=== PATIENT | male | born 1965 | race Caucasian/White ===

== ENCOUNTER 2020-08-13 08:27 | Emergency (ER) | payer BC, SELFPAY ==
[2020-08-13 08:47] VITALS: BP 139/76; PULSE 66; RESP 16; TEMP 36.2; O2SAT 99
[2020-08-13 08:54] VITALS: BP 139/76; PULSE 66; RESP 16; TEMP 36.2; O2SAT 99
--- NOTE | 2020-08-13 09:02 | ED.SKABFB ---
HPI - Skin/Abscess/Foreign Bdy General Chief complaint: Skin/Abscess/Foreign Body Stated complaint: spider bite Time Seen by Provider: 08/13/20 08:55 Source: patient and RN notes reviewed Mode of arrival: ambulatory Limitations: no limitations History of Present Illness HPI narrative: 54-year-old male presents with concern for possible spider bite. Reports he was rehabbing an old house, tearing out stallings yesterday. Reports last night he noticed a red area on his left neck that resembled a mosquito bite. Reports it was itchy. Reports this morning the area has a blackened center and the redness has gotten larger. He denies any intervention. He denies any difficulty swallowing, swollen lips, swollen tongue, fever, malaise, body aches. Denies any drainage from the area. MD complaint: insect bite/sting Related Data Home Medications Medication Instructions Recorded Confirmed amlodipine [Norvasc] 5 mg PO DAILY 08/13/20 08/13/20 Allergies Allergy/AdvReac Type Severity Reaction Status Date / Time No Known Allergies Allergy Verified 08/13/20 08:44 Review of Systems Review of Systems: Narrative: CONSTITUTIONAL: Denies malaise, chills, sweats, or fever. EYES: Denies visual changes, redness, or discharge. ENT: Denies swollen lips, swollen tongue, difficulty swallowing CARDIOVASCULAR: Denies chest pain, palpitations, or edema. RESPIRATORY: Denies dyspnea. GASTROINTESTINAL: Denies abdominal pain, nausea, vomiting SKIN: Reports red, itchy area with black center on the left side of his neck MUSCULOSKELETAL: Denies myalgia. NEUROLOGIC: Denies numbness, weakness, or headache. All systems reviewed & are unremarkable except as noted in HPI and below PMFSH Social History Social History Gender identity (if verbalized by the patient): Male Comments At time of signature, agree with nursing past medical, surgical, social and family history. There is no relevant family history pertinent to the presenting complaint Exam Narrative: Exam Narrative: GENERAL: Well-appearing, well-nourished, and in no acute distress. HEAD: Normocephalic, atraumatic. EYES: PERRLA, conjunctivae clear, and EOMI. ENT: Mucous membranes moist. Oropharynx without edema, erythema or lesions. NECK: Supple. No lymphadenopathy CHEST: Clear to auscultation. No respiratory distress. Speaks in full sentences HEART: Regular rate and rhythm. SKIN: Warm, dry. 3 cm in diameter area of erythema with mild edema noted to the left-sided anterior neck, no fluctuation, less than 0.5 cm central area of darkness, ecchymosis. No ulceration, drainage noted. NEURO: Alert and oriented x3. PSYCH: Normal mood and affect Course Course Emergency Course: Patient is aware of diagnosis, understands and agrees to treatment plan. Anticipatory guidance given. Patient agrees to follow-up as directed and is aware of reasons to seek care at the emergency department. Portions of this record may have been created with voice recognition software Vital Signs Vital signs: Vital Signs Temperature 97.1 F L 08/13/20 08:47 Pulse Rate 66 08/13/20 08:47 Respiratory Rate 16 08/13/20 08:47 Blood Pressure 139/76 08/13/20 08:47 Pulse Oximetry 99 08/13/20 08:47 Temperature 97.1 F L 08/13/20 08:54 Pulse Rate 66 08/13/20 08:54 Respiratory Rate 16 08/13/20 08:54 Blood Pressure 139/76 08/13/20 08:54 Pulse Oximetry 99 08/13/20 08:54 Reviewed. MDM - Skin/Abscess/Foreign Bdy MDM Narrative Medical decision making narrative: Exam findings show no acute concerns or changes; patient is non-toxic appearing and is in no distress. Patient is appropriate for outpatient treatment and follow-up. Differential Diagnosis Differential diagnosis: Likely abscess of skin or subcutaneous tissue, cellulitis and insect bites Critical Care Time Critical Care Time Critical Care Time: No Discharge Plan Discharge Clinical Impression: Spider bite Qualifiers: Encounter type: initi
== END 2020-08-13 09:10 | disposition home or self-care (01) ==
PROVIDERS: Emergency Provider Nurse Practitioner; PCP Nurse Practitioner Adult Health
DX: T63.304A Toxic effect of unspecified spider venom, undetermined, initial encounter (principal); I10 Essential (primary) hypertension
CPT/HCPCS: 99211; G0463

== ENCOUNTER 2020-08-14 06:38 | Emergency (ER) | payer BC, SELFPAY ==
[2020-08-14 06:48] VITALS: BP 151/77; PULSE 84; RESP 18; TEMP 36.6; O2SAT 98
--- NOTE | 2020-08-14 06:56 | ED.WOUNDLAC ---
HPI - Wound/Laceration General Chief Complaint: Wound/Laceration Stated Complaint: spider bite Time Seen by Provider: 08/14/20 06:53 Source: patient Mode of arrival: ambulatory Limitations: no limitations History of Present Illness HPI narrative: This is a 54 year old male who presents for evaluation of a possible spider bite. He noticed a red wound to his left neck yesterday. He was evaluated at [facility] yesterday for presumed spider bite because he noticed a central area of ecchymosis. He states the redness has continued to spread so he came to ER for evaluation. He reports the area is painful to touch. He denies purulent drainage. He denies fever, chills, nausea, vomiting or shortness of breath. He is unsure of his last tetanus Related Data Home Medications Medication Instructions Recorded Confirmed amlodipine [Norvasc] 5 mg PO DAILY 08/13/20 08/13/20 Allergies Allergy/AdvReac Type Severity Reaction Status Date / Time No Known Allergies Allergy Verified 08/13/20 08:44 Review of Systems Review of Systems: All systems reviewed & are unremarkable except as noted in HPI and below PMFSH Past Medical History Medical History (Updated 08/14/20 @ 07:07 by Shaina Ruiz MD) Hypertension Surgical History Surgical History (Updated 08/14/20 @ 07:00 by Shaina Ruiz MD) H/O kyphoplasty Social History Social History (Updated 08/14/20 @ 07:00 by Shaina Ruiz MD) Smoking status: Never smoker Gender identity (if verbalized by the patient): Male Exam Const: General: no acute distress and alert Orientation/consciousness: patient oriented x3 HENMT: Head: normocephalic and atraumatic Face and sinus: normal facial exam and face symmetric Eyes: EOM: EOMs intact bilaterally Skin: Other: left anterior lower neck with area 6 x 5 cm erythema, induration, tenderness, no fluctuance, no drainage, there is small central area of ecchymosis Neuro: General: patient oriented x3 and moves all extremities Psych: Mental Status: mental status grossly normal Affect: normal affect Course Reevaluation(s) Reevaluation #1: I Discussed with patient discharge plan to treat with antibiotics for cellulitis as he has not been started on any yet. He is agreeable to plan. He is non toxic appearing. Date: 08/14/20 Time: 07:05 Vital Signs Vital signs: Vital Signs Temperature 97.8 F 08/14/20 06:48 Pulse Rate 84 08/14/20 06:48 Respiratory Rate 18 08/14/20 06:48 Blood Pressure 151/77 H 08/14/20 06:48 Pulse Oximetry 98 08/14/20 06:48 Temperature 97.8 F 08/14/20 06:48 Pulse Rate 84 08/14/20 06:48 Respiratory Rate 18 08/14/20 06:48 Blood Pressure 151/77 H 08/14/20 06:48 Pulse Oximetry 98 08/14/20 06:48 Discharge Plan Discharge Clinical Impression: Cellulitis Qualifiers: Site of cellulitis: neck Qualified Code(s): L03.221 - Cellulitis of neck Patient Disposition: Home, Self-Care Condition: Stable Instructions: Antibiotic Form, Cellulitis (ED) Additional Instructions: Take antibiotics as prescribed. Take antibiotics until completion. You redness should improve after taking 48 hours of antibiotics . Return to ER if you develop vomiting, fever, worsening symptoms even after taking antibiotics for 48 hours. Prescriptions: New cephalexin 500 mg capsule 500 mg PO Q6H 10 Days Qty: 40 RF: 0 sulfamethoxazole-trimethoprim [Bactrim DS] 800-160 mg tablet 1 tablet PO Q12H Qty: 20 RF: 0 No Action amlodipine [Norvasc] 5 mg Tablet 5 mg PO DAILY RF: 0 Follow-up/Referrals: Bree,SHARLENE Ramos [Primary Care Provider] -
[2020-08-14] MEDS: TETANUS,DIPHTHERIA,AC PERTUSSIS ADULT (0.5 ML) BOOSTRIX IM (07:03)
[2020-08-14] MEDS: CEPHALEXIN 500 MG CAPSULE PO (07:03)
[2020-08-14 07:46] VITALS: BP 145/79; PULSE 78; RESP 16; O2SAT 97
== END 2020-08-14 07:48 | disposition home or self-care (01) ==
PROVIDERS: Emergency Provider General Practice; PCP Nurse Practitioner Adult Health
DX: L03.221 Cellulitis of neck (principal); I10 Essential (primary) hypertension; Z23 Encounter for immunization
CPT/HCPCS: 90471; 90715; 99283; A9270

== ENCOUNTER 2021-02-05 08:31 | Emergency (ER) | payer BC, SELFPAY ==
[2021-02-05 08:45] VITALS: BP 143/76; PULSE 76; RESP 18; TEMP 36.6; O2SAT 100
--- NOTE | 2021-02-05 08:57 | ED.SKABFB ---
HPI - Skin/Abscess/Foreign Bdy General Chief complaint: Skin/Abscess/Foreign Body Stated complaint: Possible Shingles Time Seen by Provider: 02/05/21 08:59 Source: patient, RN notes reviewed and old records reviewed Mode of arrival: ambulatory Limitations: no limitations History of Present Illness HPI narrative: 55-year-old male who presents to [facility] care with complaints of redness on scalp left occipital area with pain and itching and radiation down to left neck. Patient states that he started with a tender spot of his left occipital scalp area with pain and itching starting yesterday. Patient states that he has no other sites of pain or itching, denies any visual changes.Patient has small area of red raised rash on head with no vesicle formation. Related Data Home Medications Medication Instructions Recorded Confirmed amlodipine [Norvasc] 5 mg PO DAILY 08/13/20 02/05/21 Allergies Allergy/AdvReac Type Severity Reaction Status Date / Time No Known Allergies Allergy Verified 08/13/20 08:44 Review of Systems Review of Systems: CONSTITUTIONAL: Denies fever, chills, or sweats. EYES: Denies visual changes, redness, or discharge. ENT: Denies rhinorrhea, congestion, sore throat, or otalgia. CARDIOVASCULAR: Denies chest pain, palpitations, or edema. RESPIRATORY: Denies cough or dyspnea. GASTROINTESTINAL: Denies abdominal pain, nausea, vomiting, or diarrhea. GENITOURINARY: Denies dysuria or hematuria. SKIN: Red raised rash to left occipital area of scalp with pain and itching with pain radiating down to neck. MUSCULOSKELETAL: Denies back pain, joint pain, or myalgia. NEUROLOGIC: Denies headache, numbness, or weakness. PSYCHIATRIC: Denies anxiety or depression. All systems reviewed & are unremarkable except as noted in HPI and below PMFSH Past Medical History Medical History (Updated 02/06/21 @ 00:01 by Cooper Mcgowan) Hypertension LAVON (obstructive sleep apnea) Surgical History Surgical History (Updated 02/06/21 @ 09:34 by Emily Palmer NP) H/O kyphoplasty S/P tendon repair right hand Family History Family History (Updated 02/06/21 @ 09:33 by Emily Palmer NP) Other Family history non-contributory Social History Social History (Updated 08/14/20 @ 07:00 by Shaina Ruiz MD) Smoking status: Never smoker Gender identity (if verbalized by the patient): Male Comments At time of signature, agree with nursing past medical, surgical, social and family history. There is no relevant family history pertinent to the presenting complaint Exam Narrative: GENERAL: Well-appearing, well-nourished, and in no acute distress. HEAD: Normocephalic, atraumatic. red rash type of area to left occipital scalp pain radiating down to neck no vesicle formation noted, Pain and itching to site EYES: PERRLA and EOMI. ENT: Nares clear, no rhinorrhea or epistaxis. Mucous membranes moist.TM's normal , throat pink with no lesions or exudates, tonsil enlargement with no redness NECK: Supple. no lymphadenopathy CHEST: Clear to auscultation. No respiratory distress.SAO2 100% on room air HEART: Regular rate and rhythm. No murmur heard. Normal peripheral pulses. ABDOMEN: Soft, nontender, nondistended, normal active bowel sounds. EXTREMITIES: Normal range of motion. No edema. SKIN: Warm, dry, small red area to left occipital scalp NEURO: No focal deficits. Alert and oriented x3. Course Vital Signs Vital signs: Vital Signs Temperature 36.6 C 02/05/21 08:45 Pulse Rate 76 02/05/21 08:45 Respiratory Rate 18 02/05/21 08:45 Blood Pressure 143/76 H 02/05/21 08:45 Pulse Oximetry 100 02/05/21 08:45 Temperature 36.6 C 02/05/21 08:45 Pulse Rate 76 02/05/21 08:45 Respiratory Rate 18 02/05/21 08:45 Blood Pressure 143/76 H 02/05/21 08:45 Pulse Oximetry 100 02/05/21 08:45 MDM - Skin/Abscess/Foreign Bdy Differential Diagnosis Differential diagnosis: Likely abscess of skin or subcutaneous t
== END 2021-02-05 09:24 | disposition home or self-care (01) ==
PROVIDERS: Emergency Provider Registered Nurse; PCP Nurse Practitioner Adult Health
DX: B02.9 Zoster without complications (principal); I10 Essential (primary) hypertension
CPT/HCPCS: 99213; G0463

== ENCOUNTER 2021-10-18 08:27 | Emergency (ER) | payer BC, SELFPAY ==
[2021-10-18 08:35] VITALS: BP 134/100; PULSE 120; RESP 16; TEMP 36.4; O2SAT 97
--- NOTE | 2021-10-18 08:45 | ED.GENADULT ---
HPI - General Adult General Chief complaint: Unspecified Stated complaint: Cough Time Seen by Provider: 10/18/21 08:40 Source: patient and RN notes reviewed Mode of arrival: ambulatory Limitations: no limitations History of Present Illness HPI narrative: 55-year-old male presents to the [facility] with multiple complaints. Patient states that he has had a dry cough for over a month. Has talked his into giving him a Z-Geovanny which she recently finished. States he developed constipation, abdominal bloating, testicular swelling and lower leg swelling. Still having the cough. Denies chest pain. Denies fevers. Complains of generalized abdominal bloating, discomfort. Has a history of hypertension Treatments prior to arrival: other (Azithromycin) Related Data Home Medications Medication Instructions Recorded Confirmed amlodipine 5 mg tablet (Norvasc) 5 mg PO DAILY 08/13/20 02/05/21 tadalafil 5 mg tablet 5 mg PO DAILY 10/18/21 10/18/21 Allergies Allergy/AdvReac Type Severity Reaction Status Date / Time No Known Allergies Allergy Verified 10/18/21 08:46 Review of Systems Review of Systems: All systems reviewed & are unremarkable except as noted in HPI and below Constitutional: Constitutional: Reports no additional constitutional complaints, Denies chills and Denies fever(s) Eyes: Eyes: Reports no additional eye complaints ENT: Reports system reviewed and no additional complaints, except as documented Cardiovascular: Cardiovascular: Reports as per HPI (Bilateral lower edema) Respiratory: Respiratory: Reports as per HPI, Reports chest congestion and Reports cough Gastrointestinal: Gastrointestinal: Reports as per HPI, Reports bloating and Reports constipation Genitourinary: Genitourinary: Reports as per HPI and Reports testicular pain (Swelling) Musculoskeletal: Musculoskeletal: Reports no additional musculoskeletal complaints Integumentary/Breasts: Skin/Breast: Reports system reviewed and no additional complaints, except as docu Neurologic: Reports system reviewed and no additional complaints, except as documented Psychiatric: Psychiatric: Reports no additional psychiatric complaints Allergic/Immunologic: Allergic/Immunologic: Reports no additional allergic/immunologic complaints [facility] Past Medical History Medical History Hypertension LAVON (obstructive sleep apnea) Surgical History Surgical History H/O kyphoplasty S/P tendon repair right hand Family History Family History Other Family history non-contributory Social History Social History Smoking status: Never smoker Gender identity (if verbalized by the patient): Male Comments At the time of my signature, I reviewed and agree with the nursing past medical, surgical, social, and family history. There is no relevant family history pertinent to the patient complaint. Exam Const: General: cooperative, no acute distress, well developed, alert, awake and uncomfortable Nutritional Appearance: well nourished Orientation/consciousness: patient oriented x3 Limitations: no limitations HENMT: Head: normal to inspection Ears: external ears normal Eyes: Pupils: Equal, round and reactive pupils present Neck: Neck: normal visual inspection, no lymphadenopathy and no meningeal signs Chest: Chest palpation & inspection: normal inspection of the chest Resp: Effort & Inspection: normal respiratory effort and no use of accessory muscles Auscultation: clear to auscultation bilaterally Cardio: Rate: tachycardic Rhythm: regular rhythm GI: GI Palp: No Soft to palpation (firm) and No Tenderness to palpation present (GI) Skin: General skin exam: normal color Rashes: no rashes Wounds: no wounds Neuro: General: patient oriente
== END 2021-10-18 08:52 | disposition short-term general hospital (02) ==
PROVIDERS: Emergency Provider Nurse Practitioner; PCP Nurse Practitioner Adult Health
DX: R05.9 Cough, unspecified (principal); N50.89 Other specified disorders of the male genital organs; R60.0 Localized edema; I10 Essential (primary) hypertension; G47.33 Obstructive sleep apnea (adult) (pediatric)
CPT/HCPCS: 99211; G0463

== ENCOUNTER 2021-10-18 09:04 | Inpatient (IN) | payer BC, SELFPAY ==
[2021-10-18] VITALS (21 sets, daily range): BP systolic 102–146; BP diastolic 78–112; PULSE 61–121; RESP 16–30; TEMP 36.1–36.9; O2SAT 93–100; BMI 37.7
--- NOTE | 2021-10-18 | ECHO_ITS ---
Patient Info Name: Saurabh Metcalf Age: 55 years : 1965 Gender: Male Ht: 74 in Wt: 300 lbs BSA: 2.72 m2 HR: 82 bpm BP: 115 / 94 mmHg Heart Rhythm: Sinus Rhythm Technical Quality: Fair Exam Date: 10/18/2021 2:38 PM Exam Location: [facility] Pulmonary Exam Room: [facility] Patient Status: Inpatient Admit Date: 10/18/2021 Staff Ordering Physician: Suze Babin Radiographer Mammographer: Lauren Schneider RDCS Attending Provider: Saravanan Thomas MD Exam Type: CA echo dop color flow w con Study Info Indications - new onset heart failure Complete two-dimensional, color flow and Doppler transthoracic echocardiogram is performed with contrast to opacify the left ventricle and to improve the deliniation of the left ventricle endocardial borders. Contrast/Agitated Saline Contrast/Ag. Saline: Definity Amount: 2.00 ml Administered By: Lauren Schneider [facility] Existing IV Access: Yes IV Access Condition: patent with no signs of infiltration Summary 1. Left ventricular chamber dimension is mildly enlarged. 2. Left ventricular systolic function is severely reduced, estimated at 25-30%. 3. There is mildly increased left ventricular wall thickness. 4. Right ventricular chamber dimension is moderately enlarged. 5. Right ventricular systolic function is reduced. 6. Left atrial chamber dimension is severely enlarged. 7. Right atrial chamber dimension is severely enlarged. 8. There is no aortic valve stenosis. 9. There is mild mitral valve regurgitation. 10. There is mild to moderate tricuspid valve regurgitation. 11. No pulmonary hypertension, estimated pulmonary arterial systolic pressure is 26 mmHg. Left Ventricle Left ventricular chamber dimension is mildly enlarged. Left ventricular systolic function is severely reduced, estimated at 25-30%. There is mildly increased left ventricular wall thickness. The left ventricular diastolic function is abnormal. Right Ventricle Right ventricular chamber dimension is moderately enlarged. Right ventricular systolic function is reduced. Left Atria Left atrial chamber dimension is severely enlarged. Right Atria Right atrial chamber dimension is severely enlarged. Aortic Valve The aortic valve is probable trileaflet. There is no aortic valve stenosis. There is no aortic valve regurgitation. Pulmonic Valve The pulmonic valve is not well visualized. Mitral Valve The mitral valve has thickened leaflets. There is mild mitral valve regurgitation. The mitral valve annulus is mildly calcified. Tricuspid Valve The tricuspid valve leaflets are normal. There is mild to moderate tricuspid valve regurgitation. No pulmonary hypertension, estimated pulmonary arterial systolic pressure is 26 mmHg. Pericardium/Pleural The pericardium appears normal. There is trivial pericardial effusion. Inferior Vena Cava Dilated inferior vena cava with >50% collapse upon inspiration consistent with elevated right atrial pressure, 10 mmHg. Aorta The aortic root size at the sinus of Valsalva is normal. Left Ventricular Outflow Tract Name Value Normal LVOT 2D LVOT Diameter 2.07 cm LVOT Doppler
--- NOTE | ~2021-10-18 | XR_ITS ---
EXAMINATION: XR chest 1V portable INDICATION: Shortness of breath, TECHNIQUE: Portable AP chest at 1302 hours COMPARISON: 10/20/2021 FINDINGS: There are airspace opacities of the lung bases which is slightly increased. There is no pne umothorax. A small right pleural effusion is stable. Cardiomegaly is noted. A mild diffuse interstiti al pattern is stable. A right upper extremity PICC ends with its tip in the distal superior vena cava . IMPRESSION: 1. Cardiomegaly with stable pulmonary edema. 2. Small right pleural effusion and bibasilar airspace opacities, consistent with atelectasis versus pneumonia. Reviewed, dictated and finalized at location A. IMPRESSION: 1. Cardiomegaly with stable pulmonary edema. 2. Small right pleural effusion and bibasilar airspace opacities, consistent wi th atelectasis versus pneumonia.
--- NOTE | ~2021-10-18 | XR_ITS ---
EXAMINATION: XR chest 2V DATE: 10/18/2021 09:58 INDICATION: One month of cough TECHNIQUE: PA and lateral views of the chest were obtained. COMPARISON: Chest radiograph dated 04/05/2012 FINDINGS: Opacities in the right lower lung zone with blunting at the costophrenic angle and posterior sulcus c onsistent with small right pleural effusion and associated basilar atelectasis and/or pneumonia. Left lung is clear. No pneumothorax. Cardiomegaly. A couple chronic mid thoracic compression fractures wi th interval vertebroplasty at one of the levels. Bridging syndesmophytes throughout the thoracic and upper lumbar spine suggestive of ankylosing spondylitis. IMPRESSION: 1. Small right pleural effusion with associated right basilar atelectasis and/or pneumonia. 2. Cardiomegaly. Reviewed, dictated and finalized at location B. IMPRESSION: 1. Small right pleural effusion with associated right basilar atelectasis and/o r pneumonia. 2. Cardiomegaly.
--- NOTE | ~2021-10-18 | US_ITS ---
EXAMINATION: US abdomen limited DATE: 10/20/2021 09:00 INDICATION: Elevated LFTs. TECHNIQUE: Multiple grayscale and Doppler ultrasound images of the abdomen were obtained. COMPARISON: None available FINDINGS: Liver poorly visualized. Left lobe obscured. Right lobe appears heterogeneous with a nodula r surface. Abnormal portal vein flow, limited by significant motion. Gallbladder wall thickness is 3 mm, trace pericholecystic fluid, these are nonspecific findings in the setting of chronic liver disea se. The normal common bile duct measures 4 mm. There was no sonographic Pineda sign. IVC not visualiz ed. IMPRESSION: 1. Exam limited as described above. 2. Sonographic findings suggest cirrhosis with portal hypertension. Reviewed, dictated and finalized at location K.
--- NOTE | ~2021-10-18 | XR_ITS ---
EXAMINATION: XR chest PICC line INDICATION: PICC insertion TECHNIQUE: Portable AP chest at 10/18/2021 COMPARISON: 10/18/2021 FINDINGS: A right upper extremity PICC has been inserted which ends with its tip at the superior cavo atrial junction. Cardiomegaly is noted. There is a diffuse interstitial pattern. A small right pleura l effusion is unchanged. Right basilar airspace opacities are stable. There is no pneumothorax. IMPRESSION: 1. Right upper extremity PICC ending with its tip at the superior cavoatrial junction. 2. Cardiomegaly with pulmonary edema. 3. Small right pleural effusion with right basilar airspace opacities, atelectasis versus pneumonia. Reviewed, dictated and finalized at location F. IMPRESSION: 1. Right upper extremity PICC ending with its tip at the superior cavoatrial ju nction. 2. Cardiomegaly with pulmonary edema. 3. Small right pleural effusion with right basilar airspace opacities, atelecta sis versus pneumonia.
--- NOTE | ~2021-10-18 | XR_ITS ---
EXAMINATION: XR chest 1V portable INDICATION: Heart failure, cough TECHNIQUE: Portable AP chest at 0550 hours COMPARISON: 10/19/2021 FINDINGS: A right upper extremity PICC ends with its tip in the distal superior vena cava. Cardiomega ly is noted. There is a persistent but decreased interstitial pattern. Airspace opacities are present in the right lung base. There is no pneumothorax. A small right pleural effusion is present. IMPRESSION: 1. Cardiomegaly with improving pulmonary edema. 2. Small right pleural effusion with right basilar airspace opacities, consistent with atelectasis ve rsus pneumonia. Reviewed, dictated and finalized at location A. IMPRESSION: 1. Cardiomegaly with improving pulmonary edema. 2. Small right pleural effusion with right basilar airspace opacities, consiste nt with atelectasis versus pneumonia.
--- NOTE | ~2021-10-18 | XR_ITS ---
XR chest 2V DATE: 10/24/2021 08:54 INDICATION: Congestive heart failure. Cough, shortness of breath. TECHNIQUE: PA and lateral views COMPARISON: 10/21/2021, 10/20/2021, 10/20/2019 portable AP chest FINDINGS: There are bibasilar infiltrates and/atelectasis, right greater than left, improved bilatera lly since 10/21/2021. Cardiomegaly. There is diminished pulmonary vascular prominence since recent examinations dating back to 10/19/2021. Small right pleural effusion. No pneumothorax. Right upper extremity PIC catheter in superior vena cava. Vertebroplasty is noted at T7. Osteopenia. IMPRESSION: Improvement of pulmonary vascular congestion and bibasilar infiltrate or atelectasis sinc e recent examinations; persistent basilar infiltrate and/or atelectasis, right greater than left, sma ll right pleural effusion Reviewed, dictated and finalized at location A. IMPRESSION: Improvement of pulmonary vascular congestion and bibasilar infiltra te or atelectasis since recent examinations; persistent basilar infiltrate and/ or atelectasis, right greater than left, small right pleural effusion
--- NOTE | 2021-10-18 09:35 | ECG_ITS ---
Measurements Intervals [place] Rate: 120 P: [place]: 0 QRS: -40 QRSD: 106 T: 79 QT: 334 QTc: 473 Interpretive Statements ATRIAL FLUTTER/TACHYCARDIA WITH RAPID VENTRICULAR RESPONSE CANNOT RULE OUT ANTEROSEPTAL INFARCTION, AGE INDETERMINATE CANNOT RULE OUT INFERIOR MYOCARDIAL INFARCTION , PROBABLY OLD [40+ ms Q WAVE AND/OR ST/T ABNORMALITY IN II/aVF] ABNORMAL ECG NO PREVIOUS ECG AVAILABLE FOR COMPARISON Electronically Signed On 10-18-2021 17:46:51 CDT by Buzz Berumen M.D.
[2021-10-18 09:48] LABS: Basophils Percent Auto 0.4 % (0.2-1.2); Eosinophils Absolute Auto 0.1 K/mm3 (0-0.3); Eosinophils Percent Auto 1.3 % (0-4.4); Hematocrit 48.2 % (42.0-52.0); Hemoglobin 15.4 g/dL (14.0-18.0); Immature Granulocyte Absolute 0.02 K/mm3 (0.00-0.031); Immature Granulocyte Percent A 0.3 % (0-0.5); Lymphocytes Absolute Auto 1.47 K/mm3 (0.9-3.2); Lymphocytes Percent Auto 20.6 % (18.3-44.2); Mean Corpuscular Hemoglobin 30.7 pg (26-34); Mean Platelet Volume 10.8 fl (7.4-10.4); Monocytes Absolute Auto 0.7 K/mm3 (0.1-0.6); Monocytes Percent Auto 10.1 % (2.6-8.5); Neutrophils Absolute Auto 4.8 K/mm3 (1.3-6.7); Neutrophils Percent Auto 67.3 % (45.5-73.1); Platelet Count Result 175 k/mm3 (150-375); Red Blood Count 5.02 M/mm3 (4.6-6.20); White Blood Count 7.1 K/mm3 (4.5-10.0)
[2021-10-18 09:50] LABS: Appearance Urine Clear (Clear); Bilirubin Urine Negative (Negative); Blood Urine Negative (Negative); Color Urine Yellow (Yellow); Glucose Urine UA Negative (Negative); Ketones Urine Negative (Negative); Leukocyte Esterase Ur Negative LEU/UL (Negative); Nitrate Urine Negative (Negative); Protein Urine 2+ mg/dL (Negative); Specific Grav Ur 1.015 (1.001-1.035); Urobilinogen Urine 0.2 mg/dL (<2.0)
[2021-10-18 10:00] LABS: Alanine Aminotransferase 57 U/L (6-50); Albumin Level 4.3 g/dL (3.5-5.1); Alkaline Phosphatase 78 U/L (38-126); Anion Gap 8 mmol/L (8-16); Aspartate Amino Transferase 41 U/L (17-59); Bilirubin,Total 1.1 mg/dL (0.2-1.3); Blood Urea Nitrogen 13 mg/dL (9-20); Calcium 8.9 mg/dL (8.4-10.2); Carbon Dioxide 22 mmol/L (22-30); Chloride 108 mmol/L (98-107); Estimated CRCL calculation 111 ml/min; Estimated Glomerular Filt Rate > 60; Glucose 136 mg/dL (65-110); Sodium 138 mmol/L (137-145)
--- NOTE | 2021-10-18 10:02 | ED.GENADULT ---
HPI - General Adult General Chief complaint: Unspecified Stated complaint: LOWER EXT SWELLING, COUGH X2WKS Time Seen by Provider: 10/18/21 09:57 History of Present Illness HPI narrative: 55-year-old male with a history of high blood pressure presents to the emergency room for evaluation of a worsening cough over the past month. Patient states that the cough is intermittent throughout the day and describes it as dry. Patient states that he took a course of azithromycin earlier this week without any change in symptoms. Patient denies fever, shortness of breath, or chest pain. Patient also states that he has noticed both of his lower extremities have been swelling, abdominal bloating and swelling to his testicles. Related Data Home Medications Medication Instructions Recorded Confirmed amlodipine 5 mg tablet (Norvasc) 5 mg PO DAILY 08/13/20 10/18/21 celecoxib 200 mg capsule cap 10/18/21 naltrexone 8 mg-bupropion 90 mg 2 tablet PO 10/18/21 tablet,extended release (Contrave) tadalafil 5 mg tablet 5 mg PO DAILY 10/18/21 10/18/21 Allergies Allergy/AdvReac Type Severity Reaction Status Date / Time No Known Allergies Allergy Verified 10/18/21 08:46 Review of Systems Review of Systems: CONSTITUTIONAL: Denies fever, chills, or sweats. EYES: Denies visual changes, redness, or discharge. ENT: Denies rhinorrhea, congestion, sore throat, or otalgia. CARDIOVASCULAR: Reports bilateral lower extremity edema RESPIRATORY: Reports cough GASTROINTESTINAL: Reports abdominal bloating and constipation GENITOURINARY: Denies dysuria or hematuria. SKIN: Denies rash or itching. MUSCULOSKELETAL: Denies back pain, joint pain, or myalgia. NEUROLOGIC: Denies headache, numbness, dizziness, or weakness. PSYCHIATRIC: Denies anxiety or depression. [facility] Past Medical History Medical History Hypertension LAVON (obstructive sleep apnea) Surgical History Surgical History H/O kyphoplasty S/P tendon repair right hand Family History Family History Other Family history non-contributory Social History Social History Smoking status: Never smoker Gender identity (if verbalized by the patient): Male Course Vital Signs Vital signs: Vital Signs Temperature 36.4 C 10/18/21 09:27 Pulse Rate 120 H 10/18/21 09:27 Respiratory Rate 19 10/18/21 09:27 Blood Pressure 128/99 H 10/18/21 09:27 Pulse Oximetry 97 10/18/21 09:27 Oxygen Delivery Room Air 10/18/21 09:27 Temperature 36.4 C 10/18/21 09:27 Pulse Rate 92 10/18/21 13:02 Respiratory Rate 22 H 10/18/21 13:02 Blood Pressure 115/94 H 10/18/21 13:02 Pulse Oximetry 96 10/18/21 13:02 Oxygen Delivery Room Air 10/18/21 09:27 Medical Decision Making MDM Narrative Medical decision making narrative: 55-year-old male with no history of heart failure presenting with likely new onset of congestive heart failure and volume overload with pulmonary edema. Patient was given Lasix and metoprolol in the emergency room for the acute management. Chest x-ray shows right-sided pulmonary effusion, BNP was 3300. Troponin was negative. We will admit patient for observation, diuresis, and will likely consultation with cardiology. Vital Signs Vital Signs: Vital Signs Temperature 36.4 C 10/18/21 09:27 Pulse Rate 120 H 10/18/21 09:27 Respiratory Rate 19 10/18/21 09:27 Blood Pressure 128/99 H 10/18/21 09:27 Pulse Oximetry 97 10/18/21 09:27 Oxygen Delivery Room Air 10/18/21 09:27 Temperature 36.4 C 10/18/21 09:27 Pulse Rate 92 10/18/21 13:02 Respiratory Rate 22 H 10/18/21 13:02 Blood Pressure 115/94 H 10/18/21 13:02 Pulse Oximetry 96 10/18/21 13:02 Oxygen Delivery Room Air 10/18/21 09:27 Lab
[2021-10-18 10:03] LABS: RBC Urine 0-2 /hpf (0-2); WBC Urine 0-3 /hpf
[2021-10-18 10:18] LABS: Add Urine Microscopic? YES
[2021-10-18 10:52] LABS: NT Pro B Type Natriuretic Pept 3870 pg/mL (5-100); Troponin I 0.019 ng/mL (0.000-0.034)
[2021-10-18] MEDS: FUROSEMIDE INJ 40 MG/4 ML VIAL IV PUSH (12:39)
[2021-10-18] MEDS: METOPROLOL TARTRATE INJ 5 MG/5 ML VIAL IV PUSH (12:39)
[2021-10-18 12:54] LABS: Lactic Acid Reflex 0.8 mmol/L (0.7-2.0)
--- NOTE | 2021-10-18 13:28 | PM.IMHP ---
H&P: [facility] History of Present Illness Date/Time: 10/18/21 13:28 Chief Complaint: Cough for 2 weeks and bilateral lower extremity edema with dyspnea Narrative: This 55-year-old gentleman with past medical history of hypertension, obstructive sleep apnea with use of home CPAP, obesity presents to the emergency room with complaints of having a cough for the past 1 and half months along with dyspnea that is worse with exertion. He states when his cough for started he use [id number] medications such as Robitussin, guaifenesin and Zyrtec and he then took a Z-Geovanny 2 weeks ago without any improvement in the coughing which was nonproductive. Over the past week he has noticed that the swelling that is usually intermittent in his legs has stayed and has worsened in the amount of swelling that is there. He reports that he feels as though he has edema also in the midsection of his abdomen. When he walks he becomes acutely dyspneic and air hungry. Patient denies ever having seen a mingler operator nor has he ever had any cardiac history. On presentation to the emergency room he was found to be edematous in the bilateral lower extremities pitting 1 to 2+. In addition his chest x-ray show a small right-sided pleural effusion with associated right basilar atelectasis or pneumonia. Labs are not indicative of any acute infection. Vital signs showed tachycardia ranging from the 1 teens to 120s. EKG read atrial flutter with RVR with a rate of 120, however this is not what is indicative on the monitor. We will repeat EKG. Patient denies any overt chest pain, dyspnea at rest but does endorse that deep breathing on my exam caused him to feel increasing short of breath as well as the edema has now traveled up to his scrotum. There is no weeping from any of the edematous regions. Patient has no headache, dizziness and other symptoms to report at this time. Review of Systems Review of Systems: As noted in HPI [facility] Past Medical History Medical History Hypertension LAVON (obstructive sleep apnea) Surgical History Surgical History H/O kyphoplasty S/P tendon repair right hand Family History Family History Other Family history non-contributory Social History Social History Smoking status: Never smoker Gender identity (if verbalized by the patient): Male Meds Home Medications and Allergies Home Medications Medication Instructions Recorded Confirmed Type amlodipine 5 mg tablet (Norvasc) 5 mg PO DAILY 08/13/20 10/18/21 History celecoxib 200 mg capsule cap 10/18/21 History naltrexone 8 mg-bupropion 90 mg 2 tablet PO 10/18/21 History tablet,extended release (Contrave) tadalafil 5 mg tablet 5 mg PO DAILY 10/18/21 10/18/21 History Allergies Allergy/AdvReac Type Severity Reaction Status Date / Time No Known Allergies Allergy Verified 10/18/21 08:46 Vital Signs Vital Signs - 24 hr 10/18/21 09:27 10/18/21 09:44 10/18/21 09:31 Temperature 97.6 F Pulse Rate 120 H 121 H Respiratory Rate 19 Blood Pressure 128/99 H Pulse Oximetry 97 96 Oxygen Delivery Room Air 10/18/21 09:32 10/18/21 09:45 10/18/21 09:46 Temperature Pulse Rate 120 H 121 H 121 H Respiratory Rate 23 H 24 H 28 H Blood Pressure 138/112 H 146/101 H Pulse Oximetry 100 95 95 Oxygen Delivery 10/18/21 10:00 10/18/21 10:02 10/18/21 10:03 Temperature Pulse Rate 121 H 121 H 121 H Respiratory Rate 16 30 H 28 H Blood Pressure 130/103 H Pulse Oximetry 98 96 96 Oxygen Delivery 10/18/21 10:31 10/18/21 10:32 10/18/21 10:45 Temperature Pulse Rate 119 H 119 H 119 H Respiratory Rate 27 H 29 H 27 H Blood Pressure 132/101 H Pulse Oximetry 93 96 94 Oxygen Delivery 10/18/21 11:19 10/18/21
--- NOTE | 2021-10-18 13:42 | ECG_ITS ---
Measurements Intervals [place] Rate: 87 P: -73 [place]: 187 QRS: -40 QRSD: 106 T: 0 QT: 220 QTc: 266 Interpretive Statements ATRIAL FLUTTER WITH VARIABLE AV BLOCK NONSPECIFIC ST & T-WAVE ABNORMALITY ABNORMAL ECG COMPARED TO ECG 10/18/2021 09:43:53 ECTOPIC ATRIAL RHYTHM NOW PRESENT HEART RATE HAS DECREASED Electronically Signed On 10-18-2021 17:59:27 CDT by Buzz Berumen M.D.
[2021-10-18 14:00] LABS: Magnesium 2.1 mg/dL (1.6-2.3)
--- NOTE | 2021-10-18 14:36 | PC.NURSE ---
This patient, Saurabh Metcalf, was admitted to 3 Med Surg Room 313-01 at 1415. Patient/family oriented to hospital policies and general routines including ID bracelet, bed and alarms, visiting hours, pain management, procedures, bathroom and other care routines, personal items, smoking policy, room service/diet, and visiting hours. Information on how to activate the Rapid Response Team has been discussed. Patient/Family are encouraged to report perceived risks to care and to ask questions if they do not understand what they are told or what they should do.
[2021-10-18] MEDS: PERFLUTREN LIPID MICROSPHERES 1.5 ML VIAL DILUTED TO 10 ML TOTAL VOLUME IV PUSH (15:08)
--- NOTE | 2021-10-18 15:09 | IVDEFINITY ---
Prior to administration of IV Definity the patient was educated on the risks and benefits of the imaging enhancing agent including potential adverse side effects. The patient verbalized understanding. Allergies were verified. No exclusion criteria were identified and at least one of the following inclusion criteria were met: 1) physician request, 2) patient technically difficult to image (per the [place] [employer] guidelines of two or more segments not discernable within the apical view), or 3) questionable left ventricular function. ?
[2021-10-18 16:50] LABS: Troponin I 0.021 ng/mL (0.000-0.034)
[2021-10-18 19:49] LABS: Troponin I 0.023 ng/mL (0.000-0.034)
[2021-10-18] MEDS: guaiFENesin 12 HR 600 MG TABCR PO (21:23)
[2021-10-19] VITALS (15 sets, daily range): BP systolic 64–122; BP diastolic 38–91; PULSE 26–92; RESP 17–25; TEMP 35.8–36.6; O2SAT 91–98
[2021-10-19 06:42] LABS: Basophils Percent Auto 0.5 % (0.2-1.2); Eosinophils Absolute Auto 0.2 K/mm3 (0-0.3); Eosinophils Percent Auto 2.4 % (0-4.4); Hematocrit 45.9 % (42.0-52.0); Hemoglobin 14.6 g/dL (14.0-18.0); Immature Granulocyte Absolute 0.03 K/mm3 (0.00-0.031); Immature Granulocyte Percent A 0.5 % (0-0.5); Lymphocytes Absolute Auto 1.92 K/mm3 (0.9-3.2); Lymphocytes Percent Auto 28.9 % (18.3-44.2); Mean Corpuscular HGB Conc 31.8 g/dl (32-36); Mean Corpuscular Hemoglobin 30.7 pg (26-34); Mean Corpuscular Volume 96.6 fl (80-100); Mean Platelet Volume 10.8 fl (7.4-10.4); Monocytes Absolute Auto 0.7 K/mm3 (0.1-0.6); Monocytes Percent Auto 10.4 % (2.6-8.5); Neutrophils Absolute Auto 3.8 K/mm3 (1.3-6.7); Neutrophils Percent Auto 57.3 % (45.5-73.1); Platelet Count Result 156 k/mm3 (150-375); Red Blood Count 4.75 M/mm3 (4.6-6.20); Red Cell Distribution Width 13.9 % (11.5-14.5); White Blood Count 6.7 K/mm3 (4.5-10.0)
[2021-10-19 06:51] LABS: Alanine Aminotransferase 48 U/L (6-50); Albumin Level 3.8 g/dL (3.5-5.1); Alkaline Phosphatase 75 U/L (38-126); Anion Gap 8 mmol/L (8-16); Aspartate Amino Transferase 36 U/L (17-59); Bilirubin,Total 1.2 mg/dL (0.2-1.3); Blood Urea Nitrogen 16 mg/dL (9-20); Calcium 8.6 mg/dL (8.4-10.2); Carbon Dioxide 25 mmol/L (22-30); Chloride 104 mmol/L (98-107); Estimated CRCL calculation 100 ml/min; Estimated Glomerular Filt Rate > 60; Glucose 87 mg/dL (65-110); Magnesium 2.1 mg/dL (1.6-2.3); Potassium 4.1 mmol/L (3.4-5.0); Sodium 137 mmol/L (137-145)
--- NOTE | 2021-10-19 07:48 | PM.CNCAR ---
Assessment and Plan Assessment and plan (1) Cardiomyopathy: Code(s): I42.9 - Cardiomyopathy, unspecified <SABRINA Oliva - Last Filed: 10/19/21 12:28> Status: Acute <SABRINA Oliva - Last Filed: 10/19/21 12:28> Assessment and Plan: Newly diagnosis of cardiomyopathy. Echocardiogram yesterday showing severely reduced systolic function with an ejection fraction of 25-30%. I discussed at length with the patient possible etiologies, pathophysiology, and treatment/management of HFrEF. Probably nonischemic in etiology. Recommendations are as follows: Coronary angiography to rule out ischemic etiology Will start him on guideline directed medical therapy for HFrEF Discontinue Norvasc to allow more room with BP to add/titrate HF meds Start Entresto - Will start beta gail in the form of metoprolol tartrate 12.5mg b.i.d as he has paroxysmal atrial flutter and is tachycardic at times Observe BP tolerance to these then will consider adding spironolactone Add SGLT2 inhibitor when volume status is stable Diuresis with furosemide 40mg IV b.i.d. for now Discussed the concept of a LifeVest with the patient as he is at risk for dangerous arrhythmias because of his cardiomyopathy. He would like to proceed with this. Order has been placed Monitor renal function and electrolytes with daily BMP Closely monitor BP with initiation of new medications <SABRINA Oliva - Last Filed: 10/19/21 12:28> (2) Atrial flutter: Code(s): I48.92 - Unspecified atrial flutter <SABRINA Oliva - Last Filed: 10/19/21 12:28> Status: Acute <SABRINA Oliva - Last Filed: 10/19/21 12:28> Assessment and Plan: Paroxysmal. Chronicity unknown. Patient does report palpitations from time to time over the years, so may have been experiencing paroxysms of atrial fibrillation/flutter for quite some time. He does have LAVON and severe LEIF so atrial arrhythmias are not surprising. Will pursue rate control strategy with low-dose metoprolol as above. He does have a [id number] score of 2 (LV dysfunction, HTN). Systemic anticoagulation is indicated. Will start him on Xarelto 20mg daily. This will need to be held for 48 hours prior to LHC if cath is to be done during this admission. <SABRINA Oliva - Last Filed: 10/19/21 12:28> (3) Heart failure: Code(s): I50.9 - Heart failure, unspecified <SABRINA Oliva - Last Filed: 10/19/21 12:28> Status: Acute <SABRINA Oliva - Last Filed: 10/19/21 12:28> Assessment and Plan: Medical management as above Daily weights KAILA hose accurate intake and output CHF counseling Dietary c/s for low sodium diet <SABRINA Oliva - Last Filed: 10/19/21 12:28> (4) Hypertension: Code(s): I10 - Essential (primary) hypertension <SABRINA Oliva - Last Filed: 10/19/21 12:28> Status: Acute <SABRINA Oliva - Last Filed: 10/19/21 12:28> Assessment and Plan: Currently at goal <SABRINA Oliva - Last Filed: 10/19/21 12:28> (5) Dyspnea: Code(s): R06.00 - Dyspnea, unspecified <SABRINA Oliva - Last Filed: 10/19/21 12:28> Status: Acute <SABRINA Oliva - Last Filed: 10/19/21 12:28> Assessment and Plan: Secondary to volume overload from CHF <SABRINA Oliva - Last Filed: 10/19/21 12:28> Additional Plan Attending Addendum: I have personally seen and examined this patient at bedside. I agree with the above documentation and plan of care as outlined. -patient is a very pleasant 55-year-old gentleman past medical history significant for hypertension, LAVON on CPAP, obesity and alcohol abuse who was admitted to the hospital complaints of progressive cough shortness of breath and fatigue. Patient states since been going on for several months gradual progressive culminating in severe AVILES, orthop
[2021-10-19] MEDS: guaiFENesin 12 HR 600 MG TABCR PO ×2 (09:37→21:20)
--- NOTE | 2021-10-19 10:06 | PM.IMPN ---
Progress Note: A&P Assessment and Plan (1) Dyspnea: Code(s): R06.00 - Dyspnea, unspecified Status: Acute Assessment and Plan: -likely secondary to new onset congestive heart failure as evidenced by physical exam with 1+ pitting edema to the bilateral lower extremities, chest x-ray results, elevated BNP, and rales present to the left lower lobe of the lung on auscultation. -Cardiology consulted -telemetry -echocardiogram 10/18/2021 EF 25-30% severely enlarged left atrium and right atrium right ventricular systolic function reduced [id number] TR mild MR -repeat EKG secondary to the original showing atrial flutter and not matching what is shown on telemetry in the ER. -continue diuresis with 40 mg Lasix IV b.i.d. -daily weight -accurate I&O -trend labs and vital signs. -serial troponin - Cardiac diet (2) Cough: Code(s): R05.9 - Cough, unspecified Status: Inactive Assessment and Plan: -low suspicion for any acute infectious process as new onset heart failure is most likely the causative factor. However, patient's chest x-ray did show a possible pneumonia present versus atelectasis. Started on Rocephin 1 g IV daily as well as Zithromax 500 mg daily for possible pneumonia -consider repeat chest x-ray in 2-3 days to re-evaluate. -follow labs and vitals -continue guaifenesin (3) Hypertension: Code(s): I10 - Essential (primary) hypertension Status: Acute Assessment and Plan: -monitor vital signs. -continue home dose of amlodipine 5 mg p.o. daily. Metoprolol and Entresto started With low ejection fraction may discontinue amlodipine He did present with non optimal hypertension (4) Cardiac arrhythmia: Code(s): I49.9 - Cardiac arrhythmia, unspecified Status: Acute Assessment and Plan: - Etiology likely secondary to new onset heart failure and heart strain. - Serial troponin negative -telemetry -patient given metoprolol 5 mg IV push in ER. Metoprolol oral started - Monitor labs and VS. - Consult Cardiology. -magnesium replacement (5) Heart failure: Code(s): I50.9 - Heart failure, unspecified Status: Acute (6) Cardiomyopathy: Code(s): I42.9 - Cardiomyopathy, unspecified Status: Acute Assessment and Plan: Low ejection fraction Ischemic evaluation Apnea link test night (7) Atrial flutter: Code(s): I48.92 - Unspecified atrial flutter Status: Acute Assessment and Plan: EKG reviewed atrial flutter with RVR. Will place on full-dose anticoagulation (8) Obstructive sleep apnea: Code(s): G47.33 - Obstructive sleep apnea (adult) (pediatric) Status: Acute Assessment and Plan: On CPAP uses religiously since more than 10 years Will check ApneaLink tonight with CPAP on Subjective Date/time seen: 10/19/21 10:06 Interval history: HPI: This 55-year-old gentleman with past medical history of hypertension, obstructive sleep apnea with use of home CPAP, obesity presents to the emergency room with complaints of having a cough for the past 1 and half months along with dyspnea that is worse with exertion.? He states when his cough for started he use [id number] medications such as Robitussin, guaifenesin and Zyrtec and he then took a Z-Geovanny 2 weeks ago without any improvement in the coughing which was nonproductive.? Over the past week he has noticed that the swelling that is usually intermittent in his legs has stayed and has worsened in the amount of swelling that is there.? He reports that he feels as though he has edema also in the midsection of his abdomen.? When he walks he becomes acutely dyspneic and air hungry.? Patient denies ever having seen a weaving loom operator nor has he ever had any cardiac history.? On presentation to the emergency room he was found to be edematous in the bilateral lower extremities pitting 1 to 2+.? In addition his chest x-ray show a small right-sided pleural effusion with
[2021-10-19] MEDS: FUROSEMIDE INJ 40 MG/4 ML VIAL IV PUSH (11:55)
[2021-10-19] MEDS: METOPROLOL TARTRATE 12.5 MG TABLET PO (11:55)
[2021-10-19] MEDS: SACUBITRIL/VALSARTAN 24-26 MG TABLET 1 TAB PO (11:55)
--- NOTE | 2021-10-19 13:36 | ECG_ITS ---
Measurements Intervals [place] Rate: 96 P: 264 [place]: 238 QRS: -53 QRSD: 105 T: 120 QT: 223 QTc: 283 Interpretive Statements ATRIAL FLUTTER WITH VARIABLE AV BLOCK LEFT ANTERIOR FASCICULAR BLOCK [QRS AXIS <= -45, QR IN I, RS IN II] CANNOT RULE OUT ANTERIOR MYOCARDIAL INFARCTION , OF INDETERMINATE AGE [30 ms Q WAVE IN V3/V4, OR R < 0.2 mV IN V4] ABNORMAL ECG COMPARED TO ECG 10/18/2021 15:35:53 LEFT ANTERIOR FASCICULAR BLOCK NOW PRESENT POSSIBLE MYOCARDIAL INFARCT FINDING NOW PRESENT Electronically Signed On 10-19-2021 17:21:35 CDT by Buzz Berumen M.D.
[2021-10-19 14:03] LABS: Alveolar/Arterial O2 Gradient 553.2 mmHg; Base Excess ABG -4.9 mEq/l (+/-2.0); Fractional Inspired Oxygen 100 %; HCO3 ABG 18.2 mEq/l (22.0-26.0); Oxygen Content ABG 23.2 %vol (16.0-22.0); Oxygen Saturation ABG 98.7 % (95.0-100.0); Oxyhemoglobin 97.8 % THb (90.0-100.0); PCO2 ABG 29.5 mmHg (35.0-45.0); PO2 ABG 130.3 mmHg (80.0-100.0); Total Hemoglobin 16.8 g/dL (12.0-18.0); pH ABG 7.407 (7.350-7.450)
[2021-10-19 14:04] LABS: Device NON-REBREATHER MASK; Modified Allen's Test Pass; Site Drawn LEFT RADIAL
[2021-10-19 14:19] LABS: Glucose Point of Care 201 mg/dl (65-105)
--- NOTE | 2021-10-19 14:24 | WPDCNINT ---
Assessment and Plan Assessment and plan (1) Hypotension: Code(s): I95.9 - Hypotension, unspecified Status: Acute Assessment and Plan: Patient was found to be hypotensive and bradycardic after he received metoprolol, Lasix and Entresto afternoon on 10/19/2021, shortly after which he became symptomatic. -will give IV fluids, along with albumin. -discussed with patient that if his blood pressures do not improve we will have to place a central line and start him on pressors, to which he is agreeable -continue to monitor blood pressures closely -will check lactic acid (2) Cardiomyopathy: Code(s): I42.9 - Cardiomyopathy, unspecified Status: Acute Assessment and Plan: New onset cardiomyopathy, could be related to hypertension alcoholic, ischemic -cardiology following the patient -will currently hold metoprolol, Entresto and Lasix -was blood pressures improve will introduce these medications gradually 10/18/21: Echocardiogram showed severe cardiomyopathy with EF of 25-30%, reduces RV systolic function, says left atrial dimension is severely enlarged, right atrial dimension is severely enlarged. (3) Atrial flutter: Code(s): I48.92 - Unspecified atrial flutter Status: Acute Assessment and Plan: New onset atrial fibrillation/flutter, currently rate controlled. -patient on rivaroxaban and will continue (4) Obstructive sleep apnea: Code(s): G47.33 - Obstructive sleep apnea (adult) (pediatric) Status: Acute Assessment and Plan: Patient has a history of obstructive sleep apnea and uses CPAP at home which we will continue (5) Heart failure: Code(s): I50.9 - Heart failure, unspecified Status: Acute Assessment and Plan: Continue management per Cardiology, currently holding all meds due to hypotension -BNP was 3870 -patient may require cardiac catheterization at some point during this admission to rule out ischemia (6) DVT prophylaxis: Code(s): Z29.9 - Encounter for prophylactic measures, unspecified Status: Acute Assessment and Plan: Continue rivaroxaban Plan -Continue IV fluid bolus, albumin -if blood pressures do not improve, will place central line and start him on some vasopressor for adequate end organ perfusion -hold all antihypertensives and diuretics -CPAP at night and while sleeping during the day -Accu-Cheks with low-dose sliding scale Additional Plan Discuss with patient and his spouse and updated them with patient's condition and plan of care. I answered all questions Discussed with cardiology and hospitalist Code status: full code Critical care time spent: 51 minutes This dictation may have been done utilizing a voice recognition system. Attempts have been made to correct errors. However, there may be uncorrected grammatical, spelling, and recognition errors present. Due to a high probability of clinically significant, life threatening deterioration, the patient required my highest level of preparedness to intervene emergently and I personally spent this critical care time directly and personally managing the patient. This critical care time included obtaining a history; examining the patient; pulse oximetry; ordering and review of studies; arranging urgent treatment with development of a management plan; evaluation of patient's response to treatment; frequent reassessment; and discussions with other providers. It was exclusive of separately billable procedures and treating other patients and teaching time. Please see Assessment and Plan section and the rest of the note for further information on patient assessment and treatment [employer] Consult Note Consult date: 10/19/21 Reason for consult: Hypotension likely related to medications HPI: Saurabh Metcalf is a 55 year old male history of obstructive sleep apnea on CPAP at home, essential hypertension presented the ED on 10/18/2021 with complains of shortness of qamar
--- NOTE | 2021-10-19 14:24 | PC.NURSE ---
This patient, Saurabh Metcalf, was received from [[id number]] on 10/19/21 at 1356 after a rapid response. Patient/family oriented to unit policies and routines. Bedside report received from Brianna [facility] Pt. stable upon transfer.
[2021-10-19 15:03] LABS: INR 1.3; Prothrombin Time 16.1 Seconds (11.1-14.7)
[2021-10-19 15:09] LABS: Lactic Acid Reflex 2.2 mmol/L (0.7-2.0)
[2021-10-19] MEDS: ALBUMIN HUMAN 25% 25 GM/100 ML 100 ML IVPB ×3 (15:11→23:01)
[2021-10-19] MEDS: LIDOCAINE HCL 1% PF INJ 5 ML VIAL INFILTRATE (15:30)
[2021-10-19] MEDS: ACETAMINOPHEN 325 MG TABLET 650 MG PO ×2 (17:36→23:00)
[2021-10-19] MEDS: guaiFENesin/CODEINE (*CRX) 200/20 MG 10 ML SYRUP PO ×2 (17:37→23:00)
[2021-10-19 17:50] LABS: Reflex Lactic Acid Yes or No Add Lactic
[2021-10-19 17:53] LABS: Glucose Point of Care 107 mg/dl (65-105)
[2021-10-19 18:20] LABS: SARS-CoV-2 RNA PCR Negative
[2021-10-19 18:36] LABS: Lactic Acid 1.8 mmol/L (0.7-2.0)
[2021-10-19 20:58] LABS: Glucose Point of Care 107 mg/dl (65-105)
[2021-10-19] MEDS: BENZONATATE 100 MG CAPSULE PO (21:20)
[2021-10-19] MEDS: ENOXAPARIN 60 MG/0.6 ML SYRINGE 55 MG SUB-Q (21:21)
[2021-10-19] MEDS: CENTRAL LINE FLUSH 10 ML IV PUSH (21:22)
[2021-10-19] MEDS: ENOXAPARIN 80 MG/0.8 ML SYRINGE SUB-Q (21:22)
[2021-10-20] VITALS (19 sets, daily range): BP systolic 102–145; BP diastolic 59–102; PULSE 66–120; RESP 12–29; TEMP 36.4–37.2; O2SAT 94–99
--- NOTE | 2021-10-20 05:38 | PCRCNOTE ---
Apnea Link will need to be redone tonight. Pulse oximeter malfunction noted on morning report. Minimal pulse oximetry data captured.
[2021-10-20] MEDS: ALBUMIN HUMAN 25% 25 GM/100 ML 100 ML IVPB ×3 (05:52→15:26)
[2021-10-20] MEDS: CENTRAL LINE FLUSH 10 ML IV PUSH ×3 (05:53→20:59)
[2021-10-20] MEDS: guaiFENesin/CODEINE (*CRX) 200/20 MG 10 ML SYRUP PO ×3 (05:53→19:24)
[2021-10-20 06:13] LABS: Basophils Percent Auto 0.4 % (0.2-1.2); Eosinophils Absolute Auto 0.1 K/mm3 (0-0.3); Eosinophils Percent Auto 0.8 % (0-4.4); Hematocrit 45.4 % (42.0-52.0); Hemoglobin 14.7 g/dL (14.0-18.0); Immature Granulocyte Absolute 0.04 K/mm3 (0.00-0.031); Immature Granulocyte Percent A 0.5 % (0-0.5); Lymphocytes Absolute Auto 1.69 K/mm3 (0.9-3.2); Lymphocytes Percent Auto 21.4 % (18.3-44.2); Mean Corpuscular HGB Conc 32.4 g/dl (32-36); Mean Corpuscular Hemoglobin 31.3 pg (26-34); Mean Corpuscular Volume 96.6 fl (80-100); Mean Platelet Volume 10.9 fl (7.4-10.4); Monocytes Absolute Auto 0.7 K/mm3 (0.1-0.6); Monocytes Percent Auto 8.7 % (2.6-8.5); Neutrophils Absolute Auto 5.4 K/mm3 (1.3-6.7); Neutrophils Percent Auto 68.2 % (45.5-73.1); Platelet Count Result 159 k/mm3 (150-375); Red Cell Distribution Width 13.9 % (11.5-14.5); White Blood Count 7.9 K/mm3 (4.5-10.0)
[2021-10-20 06:23] LABS: Alanine Aminotransferase 208 U/L (6-50); Albumin Level 4.1 g/dL (3.5-5.1); Alkaline Phosphatase 64 U/L (38-126); Anion Gap 8 mmol/L (8-16); Aspartate Amino Transferase 354 U/L (17-59); Bilirubin,Total 1.5 mg/dL (0.2-1.3); Blood Urea Nitrogen 23 mg/dL (9-20); Calcium 8.5 mg/dL (8.4-10.2); Carbon Dioxide 23 mmol/L (22-30); Chloride 107 mmol/L (98-107); Estimated CRCL calculation 102 ml/min; Estimated Glomerular Filt Rate > 60; Glucose 128 mg/dL (65-110); Phosphorus 3.5 mg/dL (2.5-4.5); Sodium 138 mmol/L (137-145)
[2021-10-20 06:31] LABS: Lactic Acid Reflex 1.5 mmol/L (0.7-2.0)
--- NOTE | 2021-10-20 08:16 | WPDINTPN ---
Progress Note: A&P Assessment and Plan (1) Hypotension: Code(s): I95.9 - Hypotension, unspecified Status: Acute Assessment and Plan: 10/19/2021: Patient was transferred to the ICU as he was found to be hypotensive and bradycardic after he received metoprolol, Lasix and Entresto on the afternoon of 10/19/2021, on the medical floor, shortly after which he became symptomatic. -patient was given IV fluids and albumin -PICC line was inserted on 10/19/2021 -patient DID NOT REQUIRE vasopressors -blood pressures have improved -continue to monitor blood pressures closely -lactic acid was within normal limits (2) Cardiomyopathy: Code(s): I42.9 - Cardiomyopathy, unspecified Status: Acute Assessment and Plan: New onset cardiomyopathy, could be related to hypertension alcoholic, ischemic -cardiology following the patient -will currently hold metoprolol, Entresto and Lasix -once the blood pressures improve will introduce these medications gradually, cardiology managing 10/18/21: Echocardiogram showed severe cardiomyopathy with EF of 25-30%, reduces RV systolic function, says left atrial dimension is severely enlarged, right atrial dimension is severely enlarged. (3) Atrial flutter: Code(s): I48.92 - Unspecified atrial flutter Status: Acute Assessment and Plan: New onset atrial fibrillation/flutter, currently rate controlled. -patient on rivaroxaban and will continue (4) Obstructive sleep apnea: Code(s): G47.33 - Obstructive sleep apnea (adult) (pediatric) Status: Acute Assessment and Plan: Patient has a history of obstructive sleep apnea and uses CPAP at home which we will continue (5) Heart failure: Code(s): I50.9 - Heart failure, unspecified Status: Acute Assessment and Plan: Continue management per Cardiology, currently holding all meds due to hypotension -BNP was 3870 -patient may require cardiac catheterization at some point during this admission to rule out ischemia (6) Elevated LFTs: Code(s): R79.89 - Other specified abnormal findings of blood chemistry Status: Acute Assessment and Plan: Elevated LFTs likely related to hypotension, could be also related to vascular congestion, patient also drinks heavily on the weekends -will obtain right upper quadrant ultrasound and hepatitis panel (7) DVT prophylaxis: Code(s): Z29.9 - Encounter for prophylactic measures, unspecified Status: Acute Assessment and Plan: Continue rivaroxaban Plan Nutrition continue heart healthy diet -obtain right upper quadrant ultrasound and hepatitis panel -hold all antihypertensives and diuretics -CPAP at night and while sleeping during the day -Accu-Cheks with low-dose sliding scale Additional Plan Discuss with patient and his spouse and updated them with patient's condition and plan of care. I answered all questions Discussed with cardiology and hospitalist Code status: full code Critical care time spent: 34 minutes This dictation may have been done utilizing a voice recognition system. Attempts have been made to correct errors. However, there may be uncorrected grammatical, spelling, and recognition errors present. Due to a high probability of clinically significant, life threatening deterioration, the patient required my highest level of preparedness to intervene emergently and I personally spent this critical care time directly and personally managing the patient. This critical care time included obtaining a history; examining the patient; pulse oximetry; ordering and review of studies; arranging urgent treatment with development of a management plan; evaluation of patient's response to treatment; frequent reassessment; and discussions with other providers. It was exclusive of separately billable procedures and treating other patients and teaching time. Please see Assessment and Plan section and the rest of the note for kirstie
[2021-10-20] MEDS: ENOXAPARIN 80 MG/0.8 ML SYRINGE SUB-Q ×2 (08:30→21:00)
[2021-10-20] MEDS: BENZONATATE 100 MG CAPSULE PO ×2 (08:30→20:59)
[2021-10-20] MEDS: guaiFENesin 12 HR 600 MG TABCR PO ×2 (08:31→20:59)
[2021-10-20] MEDS: ENOXAPARIN 60 MG/0.6 ML SYRINGE 55 MG SUB-Q ×2 (08:31→21:00)
[2021-10-20 08:39] LABS: Glucose Point of Care 109 mg/dl (65-105)
[2021-10-20 09:10] LABS: Hepatitis B Surface Antigen Negative (Negative)
[2021-10-20 09:16] LABS: HAV RESULT Negative (Negative); Hepatitis B Core IgM Result Negative (Negative)
[2021-10-20 09:27] LABS: Hepatitis C Virus Antibody Negative (Negative)
[2021-10-20 12:25] LABS: Glucose Point of Care 92 mg/dl (65-105)
--- NOTE | 2021-10-20 12:30 | PM.PNCARD ---
Progress Note: A&P Assessment and Plan (1) Cardiomyopathy: Code(s): I42.9 - Cardiomyopathy, unspecified Status: Acute Assessment and Plan: Newly diagnosis of cardiomyopathy with acute systolic CHF. Echocardiogram yesterday showing severely reduced systolic function with an ejection fraction of 25-30%. Probably nonischemic in etiology , may be a tachycardia related cardiomyopathy. He had problems with hypotension when started on guideline directed therapy; will have to go a little slower. Recommendations are as follows: Coronary angiography to rule out ischemic etiology, schedule for Friday Will start him on guideline directed medical therapy for HFrEF Will start beta gail in the form of metoprolol tartrate 12.5mg b.i.d as he has paroxysmal atrial flutter and is tachycardic at times Observe BP tolerance to these then will consider adding BARRY-inhibitor/ Entresto, andspironolactone Add SGLT2 inhibitor when volume status is stable Diuresis with furosemide 40mg po b.i.d. for now LifeVest Order has been placed Monitor renal function and electrolytes with daily BMP Closely monitor BP with initiation of new medications (2) Atrial flutter: Code(s): I48.92 - Unspecified atrial flutter Status: Acute Assessment and Plan: Paroxysmal versus persistent. Chronicity unknown. Will pursue rate control strategy with low-dose metoprolol as above. He does have a [id number] score of 2 (LV dysfunction, HTN). Systemic anticoagulation is indicated. Will start him on Xarelto 20mg daily. This will need to be held for 48 hours prior to LHC if cath is to be done during this admission. (3) Heart failure: Qualifiers: Heart failure type: systolic Heart failure chronicity: acute Qualified Code(s): I50.21 - Acute systolic (congestive) heart failure Code(s): I50.9 - Heart failure, unspecified Status: Acute Assessment and Plan: Medical management as above Daily weights KAILA hose accurate intake and output CHF counseling Dietary c/s for low sodium diet (4) Hypertension: Code(s): I10 - Essential (primary) hypertension Status: Acute Assessment and Plan: Currently at goal (5) Elevated liver enzymes: Code(s): R74.8 - Abnormal levels of other serum enzymes Status: Acute Assessment and Plan: Possibly degree of shock liver on and hepatic congestion, will recheck tomorrow. (6) Hypotension: Code(s): I95.9 - Hypotension, unspecified Status: Acute Assessment and Plan: Transient hypotension and bradycardic, probably due to CHF medications which have been held. Will reintroduce more gradually. Subjective Date/time seen: 10/20/21 12:30 Interval history: HPI: This 55-year-old gentleman with past medical history of hypertension, obstructive sleep apnea with use of home CPAP, obesity presents to the emergency room with complaints of having a cough for the past 1 and half months along with dyspnea that is worse with exertion.? On presentation to the emergency room he was found to be edematous in the bilateral lower extremities pitting 1 to 2+.? ? He was found to have new onset of CHF with an ejection fraction of 25-30%, and also a flutter RVR on admission. 10/19/2021 feels well. Denies any new complaints today. Shortness of breath on exertion and also has heaviness in his epigastric area along with heaviness in neck with exertion ongoing for several months. Yesterday patient became hypotensive and bradycardic and was transferred to the unit. Thought to be secondary to medications and resolved with a little IV fluids but without pressor therapy. Date of service 10/20/2021: Doing well overnight. Blood pressure 103-133 over 59-102. Furosemide, Entresto and metoprolol remain on hold. liver enzymes are up today. Renal function stable. telemetry shows atrial flutter rate 116. Review of [employer]
--- NOTE | 2021-10-20 17:01 | PM.IMPN ---
Progress Note: A&P Assessment and Plan (1) Dyspnea: Code(s): R06.00 - Dyspnea, unspecified Status: Acute Assessment and Plan: -likely secondary to new onset congestive heart failure as evidenced by physical exam with 1+ pitting edema to the bilateral lower extremities, chest x-ray results, elevated BNP, and rales present to the left lower lobe of the lung on auscultation. -Cardiology consulted -telemetry -echocardiogram 10/18/2021 EF 25-30% severely enlarged left atrium and right atrium right ventricular systolic function reduced [id number] TR mild MR -repeat EKG secondary to the original showing atrial flutter and not matching what is shown on telemetry in the ER. -continue diuresis with 40 mg Lasix IV b.i.d. -daily weight -accurate I&O -trend labs and vital signs. -serial troponin has been negative - Cardiac diet (2) Cough: Code(s): R05.9 - Cough, unspecified Status: Inactive Assessment and Plan: -low suspicion for any acute infectious process as new onset heart failure is most likely the causative factor. However, patient's chest x-ray did show a possible pneumonia present versus atelectasis. Started on Rocephin 1 g IV daily as well as Zithromax 500 mg daily for possible pneumonia -consider repeat chest x-ray in 2-3 days to re-evaluate. -follow labs and vitals -continue guaifenesin (3) Hypertension: Code(s): I10 - Essential (primary) hypertension Status: Acute Assessment and Plan: -monitor vital signs. -continue home dose of amlodipine 5 mg p.o. daily. Metoprolol and Entresto started With low ejection fraction may discontinue amlodipine He did present with non optimal hypertension (4) Cardiac arrhythmia: Code(s): I49.9 - Cardiac arrhythmia, unspecified Status: Acute Assessment and Plan: - Etiology likely secondary to new onset heart failure and heart strain. - Serial troponin negative -telemetry -patient given metoprolol 5 mg IV push in ER. Metoprolol oral started - Monitor labs and VS. - Consult Cardiology. -magnesium replacement (5) Heart failure: Qualifiers: Heart failure chronicity: acute Heart failure type: systolic Qualified Code(s): I50.21 - Acute systolic (congestive) heart failure Code(s): I50.9 - Heart failure, unspecified Status: Acute (6) Cardiomyopathy: Code(s): I42.9 - Cardiomyopathy, unspecified Status: Acute Assessment and Plan: Low ejection fraction Ischemic evaluation planned for Friday morning Apnea link test night Needs LifeVest at discharge (7) Atrial flutter: Code(s): I48.92 - Unspecified atrial flutter Status: Acute Assessment and Plan: EKG reviewed atrial flutter with RVR. started on Xarelto (8) Obstructive sleep apnea: Code(s): G47.33 - Obstructive sleep apnea (adult) (pediatric) Status: Acute Assessment and Plan: On CPAP uses religiously since more than 10 years Will check ApneaLink tonight with CPAP on (9) Hypotension: Code(s): I95.9 - Hypotension, unspecified Status: Acute Assessment and Plan: 10/19/2021:? Patient was transferred to the ICU as he was found to be hypotensive and bradycardic after he received metoprolol, Lasix and Entresto on the afternoon of 10/19/2021, on the medical floor,? shortly after which he became symptomatic. -patient was given IV fluids and albumin -PICC line was inserted on 10/19/2021 -patient DID NOT REQUIRE vasopressors -blood pressures have improved -continue to monitor blood pressures closely -lactic acid was within normal limits Medication has been adjusted now (10) Elevated liver enzymes: Code(s): R74.8 - Abnormal levels of other serum enzymes Status: Acute Assessment and Plan: noted this morning. Likely due to hypotension right upper quadrant ultrasoundSuggest findings of cirrhosis with portal hypertension Likely related to CHRISTOPHER which is
[2021-10-20] MEDS: FUROSEMIDE 40 MG TABLET PO (17:07)
[2021-10-20] MEDS: METOPROLOL TARTRATE 12.5 MG TABLET PO (20:59)
[2021-10-21] VITALS (19 sets, daily range): BP systolic 91–146; BP diastolic 78–97; PULSE 75–117; RESP 20–27; TEMP 36.4–36.9; O2SAT 96–99
[2021-10-21] MEDS: guaiFENesin/CODEINE (*CRX) 200/20 MG 10 ML SYRUP PO ×3 (01:26→12:38)
[2021-10-21] MEDS: ACETAMINOPHEN 325 MG TABLET 650 MG PO ×2 (05:47→14:27)
[2021-10-21] MEDS: CENTRAL LINE FLUSH 10 ML IV PUSH ×3 (05:48→20:46)
[2021-10-21 06:12] LABS: Basophils Absolute Auto 0.1 K/mm3 (0.0-0.1); Basophils Percent Auto 0.6 % (0.2-1.2); Eosinophils Absolute Auto 0.1 K/mm3 (0-0.3); Eosinophils Percent Auto 1.5 % (0-4.4); Hematocrit 45.5 % (42.0-52.0); Hemoglobin 14.2 g/dL (14.0-18.0); Immature Granulocyte Absolute 0.03 K/mm3 (0.00-0.031); Immature Granulocyte Percent A 0.4 % (0-0.5); Immature Platelet Fraction Pct 6.3 % (0.9-11.2); Lymphocytes Absolute Auto 1.64 K/mm3 (0.9-3.2); Lymphocytes Percent Auto 21.1 % (18.3-44.2); Mean Corpuscular HGB Conc 31.2 g/dl (32-36); Mean Corpuscular Hemoglobin 30.6 pg (26-34); Mean Corpuscular Volume 98.1 fl (80-100); Mean Platelet Volume 10.8 fl (7.4-10.4); Monocytes Percent Auto 12.6 % (2.6-8.5); Neutrophils Percent Auto 63.8 % (45.5-73.1); Platelet Count Result 138 k/mm3 (150-375); Red Blood Count 4.64 M/mm3 (4.6-6.20); Red Cell Distribution Width 14.1 % (11.5-14.5); White Blood Count 7.8 K/mm3 (4.5-10.0)
[2021-10-21 06:13] LABS: Alanine Aminotransferase 385 U/L (6-50); Albumin Level 4.3 g/dL (3.5-5.1); Alkaline Phosphatase 65 U/L (38-126); Anion Gap 6 mmol/L (8-16); Aspartate Amino Transferase 481 U/L (17-59); Bilirubin,Total 1.9 mg/dL (0.2-1.3); Blood Urea Nitrogen 18 mg/dL (9-20); Calcium 8.8 mg/dL (8.4-10.2); Carbon Dioxide 25 mmol/L (22-30); Chloride 106 mmol/L (98-107); Estimated CRCL calculation 137 ml/min; Estimated Glomerular Filt Rate > 60; Glucose 95 mg/dL (65-110); Potassium 4.2 mmol/L (3.4-5.0); Sodium 137 mmol/L (137-145)
[2021-10-21] MEDS: ENOXAPARIN 80 MG/0.8 ML SYRINGE SUB-Q ×2 (08:18→20:45)
[2021-10-21] MEDS: ENOXAPARIN 60 MG/0.6 ML SYRINGE 55 MG SUB-Q ×2 (08:18→20:44)
[2021-10-21] MEDS: FUROSEMIDE 40 MG TABLET PO ×2 (08:19→17:12)
[2021-10-21] MEDS: guaiFENesin 12 HR 600 MG TABCR PO ×2 (08:19→20:45)
[2021-10-21] MEDS: BENZONATATE 100 MG CAPSULE PO ×2 (08:19→20:45)
[2021-10-21] MEDS: METOPROLOL TARTRATE 12.5 MG TABLET PO ×2 (08:19→20:45)
[2021-10-21] MEDS: SODIUM CHLORIDE 0.9% IV 250 ML 999 ML IV CONT (14:28)
--- NOTE | 2021-10-21 15:01 | PM.IMPN ---
Progress Note: A&P Assessment and Plan (1) Dyspnea: Code(s): R06.00 - Dyspnea, unspecified Status: Acute Assessment and Plan: -likely secondary to new onset congestive heart failure as evidenced by physical exam with 1+ pitting edema to the bilateral lower extremities, chest x-ray results, elevated BNP, and rales present to the left lower lobe of the lung on auscultation. -Cardiology consulted -telemetry -echocardiogram 10/18/2021 EF 25-30% severely enlarged left atrium and right atrium right ventricular systolic function reduced [id number] TR mild MR -repeat EKG secondary to the original showing atrial flutter and not matching what is shown on telemetry in the ER. -continue diuresis with 40 mg Lasix IV b.i.d. -daily weight -accurate I&O -trend labs and vital signs. -serial troponin has been negative - Cardiac diet Repeat chest x-ray today. he is currently on Lasix 40 mg p.o. b.i.d.. Further dosing of Lasix per Cardiology (2) Cough: Code(s): R05.9 - Cough, unspecified Status: Inactive Assessment and Plan: -low suspicion for any acute infectious process as new onset heart failure is most likely the causative factor. However, patient's chest x-ray did show a possible pneumonia present versus atelectasis. Started on Rocephin 1 g IV daily as well as Zithromax 500 mg daily for possible pneumonia -follow labs and vitals -continue guaifenesin (3) Hypertension: Code(s): I10 - Essential (primary) hypertension Status: Acute Assessment and Plan: -monitor vital signs. -continue home dose of amlodipine 5 mg p.o. daily. Metoprolol and Entresto started With low ejection fraction may discontinue amlodipine He did present with non optimal hypertension (4) Cardiac arrhythmia: Code(s): I49.9 - Cardiac arrhythmia, unspecified Status: Acute Assessment and Plan: - Etiology likely secondary to new onset heart failure and heart strain. - Serial troponin negative -telemetry -patient given metoprolol 5 mg IV push in ER. Metoprolol oral started - Monitor labs and VS. - Consult Cardiology. -magnesium replacement On metoprolol oral. Heart rate is improved (5) Heart failure: Qualifiers: Heart failure chronicity: acute Heart failure type: systolic Qualified Code(s): I50.21 - Acute systolic (congestive) heart failure Code(s): I50.9 - Heart failure, unspecified Status: Acute (6) Cardiomyopathy: Code(s): I42.9 - Cardiomyopathy, unspecified Status: Acute Assessment and Plan: Low ejection fraction Ischemic evaluation planned for Friday morning Apnea link test night Needs LifeVest at discharge (7) Atrial flutter: Code(s): I48.92 - Unspecified atrial flutter Status: Acute Assessment and Plan: EKG reviewed atrial flutter with RVR. started on Lovenox is on hold for the planned procedure (8) Obstructive sleep apnea: Code(s): G47.33 - Obstructive sleep apnea (adult) (pediatric) Status: Acute Assessment and Plan: On CPAP uses religiously since more than 10 years Will check ApneaLink tonight with CPAP on (9) Hypotension: Code(s): I95.9 - Hypotension, unspecified Status: Acute Assessment and Plan: 10/19/2021:? Patient was transferred to the ICU as he was found to be hypotensive and bradycardic after he received metoprolol, Lasix and Entresto on the afternoon of 10/19/2021, on the medical floor,? shortly after which he became symptomatic. -patient was given IV fluids and albumin -PICC line was inserted on 10/19/2021 -patient DID NOT REQUIRE vasopressors -blood pressures have improved -continue to monitor blood pressures closely -lactic acid was within normal limits Medication has been adjusted now (10) Elevated liver enzymes: Code(s): R74.8 - Abnormal levels of other serum enzymes Status: Acute Assessment and Plan: noted this morning. Likely due
--- NOTE | 2021-10-21 16:11 | PM.PNCARD ---
Progress Note: A&P Assessment and Plan (1) Cardiomyopathy: Code(s): I42.9 - Cardiomyopathy, unspecified Status: Acute Assessment and Plan: Newly diagnosis of cardiomyopathy with acute systolic CHF. Echo EF 25-30%. Probably nonischemic in etiology , may be a tachycardia related cardiomyopathy. He had recurrent problems with hypotension when started on guideline directed therapy; will have to go a little slower. Will start him on guideline directed medical therapy for HFrEF continue metoprolol tartrate 12.5mg b.i.d as he has paroxysmal atrial flutter and is tachycardic at times Add dobutamine 2.5 mics and observe response, titrate upwards if this does not cause hypotension or tachycardia Later add BARRY-inhibitor/ Entresto, and spironolactone Add SGLT2 inhibitor when volume status is stable Diuresis with furosemide 40mg po b.i.d. for now Coronary angiography to rule out ischemic etiology, schedule for Friday, if able to lie supine LifeVest Order has been placed Monitor renal function and electrolytes with daily BMP Closely monitor BP with initiation of new medications (2) Atrial flutter: Code(s): I48.92 - Unspecified atrial flutter Status: Acute Assessment and Plan: Paroxysmal versus persistent. Chronicity unknown. Will pursue rate control strategy with low-dose metoprolol as above. He does have a [id number] score of 2 (LV dysfunction, HTN). Systemic anticoagulation is indicated. currently getting Lovenox In anticipation of a cardiac catheterization, will switch to Xarelto prior to discharge. (3) Hypotension: Code(s): I95.9 - Hypotension, unspecified Status: Acute Assessment and Plan: Episodic hypotension thought to be secondary to medications. Does not look intravascularly dry however. (4) Heart failure: Qualifiers: Heart failure chronicity: acute Heart failure type: systolic Qualified Code(s): I50.21 - Acute systolic (congestive) heart failure Code(s): I50.9 - Heart failure, unspecified Status: Acute Assessment and Plan: Acute systolic heart failure due to new cardiomyopathy treatment as above (5) Hypertension: Code(s): I10 - Essential (primary) hypertension Status: Acute Assessment and Plan: Currently at goal (6) Elevated liver enzymes: Code(s): R74.8 - Abnormal levels of other serum enzymes Status: Acute Assessment and Plan: Abdominal ultrasound suggests cirrhosis, possibly from CHRISTOPHER. Probably aggravated by a degree of shock liver on and hepatic congestion. (7) Cough: Code(s): R05.9 - Cough, unspecified Status: Acute Assessment and Plan: Thought to be due to heart failure but there may be on underlying pneumonia as well. Started on Rocephin Subjective Date/time seen: 10/21/21 16:11: HPI: This 55-year-old gentleman with past medical history of hypertension, obstructive sleep apnea with use of home CPAP, obesity presents to the emergency room with complaints of having a cough for the past 1 and half months along with dyspnea that is worse with exertion.?? On presentation to the emergency room he was found to be edematous in the bilateral lower extremities pitting 1 to 2+.? ?? He was found to have new onset of CHF with an ejection fraction of 25-30%, and also a flutter RVR on admission. 10/19/2021 feels well.? Denies any new complaints today.? Shortness of breath on exertion and also has heaviness in his epigastric area along with heaviness in neck with exertion ongoing for several months.? ? Yesterday patient became hypotensive and bradycardic and was transferred to the unit.? Thought to be secondary to medications and resolved with a little IV fluids but without pressor therapy.? Date of service 10/20/2021: Doing well overnight.? Blood pressure 103-133 over 59-102.? Furosemide, Entresto and metoprolol remain on hold.
[2021-10-21] MEDS: DOBUTamine 250 MG/D5W 250 ML 250 MG/250 ML BAG 20.9 MG IV CONT (17:08)
[2021-10-21 20:49] LABS: Appearance Urine Clear (Clear); Bilirubin Urine 1+ (Negative); Blood Urine Negative (Negative); Color Urine Yellow (Yellow); Glucose Urine UA Trace mg/dL (Negative); Ketones Urine Negative (Negative); Leukocyte Esterase Ur Negative LEU/UL (NEGATIVE); Nitrate Urine Negative (Negative); Protein Urine 2+ mg/dL (Negative); Specific Grav Ur >= 1.030 (1.001-1.035)
[2021-10-21 20:54] LABS: Bacteria Urine Trace /hpf; Mucus Urine Moderate /lpf; RBC Urine 0-2 /hpf (0-2); WBC Urine 0-3 /hpf (0-3)
[2021-10-21 20:56] LABS: Add Urine Microscopic? YES
[2021-10-22] VITALS (29 sets, daily range): BP systolic 102–137; BP diastolic 66–102; PULSE 62–119; RESP 16–24; TEMP 36.2–37.4; O2SAT 93–100
[2021-10-22] MEDS: DOBUTamine 250 MG/D5W 250 ML 250 MG/250 ML BAG 20.9 MG IV CONT ×2 (02:43→14:00)
[2021-10-22] MEDS: CENTRAL LINE FLUSH 10 ML IV PUSH ×3 (05:24→20:20)
[2021-10-22 05:33] LABS: Basophils Percent Auto 0.5 % (0.2-1.2); Eosinophils Absolute Auto 0.1 K/mm3 (0-0.3); Hematocrit 41.9 % (42.0-52.0); Hemoglobin 13.3 g/dL (14.0-18.0); Immature Granulocyte Absolute 0.03 K/mm3 (0.00-0.031); Immature Granulocyte Percent A 0.5 % (0-0.5); Immature Platelet Fraction Pct 5.6 % (0.9-11.2); Lymphocytes Absolute Auto 1.58 K/mm3 (0.9-3.2); Lymphocytes Percent Auto 23.9 % (18.3-44.2); Mean Corpuscular HGB Conc 31.7 g/dl (32-36); Mean Corpuscular Hemoglobin 30.6 pg (26-34); Mean Corpuscular Volume 96.5 fl (80-100); Mean Platelet Volume 11.1 fl (7.4-10.4); Monocytes Absolute Auto 0.9 K/mm3 (0.1-0.6); Monocytes Percent Auto 13.5 % (2.6-8.5); Neutrophils Absolute Auto 3.9 K/mm3 (1.3-6.7); Neutrophils Percent Auto 59.6 % (45.5-73.1); Platelet Count Result 110 k/mm3 (150-375); Red Blood Count 4.34 M/mm3 (4.6-6.20); White Blood Count 6.6 K/mm3 (4.5-10.0)
[2021-10-22 08:17] LABS: Alanine Aminotransferase 445 U/L (6-50); Albumin Level 4.1 g/dL (3.5-5.1); Alkaline Phosphatase 70 U/L (38-126); Anion Gap 9 mmol/L (8-16); Aspartate Amino Transferase 334 U/L (17-59); Bilirubin,Total 1.9 mg/dL (0.2-1.3); Blood Urea Nitrogen 15 mg/dL (9-20); Calcium 8.5 mg/dL (8.4-10.2); Carbon Dioxide 21 mmol/L (22-30); Chloride 105 mmol/L (98-107); Estimated CRCL calculation 122 ml/min; Estimated Glomerular Filt Rate > 60; Glucose 97 mg/dL (65-110); Magnesium 1.9 mg/dL (1.6-2.3); Potassium 3.4 mmol/L (3.4-5.0); Sodium 135 mmol/L (137-145)
[2021-10-22] MEDS: METOPROLOL TARTRATE 12.5 MG TABLET PO ×2 (09:24→20:19)
[2021-10-22] MEDS: guaiFENesin 12 HR 600 MG TABCR PO ×2 (09:24→20:19)
[2021-10-22] MEDS: BENZONATATE 100 MG CAPSULE PO ×2 (09:24→20:19)
[2021-10-22] MEDS: FUROSEMIDE 40 MG TABLET PO ×2 (09:24→18:47)
--- NOTE | 2021-10-22 13:17 | PM.IMPN ---
Progress Note: A&P Assessment and Plan (1) Dyspnea: Code(s): R06.00 - Dyspnea, unspecified Status: Acute Assessment and Plan: -likely secondary to new onset congestive heart failure as evidenced by physical exam with 1+ pitting edema to the bilateral lower extremities, chest x-ray results, elevated BNP, and rales present to the left lower lobe of the lung on auscultation. -Cardiology consulted -telemetry -echocardiogram 10/18/2021 EF 25-30% severely enlarged left atrium and right atrium right ventricular systolic function reduced [id number] TR mild MR -repeat EKG secondary to the original showing atrial flutter and not matching what is shown on telemetry in the ER. -continue diuresis with 40 mg Lasix IV b.i.d. -daily weight -accurate I&O -trend labs and vital signs. -serial troponin has been negative - Cardiac diet Repeat chest x-ray with persistent congestion but stable. He is currently on Lasix 40 mg p.o. b.i.d.. Further dosing of Lasix per Cardiology Started on dobutamine infusion by bulldozer mechanic 10/21/2021 plan to add Entresto/spironolactone/Scl T2 inhibitor as tolerated (2) Cough: Code(s): R05.9 - Cough, unspecified Status: Inactive Assessment and Plan: -low suspicion for any acute infectious process as new onset heart failure is most likely the causative factor. However, patient's chest x-ray did show a possible pneumonia present versus atelectasis. Started on Rocephin 1 g IV daily as well as Zithromax 500 mg daily for possible pneumonia -follow labs and vitals -continue guaifenesin (3) Hypertension: Code(s): I10 - Essential (primary) hypertension Status: Acute Assessment and Plan: -monitor vital signs. -continue home dose of amlodipine 5 mg p.o. daily. Metoprolol and Entresto started but now currently on hold Metoprolol restarted on small dose With low ejection fraction may discontinue amlodipine He did present with non optimal hypertension (4) Cardiac arrhythmia: Code(s): I49.9 - Cardiac arrhythmia, unspecified Status: Acute Assessment and Plan: - Etiology likely secondary to new onset heart failure and heart strain. - Serial troponin negative -telemetry -patient given metoprolol 5 mg IV push in ER. Metoprolol oral started - Monitor labs and VS. - Consult Cardiology. -magnesium replacement On metoprolol oral. Heart rate is improved (5) Heart failure: Qualifiers: Heart failure chronicity: acute Heart failure type: systolic Qualified Code(s): I50.21 - Acute systolic (congestive) heart failure Code(s): I50.9 - Heart failure, unspecified Status: Acute (6) Cardiomyopathy: Code(s): I42.9 - Cardiomyopathy, unspecified Status: Acute Assessment and Plan: Low ejection fraction Ischemic evaluation planned for Friday morning Apnea link test night Needs LifeVest at discharge (7) Atrial flutter: Code(s): I48.92 - Unspecified atrial flutter Status: Acute Assessment and Plan: EKG reviewed atrial flutter with RVR. started on Lovenox is on hold for the planned procedure Plan for Xarelto eventually (8) Obstructive sleep apnea: Code(s): G47.33 - Obstructive sleep apnea (adult) (pediatric) Status: Acute Assessment and Plan: On CPAP uses religiously since more than 10 years (9) Hypotension: Code(s): I95.9 - Hypotension, unspecified Status: Acute Assessment and Plan: 10/19/2021:? Patient was transferred to the ICU as he was found to be hypotensive and bradycardic after he received metoprolol, Lasix and Entresto on the afternoon of 10/19/2021, on the medical floor,? shortly after which he became symptomatic. -patient was given IV fluids and albumin -PICC line was inserted on 10/19/2021 -patient DID NOT REQUIRE vasopressors -blood pressures have improved -continue to monitor blood pressures closely -lactic acid was within normal limits Medic
--- NOTE | 2021-10-22 14:16 | WPDHPUPDATE1 ---
History and Physical Update Update Date/Time: 10/22/21 14:16 History and Physical has been reviewed, including an updated exam of the patient. There are NO changes in the patient's condition. Risks, benefits, and alternatives have been discussed and questions answered. Patient agrees to proceed with procedure.
--- NOTE | 2021-10-22 14:16 | WPDMODSED ---
Moderate Sedation Note-Pt Data Patient Data Allergies Allergy/AdvReac Type Severity Reaction Status Date / Time No Known Allergies Allergy Verified 10/18/21 08:46 Home Medications Medication Instructions Recorded Confirmed Type amlodipine 5 mg tablet (Norvasc) 5 mg PO DAILY 08/13/20 10/18/21 History Saccharomyces boulardii 250 mg 250 mg PO DAILY 10/18/21 10/18/21 History capsule (Florastor) celecoxib 200 mg capsule 200 mg PO DAILY 10/18/21 10/19/21 History ibuprofen 600 mg tablet 600 mg PO Q6H PRN Pain 10/18/21 10/18/21 History naltrexone 8 mg-bupropion 90 mg 2 tablet PO DAILY 10/18/21 10/18/21 History tablet,extended release (Contrave) tadalafil 5 mg tablet 5 mg PO DAILY 10/18/21 10/18/21 History Current Medications: Active Medications Acetaminophen (Acetaminophen 325 Mg Tablet) 650 mg PO Q6H PRN PRN Reason: Mild Pain (1-3) or Fever Last Admin: 10/21/21 14:27 Dose: 650 mg Benzonatate (Benzonatate 100 Mg Capsule) 100 mg PO Q12HR [facility] Last Admin: 10/22/21 09:24 Dose: 100 mg Enoxaparin Sodium (Enoxaparin 80 Mg/0.8 Ml Syringe) 80 mg SUB-Q Q12HR [facility] Last Admin: 10/22/21 09:12 Dose: Not Given Enoxaparin Sodium (Enoxaparin 60 Mg/0.6 Ml Syringe) 55 mg SUB-Q Q12HR [facility] Last Admin: 10/22/21 09:12 Dose: Not Given Furosemide (Furosemide 40 Mg Tablet) 40 mg PO BID [facility] Last Admin: 10/22/21 09:24 Dose: 40 mg Guaifenesin (Guaifenesin 12 Hr 600 Mg Tabcr) 600 mg PO Q12HR [facility] Last Admin: 10/22/21 09:24 Dose: 600 mg Guaifenesin/Codeine Phosphate (Guaifenesin/Codeine (*Crx) 200/20 Mg 10 Ml Syrup) 10 ml PO Q4HR PRN PRN Reason: Cough Last Admin: 10/21/21 12:38 Dose: 10 ml Ceftriaxone Sodium/Dextrose (Rocephin 1 Gm/D5w 50 Ml) 1 gm in 50 mls @ 100 mls/hr IVPB NOON [facility] Last Admin: 10/22/21 12:37 Dose: 100 mls/hr Azithromycin (Zithromax) 500 mg in 250 mls @ 250 mls/hr IVPB NOON [facility] Last Admin: 10/22/21 12:28 Dose: 250 mls/hr Dobutamine HCl/Dextrose (Dobutamine 250 Mg/D5w 250 Ml) 250 mg in 250 mls @ 20.895 mls/hr IV CONT .[id number] [facility] Last Infusion: 10/22/21 05:04 Dose: 2.5 mcg/kg/min, 20.9 mls/hr Metoprolol Tartrate (Metoprolol Tartrate 12.5 Mg Tablet) 12.5 mg PO Q12HR [facility] Last Admin: 10/22/21 09:24 Dose: 12.5 mg Sacubitril/Valsartan (Sacubitril/Valsartan 24-26 Mg Tablet) 1 tab PO Q12HR [facility] Last Admin: 10/19/21 11:55 Dose: 1 tab Sodium Chloride (Central Line Flush) 10 ml IV PUSH Q8HR [facility] Last Admin: 10/22/21 12:41 Dose: 10 ml Sodium Chloride (Central Line Flush) 10 ml IV PUSH PRN PRN PRN Reason: with TPN bag changes Sodium Chloride (Central Line Flush) 20 ml IV PUSH PRN PRN PRN Reason: after blood draws Sedation/Anesthesia: No previous sedation/anesthesia problems (including family history). [facility] Past Medical History Medical History Hypertension LAVON (obstructive sleep apnea) Surgical History Surgical History H/O kyphoplasty S/P tendon repair right hand Family History Family History Other Family history non-contributory Social History Social History Smoking status: Never smoker Alcohol intake: current Substance use: never Gender identity (if verbalized by the patient): Male Spiritual care concerns: Yes Mod Sed Physical Exam Physical Exam Pre Procedural Exam: Normal: Appearance, Eyes, Ears, Nose, Neck, Throat, Airway, Lungs, Heart Size, Heart Rate, Heart Rhythm, Neuro Exam, Abdomen, Liver, Kidneys, Spleen, Breasts, Genitalia, Extremities and Skin Hours since solid foods: 8 Hours since liquid intake: 8 Mallampati Classification: class II Internal Medicine - PN: Obj Da Vital Signs Vital Signs: Vital Signs - 24 hr 10/21/21 16:00 10/21/21 16:00 10/21/21 17:08 Temperature 36.8 C Pulse Rate 89 Respiratory Rat
--- NOTE | 2021-10-22 14:17 | WPDCARDPROC ---
Cardiac Cath Procedure Note Date of procedure:: 10/22/21 Performing physician:: Laura Miller MD Indication:: A new onset cardiomyopathy Brief clinical history:: this is 56-year-old patient with morbid obesity, hypertension who presents with shortness of breath was found to have low ejection fraction. He is also in atrial flutter. Procedure Procedure performed:: 1-Moderate sedation that started at 1:56 p.m. and ended at 2:20 p.m. total duration 60 minutes using 1mg of Versed The registered nurse was cassie bishop. 2-Selective left and right coronary angiogram. 3-Left heart catheterization with measurement of LVEDP and measurement of gradient across aortic valve. 4-Right common femoral arterial angiogram. 5-Deployment of 6 Maori Angio-Seal. Sedation/Medication given:: Moderate sedation. Access site:: Right common femoral artery. Estimated blood loss:: 10cc Procedure note:: After informed consent patient was brought in to [facility] with the was draped and prepped in usual manner. Moderate sedation was given and the right groin was infiltrated using 1% lidocaine. Five Maori sheath was obtained using micropuncture needle and the modified Seldinger technique. Selective left coronary angiogram was done using JL4 catheter with the tip of the catheter placed in the left main coronary artery. Selective right coronary angiogram was done using JR4 catheter with the tip of the catheter placed to the right coronary artery. After that 5 Maori pigtail catheter was advanced across the aortic valve into the left ventricle with measurement of LVEDP and measurement of gradient across aortic valve. Right common femoral arterial angiogram was done. Findings:: 1- left coronary artery is a large artery that divides into large LAD, large circumflex artery large ramus. Left main is free of disease 2- left anterior descending artery is a large artery that runs and wraps around the apex. minimal irregularities 3- leftcircumflex artery is a large artery. the mid segment 20% . 4- ramus intermedius is a large artery with no significant disease. 4- right coronary artery is Large artery and dominant without significant disease 5- LVEDP was 25 mm Hgand no gradient across aortic valve. 6- opening arterial pressure was 91/70 and closing pressure was 107/70 7- right femoral artery angiogram shows no significant disease in the right common femoral artery. Conclusion:: nonischemic cardiomyopathy. - no significant CAD Assessment and Plan Assessment and plan (1) Atrial flutter: Code(s): I48.92 - Unspecified atrial flutter Status: Acute (2) Cardiomyopathy: Code(s): I42.9 - Cardiomyopathy, unspecified Status: Acute Plan optimize heart failure treatment.
--- NOTE | 2021-10-22 15:17 | SUR.PHASEII ---
Report given to Dayna JOHNSON
--- NOTE | 2021-10-22 15:41 | PC.NURSE ---
Patient returned from cath lad at 15:30. No distress noted, right pedal pulse +3, No bruit detected. Patient up to [id number] until 16:30. Up to chair for 1 hour 17:30.
[2021-10-22] MEDS: ENOXAPARIN 80 MG/0.8 ML SYRINGE SUB-Q (20:20)
[2021-10-22] MEDS: ENOXAPARIN 60 MG/0.6 ML SYRINGE 55 MG SUB-Q (20:20)
[2021-10-22] MEDS: guaiFENesin/CODEINE (*CRX) 200/20 MG 10 ML SYRUP PO (23:34)
[2021-10-23] VITALS (20 sets, daily range): BP systolic 85–132; BP diastolic 59–78; PULSE 61–104; RESP 16–28; TEMP 36.4–36.9; O2SAT 95–99
[2021-10-23] MEDS: DOBUTamine 250 MG/D5W 250 ML 250 MG/250 ML BAG 20.9 MG IV CONT (01:30)
[2021-10-23] MEDS: CENTRAL LINE FLUSH 10 ML IV PUSH ×3 (04:14→20:41)
[2021-10-23 04:27] LABS: Basophils Percent Auto 0.3 % (0.2-1.2); Eosinophils Absolute Auto 0.2 K/mm3 (0-0.3); Eosinophils Percent Auto 2.6 % (0-4.4); Hematocrit 42.6 % (42.0-52.0); Hemoglobin 13.5 g/dL (14.0-18.0); Immature Granulocyte Absolute 0.02 K/mm3 (0.00-0.031); Immature Granulocyte Percent A 0.3 % (0-0.5); Immature Platelet Fraction Pct 6.1 % (0.9-11.2); Lymphocytes Absolute Auto 1.42 K/mm3 (0.9-3.2); Lymphocytes Percent Auto 22.9 % (18.3-44.2); Mean Corpuscular HGB Conc 31.7 g/dl (32-36); Mean Corpuscular Hemoglobin 30.8 pg (26-34); Mean Platelet Volume 11.3 fl (7.4-10.4); Monocytes Absolute Auto 0.9 K/mm3 (0.1-0.6); Monocytes Percent Auto 13.7 % (2.6-8.5); Neutrophils Absolute Auto 3.7 K/mm3 (1.3-6.7); Neutrophils Percent Auto 60.2 % (45.5-73.1); Platelet Count Result 122 k/mm3 (150-375); Red Blood Count 4.39 M/mm3 (4.6-6.20); White Blood Count 6.2 K/mm3 (4.5-10.0)
[2021-10-23 04:51] LABS: Alanine Aminotransferase 338 U/L (6-50); Albumin Level 3.9 g/dL (3.5-5.1); Alkaline Phosphatase 66 U/L (38-126); Anion Gap 5 mmol/L (8-16); Aspartate Amino Transferase 177 U/L (17-59); Bilirubin,Total 1.6 mg/dL (0.2-1.3); Blood Urea Nitrogen 15 mg/dL (9-20); Calcium 8.2 mg/dL (8.4-10.2); Carbon Dioxide 23 mmol/L (22-30); Chloride 105 mmol/L (98-107); Estimated CRCL calculation 136 ml/min; Estimated Glomerular Filt Rate > 60; Glucose 95 mg/dL (65-110); Potassium 4.3 mmol/L (3.4-5.0); Sodium 133 mmol/L (137-145)
[2021-10-23] MEDS: METOPROLOL TARTRATE 12.5 MG TABLET PO (09:51)
[2021-10-23] MEDS: BENZONATATE 100 MG CAPSULE PO ×2 (09:51→20:41)
[2021-10-23] MEDS: FUROSEMIDE 40 MG TABLET PO ×2 (09:52→17:29)
[2021-10-23] MEDS: guaiFENesin 12 HR 600 MG TABCR PO ×2 (09:52→20:41)
--- NOTE | 2021-10-23 10:15 | PM.PNCARD ---
Progress Note: A&P Assessment and Plan (1) Heart failure with reduced ejection fraction: Code(s): I50.20 - Unspecified systolic (congestive) heart failure Status: Acute Assessment and Plan: Patient has CHF with reduced ejection fraction-nonischemic cardiomyopathy. Cardiac catheterization did not show significant obstructive CAD. Will wean off dobutamine. Continue low-dose beta-gail for now. May eventually switch to carvedilol or metoprolol succinate. Initiate SGLT2 inhibitor. Other standard medications for CHF with reduced ejection fraction including ARNI, aldosterone antagonist when able. (2) Nonischemic cardiomyopathy: Code(s): I42.8 - Other cardiomyopathies Status: Acute Assessment and Plan: See above (3) Atrial flutter: Code(s): I48.92 - Unspecified atrial flutter Status: Acute Assessment and Plan: Patient has atrial flutter/fibrillation with underlying severe LV systolic dysfunction. Yazidi of sinus rhythm would be appropriate. Switch low-molecular weight heparin to rivaroxaban. After discussing benefits and risks with the patient, he is willing to proceed with CHI guided DC cardioversion. Life vest at discharge. Need for referral to EP to be determined as an outpatient. Plan Discussed with primary team. Subjective Date/time seen: 10/23/21 10:15 Interval history: Date of service 10/23/2021 Interval history: Patient had cardiac catheterization done yesterday which do not show significant obstructive CAD. Echo from 10/18/2021 showed 25-30%; and RV dysfunction. Patient reports improvement in his shortness of breath and lower extremity swelling. No chest pain. On telemetry, patient is in atrial fibrillation/flutter. Is currently on dobutamine. Exam Narrative: PHYSICAL EXAMINATION: GENERAL: Well-built male, sitting upright in the chair, oriented, no acute distress MENTAL STATUS: affect appropriate to mood EYES: Extraocular movements intact, no pallor EARS: External ears appear normal, hearing grossly normal NOSE: Normal and patent, no discharge MOUTH: Mucous membranes moist, tongue normal NECK: Supple, no JVD CHEST: Diminished breath sounds HEART: Normal rate, irregular rhythm ABDOMEN: Soft, nontender NEUROLOGICAL: Alert, oriented, normal speech, no gross motor deficits MUSCULOSKELETAL: No major deformity, no amputation EXTREMITIES: Pedal edema present SKIN: no rash on the exposed area, no cyanosis PSYCHIATRIC: Normal mood, appropriate affect Objective Data Vital Signs Vital Signs: Vital Signs - 24 hr 10/22/21 11:55 10/22/21 14:40 10/22/21 14:40 Temperature 36.2 C L Pulse Rate 100 86 Pulse Rate [Bilateral Pedal (Dorsalis Pedis) Palpation] 87 Respiratory Rate 22 H 22 H Blood Pressure 111/83 107/83 Pulse Oximetry 100 95 Oxygen Delivery Nasal Cannula Oxygen Flow Rate 2 10/22/21 14:55 10/22/21 14:55 10/22/21 15:10 Temperature Pulse Rate 78 86 Pulse Rate [Bilateral Pedal (Dorsalis Pedis) Palpation] 84 Respiratory Rate 22 H 21 H Blood Pressure 107/83 118/102 H Pulse Oximetry 98 95 Oxygen Delivery Nasal Cannula Nasal Cannula Oxygen Flow Rate 3 3 10/22/21 15:10 10/22/21 14:46 10/22/21 12:00 Temperature Pulse Rate 84 Pulse Rate [Bilateral Pedal (Dorsalis Pedis) Palpation] 90 Respiratory Rate Blood Pressure Pulse Oximetry 97 Oxygen Delivery Room Air Oxygen Flow Rate 10/22/21 13:30 10/22/21 12:00 10/22/21 15:25 Temperature Pulse Rate 102 H 86 Pulse Rate [Bilateral Pedal (Dorsalis Pedis) Palpation] Respiratory Rate 21 H Blood Pressure 130/86 Pulse Oximetry 97 97 Oxygen Delivery Room Air Nasal Cannula Oxygen Flow Rate 3 10/22/21 15:45 10/22/21 16:24 10/22/21 16:00 Temperature 36.8 C Pulse Rate 78 86 Pulse Rate [Bilateral Pedal (Dorsalis Pedis) Palpation] 86 Respiratory Rate 20 Blood Pressure 112/86 Pulse Oximetry 98 Oxygen De
--- NOTE | 2021-10-23 10:45 | PM.IMPN ---
Progress Note: A&P Assessment and Plan (1) Heart failure with reduced ejection fraction: Code(s): I50.20 - Unspecified systolic (congestive) heart failure Status: Acute Assessment and Plan: Donnie presents with cough and leg edema secondary to new onset CHF. BNP elevated. CXR consistent with CHF. Echo 10/18/2021 EF 25-30%, severely enlarged left atrium and right atrium, right ventricular systolic function reduced, [id number] TR, and mild MR. EKG showing AFlutter. He was diuresed but now on oral Lasix. He did require Dobutamine started by travel professional 10/21/2021 but stopped today. Entresto and Lopressor added. Continue to adjsut medications as tolerated. (2) Atrial flutter: Code(s): I48.92 - Unspecified atrial flutter Status: Acute Assessment and Plan: EKG reviewed showing atrial flutter with RVR. He was started on Lovenox but now changed to Xarelto. Continue Lopressor. Cardioversion planned for tomorrow (3) Nonischemic cardiomyopathy: Code(s): I42.8 - Other cardiomyopathies Status: Acute Assessment and Plan: Low ejection fraction at 25-30%. Ischemic evaluation showing only minimal CAD by left heart cath on 10/22/21. Apnea link test inconclusive. Will need LifeVest at discharge. Continue to adjsut medications as toerlated. (4) Elevated liver enzymes: Code(s): R74.8 - Abnormal levels of other serum enzymes Status: Acute Assessment and Plan: LFTs elevated. Right upper quadrant ultrasound suggests findings of cirrhosis with portal hypertension. Likely related to CHRISTOPHER which is a new finding for him. Hepatitis panel negative. Suspect component of hepatic congestion from the NICMP and CHF. Will to follow-up as an outpatient basis. Continue to monitor liver enzymes at least stable now. Consider adding Spirno if able to tolerate. Check some liver testing as well (5) Hypotension: Code(s): I95.9 - Hypotension, unspecified Status: Acute Assessment and Plan: Patient was transferred to the ICU as he was found to be hypotensive and bradycardic after he received metoprolol, Lasix and Entresto on the afternoon of 10/19/2021 shortly after which he became symptomatic. Patient was given IV fluids and albumin and PICC line was inserted on 10/19/2021. Patient DID NOT REQUIRE vasopressors but was started on Dobutamine later. BP improved. Medication have been adjusted now (6) Cough: Code(s): R05.9 - Cough, unspecified Status: Inactive Assessment and Plan: Chest x-ray shows atelectasis versus pneumonia in the right lower lobe. Low suspicion for any acute infectious process as new onset heart failure is most likely the causative factor. He was started on Rocephin 1 g IV daily as well as Zithromax 500 mg daily for possible pneumonia. Continue antiemetics. Given his low EF, will stop azithromycin. Repeat chest x-ray in the morning. (7) Obstructive sleep apnea: Code(s): G47.33 - Obstructive sleep apnea (adult) (pediatric) Status: Acute Assessment and Plan: On CPAP uses religiously since more than 10 years. Continue the same. Subjective Date/time seen: 10/23/21 10:45 Interval history: 56yo male with hx of HTN and LAVON here for cough and found to have NICMP and CHF. Assuming care. Chart reviewed. Patient feels well. He denies CP or SOB. Still with persistent intermittent cough that is worse with lying down and is nonproductive. Currently on Dobutamine but being stopped today. Exam Narrative: AF 98.3 114/77 94 20 97% ra Gen - NARD sittin gup in chair Chest - few basilar rhonchi o/w clear. CV - mostly regular S1/S2. Tele showing Aflutter mostly 2:1 but variable Abd - Soft, obese, NT Ext - Virgilio hose in place with 1+ pitting pedal edema Neuro - Alert and oriented. Nonfocal exam. Psych - Nml mood and affect Skin - Warm and dry Objective Data Vital Signs Vital Signs: Vital Signs - 2
[2021-10-23] MEDS: RIVAROXABAN 20 MG TABLET PO (17:29)
[2021-10-23] MEDS: guaiFENesin/CODEINE (*CRX) 200/20 MG 10 ML SYRUP PO ×2 (17:40→21:19)
[2021-10-24] VITALS (18 sets, daily range): BP systolic 102–154; BP diastolic 70–104; PULSE 70–115; RESP 16–24; TEMP 36.4–36.7; O2SAT 93–98
[2021-10-24] MEDS: guaiFENesin/CODEINE (*CRX) 200/20 MG 10 ML SYRUP PO ×3 (02:10→20:54)
[2021-10-24] MEDS: FAMOTIDINE 20 MG/2 ML VIAL IV PUSH (02:28)
[2021-10-24] MEDS: CENTRAL LINE FLUSH 10 ML IV PUSH ×3 (04:47→21:01)
[2021-10-24 05:03] LABS: Basophils Percent Auto 0.6 % (0.2-1.2); Eosinophils Absolute Auto 0.1 K/mm3 (0-0.3); Eosinophils Percent Auto 1.7 % (0-4.4); Hematocrit 43.8 % (42.0-52.0); Hemoglobin 13.8 g/dL (14.0-18.0); Immature Granulocyte Absolute 0.02 K/mm3 (0.00-0.031); Immature Granulocyte Percent A 0.3 % (0-0.5); Immature Platelet Fraction Pct 7.2 % (0.9-11.2); Lymphocytes Absolute Auto 1.81 K/mm3 (0.9-3.2); Lymphocytes Percent Auto 27.3 % (18.3-44.2); Mean Corpuscular HGB Conc 31.5 g/dl (32-36); Mean Corpuscular Hemoglobin 30.7 pg (26-34); Mean Corpuscular Volume 97.6 fl (80-100); Mean Platelet Volume 11.6 fl (7.4-10.4); Monocytes Percent Auto 14.3 % (2.6-8.5); Neutrophils Absolute Auto 3.7 K/mm3 (1.3-6.7); Neutrophils Percent Auto 55.8 % (45.5-73.1); Platelet Count Result 105 k/mm3 (150-375); Red Blood Count 4.49 M/mm3 (4.6-6.20); White Blood Count 6.6 K/mm3 (4.5-10.0)
[2021-10-24 05:38] LABS: Ammonia 14 umol/L (9-30)
[2021-10-24 05:42] LABS: Alanine Aminotransferase 297 U/L (6-50); Alkaline Phosphatase 68 U/L (38-126); Anion Gap 5 mmol/L (8-16); Aspartate Amino Transferase 159 U/L (17-59); Bilirubin Indirect 1.4 mg/dL (0-1.1); Blood Urea Nitrogen 16 mg/dL (9-20); CRP 3.7 mg/dL (<1.0); Calcium 8.4 mg/dL (8.4-10.2); Carbon Dioxide 22 mmol/L (22-30); Chloride 105 mmol/L (98-107); Estimated CRCL calculation 122 ml/min; Estimated Glomerular Filt Rate > 60; Glucose 85 mg/dL (65-110); Phosphorus 3.3 mg/dL (2.5-4.5); Potassium 5.4 mmol/L (3.4-5.0); Sodium 132 mmol/L (137-145)
[2021-10-24 05:50] LABS: Immunoglobulin A 104 mg/dL (70-400); Immunoglobulin G 876 mg/dL (700-1600); Immunoglobulin M 35 mg/dL (40-230)
[2021-10-24 06:22] LABS: Iron 33 ug/dL (49-181)
[2021-10-24 06:25] LABS: Percent Iron Saturation 13 % (20-50)
[2021-10-24 07:04] LABS: Folic Acid 13.5 ng/mL (2.76->20)
[2021-10-24 07:21] LABS: Free T4 Free Thyroxine Reflex 1.65 ng/dL (0.78-2.19)
[2021-10-24 08:03] LABS: Total Triiodothyronine (T3) 0.99 NG/ML (0.97-1.69)
[2021-10-24] MEDS: METOPROLOL TARTRATE 12.5 MG TABLET PO ×2 (10:12→20:54)
[2021-10-24] MEDS: BENZONATATE 100 MG CAPSULE PO ×2 (10:12→20:55)
[2021-10-24] MEDS: FUROSEMIDE 40 MG TABLET PO ×2 (10:12→17:43)
[2021-10-24] MEDS: EMPAGLIFLOZIN 10 MG TABLET PO (10:12)
[2021-10-24] MEDS: guaiFENesin 12 HR 600 MG TABCR PO ×2 (10:13→20:54)
--- NOTE | 2021-10-24 15:12 | PM.PNCARD ---
Progress Note: A&P Assessment and Plan (1) Heart failure with reduced ejection fraction: Code(s): I50.20 - Unspecified systolic (congestive) heart failure Status: Acute Assessment and Plan: Patient has CHF with reduced ejection fraction-nonischemic cardiomyopathy. Cardiac catheterization did not show significant obstructive CAD. Still w/ edema and LVEDP was elevated at time of his cath. Will resume dobutamine for another 24 hours, and try to push diuretics while on dobutamine. Add metolazone 2.5 mg b.i.d.. Continue low-dose beta-gail for now. May eventually switch to carvedilol or metoprolol succinate. Initiate SGLT2 inhibitor. Other standard medications for CHF with reduced ejection fraction including ARNI, aldosterone antagonist when able--Entresto on hold due to hyperkalemia and low BP . (2) Nonischemic cardiomyopathy: Code(s): I42.8 - Other cardiomyopathies Status: Acute Assessment and Plan: See above (3) Atrial flutter: Code(s): I48.92 - Unspecified atrial flutter Status: Acute Assessment and Plan: Patient has atrial flutter/fibrillation with underlying severe LV systolic dysfunction. Religion of sinus rhythm would be appropriate. Switch low-molecular weight heparin to rivaroxaban. After discussing benefits and risks with the patient, he is willing to proceed with CHI guided DC cardioversion, tomorrow w/ anesthesia. Life vest at discharge. Need for referral to EP to be determined as an outpatient. (4) Cough: Code(s): R05.9 - Cough, unspecified Status: Acute Assessment and Plan: Dry hacky cough, on antibiotics, Tessalon Perles and guaifenesin. Worse supine so probably a component of CHF involved. Discussed w/ Dr. Thapa, will add a PPI. No wheezing so doubt an inhaler would be helpful. Don't think this will clear up before discharge. (5) Hypotension: Code(s): I95.9 - Hypotension, unspecified Status: Acute Assessment and Plan: Episodic hypotension, going slow w/ CHF meds. (6) Obstructive sleep apnea: Code(s): G47.33 - Obstructive sleep apnea (adult) (pediatric) Status: Acute (7) Elevated liver enzymes: Code(s): R74.8 - Abnormal levels of other serum enzymes Status: Acute Assessment and Plan: Cirrhosis (2nd to CHRISTOPHER?) + hepatic congestion fr CHF. Plan Discussed with primary team. Subjective Date/time seen: 10/24/21 15:12 Interval history: Date of service 10/23/2021 Interval history: Patient had cardiac catheterization done yesterday which do not show significant obstructive CAD. Echo from 10/18/2021 showed 25-30%; and RV dysfunction. Patient reports improvement in his shortness of breath and lower extremity swelling. No chest pain. On telemetry, patient is in atrial fibrillation/flutter. Is currently on dobutamine, which was discontinued Date of service 10/24/2021: Patient does not feel as well off dobutamine, when he walked up and down the [place] he became breathless. Occasionally has a low blood pressure but not symptomatic. Entresto on hold because of hyperkalemia. Still with frequent chronic cough. Unable to lie down, sleeping at at least a 45 degree angle. Still has edema. Telemetry shows atrial flutter with a controlled rate. Review of Systems Constitutional: Constitutional: Reports difficulty sleeping (Unable to lie flat, sleeps at a 45 degree angle to 60 degree angle.) Eyes: Eyes: Reports no additional eye complaints ENT: Denies epistaxis and Denies nasal congestion Cardiovascular: Cardiovascular: Denies chest pain, Reports pedal edema, Reports leg edema, Denies palpitations, Reports dyspnea and Reports dyspnea on exertion Respiratory: Respiratory: Reports chest congestion, Reports cough ( frequent nonproductive), Reports dyspnea and Reports dyspnea on exertion Gastrointestinal: Gastrointestinal: Denies abdominal pain and Reports bloating ( Fluid retention)
--- NOTE | 2021-10-24 15:47 | PM.IMPN ---
Progress Note: A&P Assessment and Plan (1) Heart failure with reduced ejection fraction: Code(s): I50.20 - Unspecified systolic (congestive) heart failure Status: Acute Assessment and Plan: Patient presents with cough and leg edema and found to have new onset CHF. BNP was elevated. CXR was consistent with CHF. Echo 10/18/21 EF 25-30%, severely enlarged left atrium and right atrium, right ventricular systolic function reduced, [id number] TR, and mild MR. EKG showing AFlutter. He was diuresed but now on oral Lasix. Entresto, empagliflozin and metoprolol added. He was started on Dobutamine (10/21-10/23/21). Patient more symptomatic since being off the Dobutamine. Potassium high so Entresto held. Dobutamine to be resumed today. BP low at times but stable. Metolazone added. (2) Atrial flutter: Code(s): I48.92 - Unspecified atrial flutter Status: Acute Assessment and Plan: EKG showed atrial flutter with RVR. He was started on Lovenox but now changed to Xarelto. Rate controlled with metoprolol. Cardioversion cancelled today. Cardioversion planned for tomorrow with anesthesiology. (3) Nonischemic cardiomyopathy: Code(s): I42.8 - Other cardiomyopathies Status: Acute Assessment and Plan: Low ejection fraction at 25-30%. Ischemic evaluation showing only minimal CAD by left heart cath on 10/22/21. Apnea link test inconclusive on CPAP. Will need LifeVest at discharge. As above. (4) Elevated liver enzymes: Code(s): R74.8 - Abnormal levels of other serum enzymes Status: Acute Assessment and Plan: LFTs elevated. Right upper quadrant ultrasound suggests findings of cirrhosis with portal hypertension. Likely related to CHRISTOPHER which is a new finding for him. Hepatitis panel negative. PT 16.1 with INR 1.3. Ammonia 14. Suspect component of hepatic congestion from the NICMP and CHF. AST/ALT better. Will need to follow-up as an outpatient basis. Continue to monitor liver enzymes. Consider adding Spironolactone if able to tolerate. (5) Hypotension: Code(s): I95.9 - Hypotension, unspecified Status: Acute Assessment and Plan: Patient was transferred to the ICU as he was found to be hypotensive and bradycardic after he received metoprolol, Lasix and Entresto on the afternoon of 10/19/21 shortly after which he became symptomatic. Patient was given IV fluids and albumin and PICC line was inserted. Patient did not require vasopressors but was started on Dobutamine later. BP improved overall but still soft at times. Medication have been adjusted now (6) Cough: Code(s): R05.9 - Cough, unspecified Status: Inactive Assessment and Plan: Chest x-ray shows atelectasis versus pneumonia in the right lower lobe. He was started on Rocephin 1 g IV daily as well as Zithromax 500 mg daily for possible pneumonia. Low suspicion for any acute infectious process as new onset heart failure is most likely the causative factor. Repeat CXR reviewed showing persistent R>L bibasilar airspace disease but improvement in the pulmonary congestion. Consider post nasal drainage and/or GERD. Given his low EF, azithromycin was stopped. Continue antitussives. Change to protonix. Add Flonase (7) Obstructive sleep apnea: Code(s): G47.33 - Obstructive sleep apnea (adult) (pediatric) Status: Acute Assessment and Plan: On CPAP uses religiously since more than 10 years. Continue the same. (8) Thrombocytopenia: Code(s): D69.6 - Thrombocytopenia, unspecified Status: Acute Assessment and Plan: Patient is off Lovenox currently. Platelet count drifting downward probably related to cirrhosis. B12 folate level are normal. Continue to follow. Subjective Date/time seen: 10/24/21 15:47 Interval history: 56yo male with hx of HTN and LAVON here for cough and found to have NICMP and CHF. Slept poorly last night. Was up at night due to
[2021-10-24] MEDS: DOBUTamine 250 MG/D5W 250 ML 250 MG/250 ML BAG 20.7 MG IV CONT (15:49)
[2021-10-24] MEDS: RIVAROXABAN 20 MG TABLET PO (17:43)
[2021-10-24] MEDS: metOLazone 2.5 MG TABLET PO (17:43)
[2021-10-24] MEDS: FLUTICASONE PROPIONATE 0.05% NA SPR 16 GM BTL (*BKC) 1 SPRAY NASAL (20:54)
[2021-10-24] MEDS: PANTOPRAZOLE SODIUM IV 40 MG VIAL IV PUSH (20:55)
[2021-10-25] VITALS (20 sets, daily range): BP systolic 98–1077; BP diastolic 64–83; PULSE 68–112; RESP 15–20; TEMP 36.2–36.8; O2SAT 97–100
[2021-10-25] MEDS: DOBUTamine 250 MG/D5W 250 ML 250 MG/250 ML BAG 20.7 MG IV CONT ×2 (03:59→18:13)
[2021-10-25 04:27] LABS: Hematocrit 42.2 % (42.0-52.0); Hemoglobin 13.6 g/dL (14.0-18.0); Immature Platelet Fraction Pct 7.4 % (0.9-11.2); Mean Corpuscular HGB Conc 32.2 g/dl (32-36); Mean Corpuscular Hemoglobin 30.8 pg (26-34); Mean Corpuscular Volume 95.5 fl (80-100); Mean Platelet Volume 11.7 fl (7.4-10.4); Platelet Count Result 120 k/mm3 (150-375); Red Blood Count 4.42 M/mm3 (4.6-6.20); Red Cell Distribution Width 13.9 % (11.5-14.5); White Blood Count 5.8 K/mm3 (4.5-10.0)
[2021-10-25 04:34] LABS: Alanine Aminotransferase 253 U/L (6-50); Albumin Level 3.9 g/dL (3.5-5.1); Alkaline Phosphatase 83 U/L (38-126); Anion Gap 5 mmol/L (8-16); Aspartate Amino Transferase 113 U/L (17-59); Bilirubin,Total 1.5 mg/dL (0.2-1.3); Blood Urea Nitrogen 18 mg/dL (9-20); Calcium 8.7 mg/dL (8.4-10.2); Carbon Dioxide 27 mmol/L (22-30); Chloride 101 mmol/L (98-107); Estimated CRCL calculation 110 ml/min; Estimated Glomerular Filt Rate > 60; Glucose 129 mg/dL (65-110); Potassium 3.4 mmol/L (3.4-5.0); Sodium 133 mmol/L (137-145)
[2021-10-25] MEDS: CENTRAL LINE FLUSH 10 ML IV PUSH ×2 (05:35→22:10)
[2021-10-25] MEDS: EMPAGLIFLOZIN 10 MG TABLET PO (10:04)
[2021-10-25] MEDS: guaiFENesin 12 HR 600 MG TABCR PO ×2 (10:04→20:32)
[2021-10-25] MEDS: FUROSEMIDE 40 MG TABLET PO ×2 (10:04→18:12)
[2021-10-25] MEDS: METOPROLOL TARTRATE 12.5 MG TABLET PO ×2 (10:04→20:32)
[2021-10-25] MEDS: metOLazone 2.5 MG TABLET PO ×2 (10:04→18:13)
[2021-10-25] MEDS: FLUTICASONE PROPIONATE 0.05% NA SPR 16 GM BTL (*BKC) 1 SPRAY NASAL ×2 (10:04→20:31)
[2021-10-25] MEDS: PANTOPRAZOLE SODIUM IV 40 MG VIAL IV PUSH ×2 (10:06→20:34)
[2021-10-25] MEDS: BENZONATATE 100 MG CAPSULE PO ×2 (10:06→20:33)
[2021-10-25] MEDS: guaiFENesin/CODEINE (*CRX) 200/20 MG 10 ML SYRUP PO ×3 (10:17→22:43)
--- NOTE | 2021-10-25 12:12 | WPDANESEPPF ---
Anes - Initial Pre Proc Eval Procedure: Operation Date: 10/22/21 14:00 Proposed Procedures p Left Heart Cath - Laura Miller MD Operation Date: 10/25/21 13:30 Proposed Procedures p Trans Esophageal Echo - Ana Durand MD s Electrical Cardioversion - Ana Durand MD Date/Time: 10/25/21 12:12 Surgeon: Shane Haley MD Pre Op Diagnosis: New onset CHF Patient Data Age: 56 Gender: M Height: 1.88 m Weight: 130 kg Last Vital Signs Temp 97.5 F L 10/25/21 08:00 Pulse 80 10/25/21 08:00 Resp 16 10/25/21 08:00 BP 130/72 10/25/21 08:00 Pulse Ox 100 10/25/21 08:00 O2 Del Method CPAP 10/25/21 04:00 O2 Flow Rate 3 10/22/21 15:25 Allergies Allergy/AdvReac Type Severity Reaction Status Date / Time No Known Allergies Allergy Verified 10/18/21 08:46 Home Medications Medication Instructions Recorded Confirmed Type amlodipine 5 mg tablet (Norvasc) 5 mg PO DAILY 08/13/20 10/18/21 History Saccharomyces boulardii 250 mg 250 mg PO DAILY 10/18/21 10/18/21 History capsule (Florastor) celecoxib 200 mg capsule 200 mg PO DAILY 10/18/21 10/19/21 History ibuprofen 600 mg tablet 600 mg PO Q6H PRN Pain 10/18/21 10/18/21 History naltrexone 8 mg-bupropion 90 mg 2 tablet PO DAILY 10/18/21 10/18/21 History tablet,extended release (Contrave) tadalafil 5 mg tablet 5 mg PO DAILY 10/18/21 10/18/21 History Laboratory Tests 10/25/21 10/25/21 04:12 04:12 WBC 5.8 K/mm3 K/mm3 (4.5-10.0) RBC 4.42 M/mm3 L M/mm3 (4.6-6.20) Hgb 13.6 g/dL L g/dL (14.0-18.0) Hct 42.2 % % (42.0-52.0) MCV 95.5 fl fl (80-100) MCH 30.8 pg pg (26-34) MCHC 32.2 g/dl g/dl (32-36) RDW 13.9 % % (11.5-14.5) Plt Count 120 k/mm3 L k/mm3 (150-375) MPV 11.7 fl H fl (7.4-10.4) % Immature Plt Fraction 7.4 % % (0.9-11.2) Sodium 133 mmol/L L mmol/L (137-145) Potassium 3.4 mmol/L mmol/L (3.4-5.0) Chloride 101 mmol/L mmol/L (98-107) Carbon Dioxide 27 mmol/L mmol/L (22-30) Anion Gap 5 mmol/L L mmol/L (8-16) BUN 18 mg/dL mg/dL (9-20) Creatinine 1.00 mg/dL mg/dL (0.7-1.3) Estim Creat Clear Calc 110 ml/min ml/min Estimated GFR > 60 (59 - ) Glucose 129 mg/dL H mg/dL (65-110) Calcium 8.7 mg/dL mg/dL (8.4-10.2) Total Bilirubin 1.5 mg/dL H mg/dL (0.2-1.3) Direct Bilirubin 0.0 mg/dL mg/dL (0-0.3) AST 113 U/L H U/L (17-59) ALT 253 U/L H U/L (6-50) Alkaline Phosphatase 83 U/L U/L (38-126) Total Protein 7.0 g/dL g/dL (6.3-8.2) Albumin 3.9 g/dL g/dL (3.5-5.1) Patient hx anesthesia problems: none Family hx anesthesia problems: none Results Review: All pre-operative results and documents have been reviewed as part of the pre-operative evaluation. [facility] Past Medical History Medical History Hypertension LAVON (obstructive sleep apnea) Surgical History Surgical History H/O kyphoplasty S/P tendon repair right hand Family History Family History Other Family history non-contributory Social History Social History Smoking status: Never smoker Alcohol intake: current Substance use: never Gender identity (if verbalized by the patient): Male Spiritual care concerns: Yes Anes - Eval Final PreProcedure Day of Procedure 10/25/21 12:12 Patient weight: obese Heart: irregular rhythm Lungs: clear to auscultation Airway: Mallampati scale class III Neurological: alert and oriented Last oral intake: >/= 8 hours ASA classification: III Emergent: no Anesthetic plan: proceed Anesthesia type and monitoring: general GIVS and standard monitoring Result
--- NOTE | 2021-10-25 13:23 | WPDHPUPDATE1 ---
History and Physical Update Update Date/Time: 10/25/21 13:23 History and Physical has been reviewed, including an updated exam of the patient. There are NO changes in the patient's condition. Risks, benefits, and alternatives have been discussed and questions answered. Patient agrees to proceed with procedure.
--- NOTE | 2021-10-25 14:07 | WPDTECDV ---
CHI with Cardioversion Date of procedure: 10/25/21 Procedure Type: CHI guided cardioversion Diagnosis: CHF, cardiomyopathy, atrial flutter Indications: CHF, cardiomyopathy, atrial flutter Description of Procedure: CHI guided cardioversion Sedation: for anesthesia Findings: After sedation With anesthesia, the transesophageal echo probe was introduced esophagus without difficulty. imaging was obtained Primarily of the left atrium left and atrial appendage. A complete CHI was not performed because of the patient's coughing and his need for additional sedation /anesthesia. There was no thrombus present in left atrium or left atrial appendage. Spontaneous contrast was seen in the left atrium. There was severe left ventricular dysfunction, and abrief view suggested an ejection fraction of 30%. Moderate mitral regurgitation was noted. After assuring the patient was well sedated, he underwent synchronized electrical cardioversion with 200 joules, and sinus rhythm was restored. Conclusion: Successful electrical cardioversion to sinus rhythm Plan: Patient's blood pressure has been more stable, and he is diuresing well with the current regimen. Cough has improved and he slept well for the first time. Continue metolazone and dobutamine until tomorrow morning. Observe the patient 1 more day and discharge on Friday. Resume Entresto at low dose Continue Xarelto. Discussed with the patient's .
--- NOTE | 2021-10-25 16:14 | ECG_ITS ---
Measurements Intervals [place] Rate: 81 P: 29 [place]: 220 QRS: -28 QRSD: 108 T: 53 QT: 404 QTc: 471 Interpretive Statements SINUS RHYTHM WITH FIRST DEGREE AV BLOCK LEFT AXIS DEVIATION INCOMPLETE RIGHT BUNDLE BRANCH BLOCK NONSPECIFIC T-WAVE ABNORMALITY COMPARED TO ECG 10/19/2021 13:45:49 SINUS RHYTHM HAS BEEN RESTORED. FIRST DEGREE AV BLOCK NOW PRESENT Electronically Signed On 10-25-2021 20:38:16 CDT by Ana Durand M.D.
--- NOTE | 2021-10-25 17:30 | PM.IMPN ---
Progress Note: A&P Assessment and Plan (1) Heart failure with reduced ejection fraction: Code(s): I50.20 - Unspecified systolic (congestive) heart failure Status: Acute Assessment and Plan: Patient presents with cough and leg edema and found to have new onset CHF. BNP was elevated. CXR was consistent with CHF. Echo showing EF 25-30%, severely enlarged left atrium and right atrium, right ventricular systolic function reduced, [id number] TR, and mild MR. EKG showing AFlutter. He was diuresed with IV lasix but now on oral. Entresto, empagliflozin and metoprolol added. He was started on Dobutamine (10/21-10/23/21). Patient was more symptomatic since being off the Dobutamine so Dobutamine resumed 10/24. Potassium high so Entresto held and now dose reduced. Metolazone added with excellent results. Appreciate cardiology input. (2) Atrial flutter: Code(s): I48.92 - Unspecified atrial flutter Status: Acute Assessment and Plan: EKG showed atrial flutter with RVR. He was started on Lovenox but now changed to Xarelto. Rate controlled with metoprolol. Cardioversion today and he was successfully converted to NSR. Continue to monitor on tele. (3) Nonischemic cardiomyopathy: Code(s): I42.8 - Other cardiomyopathies Status: Acute Assessment and Plan: Low ejection fraction at 25-30%. Ischemic evaluation showing only minimal CAD by left heart cath on 10/22/21. Apnea link test inconclusive on CPAP. LifeVest at discharge. As above. (4) Elevated liver enzymes: Code(s): R74.8 - Abnormal levels of other serum enzymes Status: Acute Assessment and Plan: LFTs elevated. Right upper quadrant ultrasound suggests findings of cirrhosis with portal hypertension. Likely related to CHRISTOPHER which is a new finding for him. Hepatitis panel negative. PT 16.1 with INR 1.3. Ammonia 14. Suspect component of hepatic congestion from the NICMP and CHF. AST/ALT better related to improved fluid status. Will need to follow-up as an outpatient basis. Continue to monitor liver enzymes. Consider adding Spironolactone if able to tolerate. (5) Hypotension: Code(s): I95.9 - Hypotension, unspecified Status: Acute Assessment and Plan: Patient was transferred to the ICU as he was found to be hypotensive and bradycardic after he received metoprolol, Lasix and Entresto on the afternoon of 10/19/21 shortly after which he became symptomatic. Patient was given IV fluids and albumin and PICC line was inserted. Patient did not require vasopressors but was started on Dobutamine later. BP improved overall but still soft at times. Medication have been adjusted and seems to be tolerating these changes. (6) Cough: Code(s): R05.9 - Cough, unspecified Status: Inactive Assessment and Plan: Chest x-ray shows atelectasis versus pneumonia in the right lower lobe. He was started on Rocephin 1 g IV daily as well as Zithromax 500 mg daily for possible pneumonia. Low suspicion for any acute infectious process as new onset heart failure is most likely the causative factor. Repeat CXR reviewed showing persistent R>L bibasilar airspace disease but improvement in the pulmonary congestion. Consider post nasal drainage and/or GERD. Given his low EF, azithromycin was stopped. Cough better. Continue antitussives, Protonix and Flonase. Has completed a course of Rocephin so will stop. (7) Obstructive sleep apnea: Code(s): G47.33 - Obstructive sleep apnea (adult) (pediatric) Status: Acute Assessment and Plan: On CPAP uses religiously since more than 10 years. Continue the same. (8) Thrombocytopenia: Code(s): D69.6 - Thrombocytopenia, unspecified Status: Acute Assessment and Plan: Patient is off Lovenox currently. Platelet count better today. Probably related to cirrhosis. B12 folate level are normal. Continue to follow. Subjective Date/time seen:
[2021-10-25] MEDS: RIVAROXABAN 20 MG TABLET PO (18:12)
[2021-10-25] MEDS: POTASSIUM CHLORIDE 20 MEQ TABLET 40 MEQ PO (18:25)
[2021-10-25] MEDS: SACUBITRIL/VALSARTAN 12-13 MG TABLET 1 TAB PO (20:33)
[2021-10-25] MEDS: ACETAMINOPHEN 325 MG TABLET 650 MG PO (22:43)
[2021-10-25 23:38] LABS: Anion Gap 10 mmol/L (8-16); Blood Urea Nitrogen 18 mg/dL (9-20); Calcium 9.2 mg/dL (8.4-10.2); Carbon Dioxide 27 mmol/L (22-30); Chloride 93 mmol/L (98-107); Estimated CRCL calculation 90 ml/min; Estimated Glomerular Filt Rate > 60; Glucose 120 mg/dL (65-110); Potassium 3.5 mmol/L (3.4-5.0); Sodium 130 mmol/L (137-145)
[2021-10-26] VITALS (16 sets, daily range): BP systolic 90–103; BP diastolic 55–75; PULSE 74–96; RESP 12–20; TEMP 36.2–36.7; O2SAT 97–99
[2021-10-26 05:46] LABS: Hematocrit 44.8 % (42.0-52.0); Hemoglobin 14.6 g/dL (14.0-18.0); Mean Corpuscular HGB Conc 32.6 g/dl (32-36); Mean Corpuscular Hemoglobin 30.5 pg (26-34); Mean Corpuscular Volume 93.7 fl (80-100); Platelet Count Result 153 k/mm3 (150-375); Red Blood Count 4.78 M/mm3 (4.6-6.20); Red Cell Distribution Width 13.6 % (11.5-14.5); White Blood Count 6.2 K/mm3 (4.5-10.0)
[2021-10-26 05:55] LABS: Alanine Aminotransferase 236 U/L (6-50); Albumin Level 4.5 g/dL (3.5-5.1); Alkaline Phosphatase 91 U/L (38-126); Anion Gap 8 mmol/L (8-16); Aspartate Amino Transferase 102 U/L (17-59); Bilirubin,Total 1.9 mg/dL (0.2-1.3); Blood Urea Nitrogen 19 mg/dL (9-20); Calcium 9.1 mg/dL (8.4-10.2); Carbon Dioxide 29 mmol/L (22-30); Chloride 96 mmol/L (98-107); Estimated CRCL calculation 97 ml/min; Estimated Glomerular Filt Rate > 60; Glucose 109 mg/dL (65-110); Potassium 3.5 mmol/L (3.4-5.0); Sodium 133 mmol/L (137-145)
[2021-10-26] MEDS: CENTRAL LINE FLUSH 10 ML IV PUSH ×3 (06:18→21:59)
[2021-10-26] MEDS: DOBUTamine 250 MG/D5W 250 ML 250 MG/250 ML BAG 20.7 MG IV CONT (06:20)
[2021-10-26] MEDS: PANTOPRAZOLE 40 MG TABLET PO ×2 (08:42→10:12)
[2021-10-26] MEDS: METOPROLOL TARTRATE 12.5 MG TABLET PO ×2 (08:43→21:58)
[2021-10-26] MEDS: metOLazone 2.5 MG TABLET PO ×2 (08:43→18:05)
[2021-10-26] MEDS: SACUBITRIL/VALSARTAN 12-13 MG TABLET 1 TAB PO ×2 (08:43→21:59)
[2021-10-26] MEDS: FUROSEMIDE 40 MG TABLET PO ×2 (08:43→18:05)
[2021-10-26] MEDS: guaiFENesin 12 HR 600 MG TABCR PO ×2 (08:43→21:57)
[2021-10-26] MEDS: BENZONATATE 100 MG CAPSULE PO ×2 (08:44→21:59)
[2021-10-26] MEDS: FLUTICASONE PROPIONATE 0.05% NA SPR 16 GM BTL (*BKC) 1 SPRAY NASAL ×2 (08:44→21:56)
[2021-10-26] MEDS: EMPAGLIFLOZIN 10 MG TABLET PO (08:44)
[2021-10-26] MEDS: POTASSIUM CHLORIDE 20 MEQ TABLET 40 MEQ PO (10:12)
--- NOTE | 2021-10-26 11:10 | PM.PNCARD ---
Progress Note: A&P Assessment and Plan (1) Heart failure with reduced ejection fraction: Code(s): I50.20 - Unspecified systolic (congestive) heart failure Status: Acute Assessment and Plan: Patient has CHF with reduced ejection fraction-nonischemic cardiomyopathy. Cardiac catheterization did not show significant obstructive CAD. Off [employer] this morning Diuresing well Continue Entresto Continue low dose beta gail Continue Jardiance Hopefully will be able to optimize medical therapy as an outpatient LifeVest in place anticipate d/c home tomorrow (2) Nonischemic cardiomyopathy: Code(s): I42.8 - Other cardiomyopathies Status: Acute Assessment and Plan: See above (3) Atrial flutter: Code(s): I48.92 - Unspecified atrial flutter Status: Acute Assessment and Plan: Patient has atrial flutter/fibrillation with underlying severe LV systolic dysfunction. S/p CHI/CV yesterdy with evangelical of sinus rhythm Continue a/c with Xarelto (4) Cough: Code(s): R05.9 - Cough, unspecified Status: Acute Assessment and Plan: Dry hacky cough, on antibiotics, Tessalon Perles and guaifenesin. Worse supine so probably a component of CHF involved. Improved. (5) Hypotension: Code(s): I95.9 - Hypotension, unspecified Status: Acute Assessment and Plan: Episodic hypotension, going slow w/ CHF meds. BP acceptable at this point. (6) Obstructive sleep apnea: Code(s): G47.33 - Obstructive sleep apnea (adult) (pediatric) Status: Acute Assessment and Plan: CPAP (7) Elevated liver enzymes: Code(s): R74.8 - Abnormal levels of other serum enzymes Status: Acute Assessment and Plan: Cirrhosis (2/2 CHRISTOPHER?) + hepatic congestion fr CHF. Subjective Date/time seen: 10/26/21 11:10 Interval history: 56yo male with hx of HTN and LAVON here for cough and found to have NICM and CHF. Patient feels much better. He slept well last night. He has noted increasing urine output. Abdominal bloating has resolved. Scrotal edema has improved. His U noted that the lower extremity edema has improved. He slept well last night with minimal cough. Date of service 10/26/2021: Continues to improve. Some LE swelling but significantly improved. Up walking around without any SOB. Continues to diurese well. Review of Systems Constitutional: Constitutional: Denies chills, Reports difficulty sleeping (Unable to lie flat, sleeps at a 45 degree angle to 60 degree angle.), Denies fever(s) and Denies headache(s) Eyes: Eyes: Reports no additional eye complaints and Denies change in vision ENT: Reports Normal hearing present, Denies dizziness, Denies headache(s), Denies hearing loss, Denies epistaxis and Denies nasal congestion Cardiovascular: Cardiovascular: Denies chest pain, Denies chest pain at rest, Denies chest pain with activity, Denies syncope, Reports pedal edema, Reports leg edema, Denies palpitations, Reports dyspnea and Reports dyspnea on exertion Respiratory: Respiratory: Reports chest congestion, Reports cough ( frequent nonproductive), Reports dyspnea, Reports dyspnea on exertion and Denies wheezing Gastrointestinal: Gastrointestinal: Denies abdominal pain, Reports bloating ( Fluid retention), Reports constipation and Denies diarrhea Genitourinary: Genitourinary: Reports no additional male genitourinary complaints, Denies hematuria and Denies dysuria Musculoskeletal: Musculoskeletal: Reports no additional musculoskeletal complaints, Denies myalgias, Denies arthralgias and Denies muscle cramps Integumentary/Breasts: Skin/Breast: Denies rash and Denies wounds Neurologic: Reports system reviewed and no additional complaints, except as documented, Reports Normal hearing present, Denies confusion, Denies dizziness, Denies syncope and Denies headache(s) Psychiatric: Psychiatric: Reports no additional psychiatric complaints,
--- NOTE | 2021-10-26 15:37 | PM.IMPN ---
Progress Note: A&P Assessment and Plan (1) Heart failure with reduced ejection fraction: Code(s): I50.20 - Unspecified systolic (congestive) heart failure Status: Acute Assessment and Plan: Patient presents with cough and leg edema and found to have new onset CHF. BNP was elevated. CXR was consistent with CHF. Echo showing EF 25-30%, severely enlarged left atrium and right atrium, right ventricular systolic function reduced, [id number] TR, and mild MR. EKG showing AFlutter. He was diuresed with IV lasix but now on oral. Entresto, empagliflozin and metoprolol added. He was started on Dobutamine (10/21-10/23/21). Patient was more symptomatic since being off the Dobutamine so Dobutamine resumed 10/24 and stopped again today. Metolazone added with excellent results. Cumulative fluid balance -5.9L. Contineu aggressive medical management. Appreciate cardiology input. (2) Atrial flutter: Code(s): I48.92 - Unspecified atrial flutter Status: Acute Assessment and Plan: EKG showed atrial flutter with RVR. He was started on Lovenox but now changed to Xarelto. Rate controlled with metoprolol. He had a successful cardioversion 10/25 and is maintaining NSR. Continue to monitor on tele. (3) Nonischemic cardiomyopathy: Code(s): I42.8 - Other cardiomyopathies Status: Acute Assessment and Plan: Low ejection fraction at 25-30%. Ischemic evaluation showing only minimal CAD by left heart cath on 10/22/21. Apnea link test inconclusive on CPAP. LifeVest at discharge. As above. (4) Elevated liver enzymes: Code(s): R74.8 - Abnormal levels of other serum enzymes Status: Acute Assessment and Plan: LFTs elevated. Right upper quadrant ultrasound suggests findings of cirrhosis with portal hypertension. Likely related to CHRISTOPHER vs alcoholic hepatitis. Hepatitis panel negative. PT 16.1 with INR 1.3. Ammonia 14. Suspect component of hepatic congestion from the NICMP and CHF. AST/ALT better related to improved fluid status. Will need to follow-up as an outpatient basis. Continue to monitor liver enzymes. Consider adding Spironolactone if able to tolerate. He was educated about the benefits of staying from all alcohol. (5) Hypotension: Code(s): I95.9 - Hypotension, unspecified Status: Acute Assessment and Plan: Patient was transferred to the ICU as he was found to be hypotensive and bradycardic after he received metoprolol, Lasix and Entresto on the afternoon of 10/19/21 shortly after which he became symptomatic. Patient was given IV fluids and albumin and PICC line was inserted. Patient did not require vasopressors but was started on Dobutamine later. BP improved overall but still soft at times. Medication have been adjusted and seems to be tolerating these changes. (6) Cough: Code(s): R05.9 - Cough, unspecified Status: Inactive Assessment and Plan: Chest x-ray shows atelectasis versus pneumonia in the right lower lobe. He was started on Rocephin 1 g IV daily as well as Zithromax 500 mg daily for possible pneumonia. Low suspicion for any acute infectious process as new onset heart failure is most likely the causative factor. Repeat CXR reviewed showing persistent R>L bibasilar airspace disease but improvement in the pulmonary congestion. Consider post nasal drainage and/or GERD. Given his low EF, azithromycin was stopped. Cough better. Continue antitussives, Protonix and Flonase. Has completed a course of Rocephin. (7) Obstructive sleep apnea: Code(s): G47.33 - Obstructive sleep apnea (adult) (pediatric) Status: Acute Assessment and Plan: On CPAP that he uses religiously since more than 10 years. Continue the same. (8) Thrombocytopenia: Code(s): D69.6 - Thrombocytopenia, unspecified Status: Acute Assessment and Plan: Patient is off Lovenox. Platelet count back to normal today. Probably related to cirrhosis.
[2021-10-26] MEDS: RIVAROXABAN 20 MG TABLET PO (18:05)
[2021-10-26 21:52] LABS: Ceruloplasmin 30 mg/dL (18-36)
[2021-10-26] MEDS: guaiFENesin/CODEINE (*CRX) 200/20 MG 10 ML SYRUP PO (22:12)
[2021-10-26] MEDS: ACETAMINOPHEN 325 MG TABLET 650 MG PO (22:12)
[2021-10-27] VITALS (13 sets, daily range): BP systolic 91–101; BP diastolic 57–68; PULSE 64–88; RESP 16–20; TEMP 36.2–36.7; O2SAT 96–99
[2021-10-27] MEDS: CENTRAL LINE FLUSH 10 ML IV PUSH ×2 (05:27→14:45)
[2021-10-27 05:50] LABS: Anion Gap 9 mmol/L (8-16); Blood Urea Nitrogen 22 mg/dL (9-20); Calcium 8.9 mg/dL (8.4-10.2); Carbon Dioxide 28 mmol/L (22-30); Chloride 95 mmol/L (98-107); Estimated CRCL calculation 97 ml/min; Estimated Glomerular Filt Rate > 60; Glucose 104 mg/dL (65-110); Potassium 3.2 mmol/L (3.4-5.0); Sodium 132 mmol/L (137-145)
[2021-10-27] MEDS: FLUTICASONE PROPIONATE 0.05% NA SPR 16 GM BTL (*BKC) 1 SPRAY NASAL (08:17)
[2021-10-27] MEDS: POTASSIUM CHLORIDE 20 MEQ TABLET 40 MEQ PO (08:17)
[2021-10-27] MEDS: METOPROLOL TARTRATE 12.5 MG TABLET PO (08:18)
[2021-10-27] MEDS: EMPAGLIFLOZIN 10 MG TABLET PO (08:18)
[2021-10-27] MEDS: guaiFENesin 12 HR 600 MG TABCR PO (08:18)
[2021-10-27] MEDS: FUROSEMIDE 40 MG TABLET PO (08:18)
[2021-10-27] MEDS: metOLazone 2.5 MG TABLET PO (08:18)
[2021-10-27] MEDS: SACUBITRIL/VALSARTAN 12-13 MG TABLET 1 TAB PO (08:18)
[2021-10-27] MEDS: PANTOPRAZOLE 40 MG TABLET PO (08:19)
--- NOTE | 2021-10-27 13:34 | PM.PNCARD ---
Progress Note: A&P Assessment and Plan (1) Heart failure with reduced ejection fraction: Code(s): I50.20 - Unspecified systolic (congestive) heart failure Status: Acute Assessment and Plan: Patient has CHF with reduced ejection fraction-nonischemic cardiomyopathy. Cardiac catheterization did not show significant obstructive CAD. has diuresed well, euvolemic at this point. Continue Entresto Continue low dose beta gail Continue Jardiance Hopefully will be able to optimize medical therapy as an outpatient LifeVest in place [place] for discharge today from a cardiac perspective. (2) Nonischemic cardiomyopathy: Code(s): I42.8 - Other cardiomyopathies Status: Acute Assessment and Plan: See above (3) Atrial flutter: Code(s): I48.92 - Unspecified atrial flutter Status: Acute Assessment and Plan: Patient has atrial flutter/fibrillation with underlying severe LV systolic dysfunction. S/p CHI/CV yesterdy with alevism of sinus rhythm Continue a/c with Xarelto (4) Cough: Code(s): R05.9 - Cough, unspecified Status: Acute Assessment and Plan: Dry hacky cough, on antibiotics, Tessalon Perles and guaifenesin. Worse supine so probably a component of CHF involved. Improved. (5) Hypotension: Code(s): I95.9 - Hypotension, unspecified Status: Acute Assessment and Plan: Episodic hypotension, going slow w/ CHF meds. BP acceptable at this point. (6) Obstructive sleep apnea: Code(s): G47.33 - Obstructive sleep apnea (adult) (pediatric) Status: Acute Assessment and Plan: CPAP (7) Elevated liver enzymes: Code(s): R74.8 - Abnormal levels of other serum enzymes Status: Acute Assessment and Plan: Cirrhosis (2/2 CHRISTOPHER?) + hepatic congestion fr CHF. Subjective Date/time seen: 10/27/21 13:34 Interval history: 56yo male with hx of HTN and LAVON here for cough and found to have NICM and CHF. Patient feels much better. He slept well last night. He has noted increasing urine output. Abdominal bloating has resolved. Scrotal edema has improved. His U noted that the lower extremity edema has improved. He slept well last night with minimal cough. Date of service 10/26/2021: Continues to improve. Some LE swelling but significantly improved. Up walking around without any SOB. Continues to diurese well. Date of service 10/27/2020: Feels good today. No shortness of breath, palpitations, chest pain. Review of Systems Review of Systems: All systems reviewed & are unremarkable except as noted in HPI and below Exam Const: General: comfortable, no acute distress, alert, awake and in distress; No confusion Orientation/consciousness: patient oriented x3 and No confusion Other: Standing at bedside with , getting ready to walk around the unit. HENMT: Head: normal to inspection Mouth: Yes moist mucous membranes Eyes: General: appearance normal, both eyes and all related structures Pupils: Equal, round and reactive pupils present EOM: EOMs intact bilaterally Neck: Neck: normal visual inspection, supple and no JVD Carotids: normal carotid upstroke Resp: Effort & Inspection: normal respiratory effort Auscultation: clear to auscultation bilaterally Other: diminished breath sounds in bases Cardio: Rate: regular rate and tachycardic Rhythm: regular rhythm and abnormal rhythm irregularly irregular Heart sounds: S1 normal heart sound present, S2 normal heart sound present and no murmurs GI: Inspection: normal to inspection and distended Auscultation: normal bowel sounds Skin: General skin exam: normal color and no rashes or lesions noted Other: R groin arterial access site free from bleeding, hematoma, bruit. Neuro: General: patient oriented x3 and No confusion Cranial nerves: Yes Equal, round and reactive pupils present and Yes Normal hearing present Speech: normal speech Mot
--- NOTE | 2021-10-27 15:27 | PM.DS ---
DS: Admitting Diagnosis Discharge Date 10/27/21 Admitting Diagnosis Cough DS: Discharge Diagnosis Discharge Diagnosis (1) Heart failure with reduced ejection fraction: Code(s): I50.20 - Unspecified systolic (congestive) heart failure Status: Acute Assessment and Plan: Patient presents with cough and leg edema and found to have new onset CHF. BNP was elevated. CXR was consistent with CHF. Echo showing EF 25-30%, severely enlarged left atrium and right atrium, right ventricular systolic function reduced, [id number] TR, and mild MR. EKG showing AFlutter. He was diuresed with IV lasix then switched to oral. Entresto, empagliflozin and metoprolol added. He was started on Dobutamine but became more symptomatic since being off so Dobutamine resumed until fluid status improved. Feels well off the Dobutamine. Metolazone was added with excellent results. Appreciate cardiology input. (2) Atrial flutter: Code(s): I48.92 - Unspecified atrial flutter Status: Acute Assessment and Plan: EKG showed atrial flutter with RVR. He was started on Lovenox then changed to Xarelto. Rate controlled with metoprolol. He had a successful cardioversion 10/25 and is maintaining NSR. (3) Nonischemic cardiomyopathy: Code(s): I42.8 - Other cardiomyopathies Status: Acute Assessment and Plan: Low ejection fraction at 25-30%. Ischemic evaluation showing only minimal CAD by left heart cath on 10/22/21. Apnea link test inconclusive on CPAP. LifeVest arranged for discharge. (4) Elevated liver enzymes: Code(s): R74.8 - Abnormal levels of other serum enzymes Status: Acute Assessment and Plan: LFTs elevated. Right upper quadrant ultrasound suggests findings of cirrhosis with portal hypertension. Likely related to CHRISTOPHER vs alcoholic hepatitis. Hepatitis panel negative. PT 16.1 with INR 1.3. Ammonia 14. Suspect component of hepatic congestion from the NICMP and CHF. AST/ALT better related to improved fluid status. Will need to follow-up as an outpatient basis. He was educated about the benefits of abstaining from all alcohol. (5) Hypotension: Code(s): I95.9 - Hypotension, unspecified Status: Acute Assessment and Plan: Patient was transferred to the ICU as he was found to be hypotensive and bradycardic after he received metoprolol, Lasix and Entresto on the afternoon of 10/19/21 shortly after which he became symptomatic. Patient was given IV fluids and albumin and PICC line was inserted. Patient did not require vasopressors but was started on Dobutamine later. Medication were adjusted and seems to be tolerating these changes. BP improved overall. (6) Cough: Code(s): R05.9 - Cough, unspecified Status: Inactive Assessment and Plan: Chest x-ray shows atelectasis versus pneumonia in the right lower lobe. He was started on Rocephin and Zithromax; he completed a course of Rocephin. Low suspicion for any acute infectious process as new onset heart failure is most likely the causative factor. Repeat CXR showing persistent R>L bibasilar airspace disease but improvement in the pulmonary congestion. Cough improved. (7) Obstructive sleep apnea: Code(s): G47.33 - Obstructive sleep apnea (adult) (pediatric) Status: Acute Assessment and Plan: On CPAP that he uses religiously since more than 10 years. We continued the same. (8) Thrombocytopenia: Code(s): D69.6 - Thrombocytopenia, unspecified Status: Acute Assessment and Plan: Platelet count dropped to 105K but back to normal now. Probably related to cirrhosis. B12 folate level are normal. DS: Summary Hospital Course Reason for hospitalization: 56yo male with hx of HTN and LAVON here for cough and found to have NICMP and CHF. Please see H&P for details. Hospital Course: Please see above for details of hospital course. Status at Discharge Cogn
--- NOTE | 2021-10-29 11:35 | PC.NURSE ---
Ceruloplasmin- 30; WNL. Dr. Thapa aware.
== END 2021-10-27 17:11 | disposition home or self-care (01) | DRG 286 ==
LOC: ANHED 12:36 → ANH3MEDSUR 10-19 07:53 → ANHICU 10-20 08:44 → ANHIMU 10-22 09:50 → ANH3MEDSUR 10-29 11:06 → ANHICU 10-29 11:06 → ANHIMU 10-29 11:06
PROVIDERS: Emergency Medicine; Internal Medicine; Internal Medicine Cardiovascular Disease; Nurse Practitioner Adult Health; Physician Assistant; Admitting Provider Chiropractor; Emergency Provider Nurse Practitioner Family; PCP Nurse Practitioner Adult Health; Visit Provider Internal Medicine
PROC: 4A023N7 Measurement of Cardiac Sampling and Pressure, Left Heart, Percutaneous Approach (ICD-10-PCS; CPT 93452; principal; 2021-10-22 14:00)
PROC: 4A023N7 Measurement of Cardiac Sampling and Pressure, Left Heart, Percutaneous Approach (ICD-10-PCS; 2021-10-22 14:00)
PROC: B24BZZ4 Ultrasonography of Heart with Aorta, Transesophageal (ICD-10-PCS; CPT 93312; principal; 2021-10-25 13:45)
PROC: 5A2204Z Restoration of Cardiac Rhythm, Single (ICD-10-PCS; 2021-10-25 13:45)
DX: I11.0 Hypertensive heart disease with heart failure (principal); I50.21 Acute systolic (congestive) heart failure; J18.9 Pneumonia, unspecified organism; I48.92 Unspecified atrial flutter; I95.2 Hypotension due to drugs; T50.995A Adverse effect of other drugs, medicaments and biological substances, initial encounter; R00.1 Bradycardia, unspecified; I42.8 Other cardiomyopathies; Z20.822 Contact with and (suspected) exposure to COVID-19; G47.33 Obstructive sleep apnea (adult) (pediatric); E66.01 Morbid (severe) obesity due to excess calories; Z68.35 Body mass index [BMI] 35.0-35.9, adult; K75.81 Nonalcoholic steatohepatitis (NASH); D69.59 Other secondary thrombocytopenia; I48.91 Unspecified atrial fibrillation; R74.8 Abnormal levels of other serum enzymes; F10.10 Alcohol abuse, uncomplicated; E87.5 Hyperkalemia; J34.89 Other specified disorders of nose and nasal sinuses; K21.9 Gastro-esophageal reflux disease without esophagitis
CPT/HCPCS: 36415; 36569; 36600; 71045; 71046; 76705; 80048; 80053; 80074; 80076; 81001; 82104; 82140; 82390; 82607; 82728; 82746; 82784; 82805; 82948; 83540; 83550; 83605; 83735; 83880; 84100; 84439; 84443; 84480; 84484; 85025; 85027; 85055; 85610; 85730; 86038; 86039; 86140; 92960; 93005; 93312; 93320; 93325; 93458; 94762; 96374; 96375; 99285; A9270; C1751; C1760; C1887; C1894; C8929; C9113; C9803; G0269; J0456; J0461; J0696; J1250; J1644; J1650; J1940; J2250; J2704; J7030; J7040; J7050; P9047; Q9957; U0003; U0005

== ENCOUNTER 2021-11-02 09:52 | Outpatient (CLI) | payer BC, SELFPAY ==
[2021-11-02 10:28] LABS: Alanine Aminotransferase 90 U/L (6-50); Albumin Level 4.4 g/dL (3.5-5.1); Alkaline Phosphatase 88 U/L (38-126); Anion Gap 7 mmol/L (8-16); Aspartate Amino Transferase 54 U/L (17-59); Bilirubin,Total 1.1 mg/dL (0.2-1.3); Blood Urea Nitrogen 20 mg/dL (9-20); Calcium 9.2 mg/dL (8.4-10.2); Carbon Dioxide 25 mmol/L (22-30); Chloride 108 mmol/L (98-107); Estimated Glomerular Filt Rate > 60; Glucose 111 mg/dL (65-110); Potassium 3.7 mmol/L (3.4-5.0); Sodium 140 mmol/L (137-145)
== END 2021-11-02 09:53 | disposition home or self-care (01) ==
LOC: ANHLAB 09:53
PROVIDERS: PCP Nurse Practitioner Adult Health; Visit Provider Internal Medicine
DX: I42.8 Other cardiomyopathies (principal)
CPT/HCPCS: 36415; 80053

== ENCOUNTER 2021-12-24 15:00 | Outpatient (RCR) | payer BC, SELFPAY ==
[2021-11-30 15:13] VITALS: PULSE 76
== END 2022-01-03 14:23 | disposition home or self-care (01) ==
LOC: ANHCPREHAB 15:00
PROVIDERS: PCP Nurse Practitioner Adult Health; Visit Provider Nurse Practitioner Adult Health
DX: I50.89 Other heart failure (principal)
CPT/HCPCS: 93798

== ENCOUNTER 2022-03-15 07:12 | Outpatient (CLI) | payer BC, SELFPAY ==
[2022-03-15 08:12] LABS: Anion Gap 12 mmol/L (8-16); Blood Urea Nitrogen 17 mg/dL (9-20); Calcium 8.7 mg/dL (8.4-10.2); Carbon Dioxide 23 mmol/L (22-30); Chloride 104 mmol/L (98-107); Cholesterol 134 mg/dL (0-200); Estimated Glomerular Filt Rate > 60; Glucose 110 mg/dL (65-110); HDL Direct 51 mg/dL; Sodium 139 mmol/L (137-145); Triglycerides 82 mg/dL (<150)
[2022-03-15 08:22] LABS: LDL Cholesterol Direct 59 mg/dL
== END 2022-03-15 07:13 | disposition home or self-care (01) ==
LOC: ANHLAB 07:14
PROVIDERS: PCP Nurse Practitioner Adult Health; Visit Provider Internal Medicine Cardiovascular Disease
DX: I25.10 Atherosclerotic heart disease of native coronary artery without angina pectoris (principal)
CPT/HCPCS: 36415; 80048; 80061

== ENCOUNTER 2022-06-04 07:14 | Outpatient (CLI) | payer BC, SELFPAY ==
[2022-06-04 08:01] LABS: Anion Gap 9 mmol/L (8-16); Blood Urea Nitrogen 24 mg/dL (9-20); Calcium 9.3 mg/dL (8.4-10.2); Carbon Dioxide 27 mmol/L (22-30); Chloride 101 mmol/L (98-107); Estimated Glomerular Filt Rate > 60; Glucose 130 mg/dL (65-110); Potassium 3.8 mmol/L (3.4-5.0); Sodium 137 mmol/L (137-145)
== END 2022-06-04 07:15 | disposition home or self-care (01) ==
PROVIDERS: PCP Physician Assistant; Visit Provider Internal Medicine Cardiovascular Disease
DX: I50.32 Chronic diastolic (congestive) heart failure (principal)
CPT/HCPCS: 36415; 80048

== ENCOUNTER 2022-08-09 11:54 | Outpatient (CLI) | payer BC, SELFPAY ==
[2022-08-09 12:47] LABS: Alanine Aminotransferase 43 U/L (6-50); Albumin Level 4.8 g/dL (3.5-5.1); Alkaline Phosphatase 75 U/L (38-126); Anion Gap 13 mmol/L (8-16); Aspartate Amino Transferase 32 U/L (17-59); Bilirubin,Total 0.9 mg/dL (0.2-1.3); Blood Urea Nitrogen 53 mg/dL (9-20); Calcium 9.3 mg/dL (8.4-10.2); Carbon Dioxide 28 mmol/L (22-30); Chloride 98 mmol/L (98-107); Estimated Glomerular Filt Rate 49; Glucose 141 mg/dL (65-110); Sodium 139 mmol/L (137-145)
[2022-08-09 13:06] LABS: Appearance Urine Clear (Clear); Bilirubin Urine Negative (Negative); Blood Urine Negative (Negative); Color Urine Yellow (Yellow); Glucose Urine UA Negative (Negative); Ketones Urine Negative (Negative); Leukocyte Esterase Ur Negative LEU/UL (Negative); Nitrate Urine Negative (Negative); Protein Urine Negative (Negative); Specific Grav Ur 1.011 (1.001-1.035); Urobilinogen Urine 0.2 mg/dL (<2.0); pH Urine 6.5 (5.0-9.0)
[2022-08-09 13:37] LABS: Add Urine Microscopic? NO
== END 2022-08-09 11:55 | disposition home or self-care (01) ==
LOC: ANHLAB 11:57
PROVIDERS: PCP Physician Assistant; Visit Provider Nurse Practitioner Adult Health
DX: I50.32 Chronic diastolic (congestive) heart failure (principal); R60.9 Edema, unspecified
CPT/HCPCS: 36415; 80053; 81003

== ENCOUNTER 2022-08-23 12:25 | Outpatient (CLI) | payer BC, SELFPAY ==
[2022-08-23 13:10] LABS: Anion Gap 8 mmol/L (8-16); Blood Urea Nitrogen 18 mg/dL (9-20); Calcium 9.3 mg/dL (8.4-10.2); Carbon Dioxide 25 mmol/L (22-30); Chloride 106 mmol/L (98-107); Estimated Glomerular Filt Rate > 60; Glucose 111 mg/dL (65-110); Potassium 4.2 mmol/L (3.4-5.0); Sodium 139 mmol/L (137-145)
== END 2022-08-23 12:26 | disposition home or self-care (01) ==
LOC: ANHLAB 12:27
PROVIDERS: PCP Physician Assistant; Visit Provider Nurse Practitioner Adult Health
DX: I50.32 Chronic diastolic (congestive) heart failure (principal); R60.9 Edema, unspecified
CPT/HCPCS: 36415; 80048

== ENCOUNTER 2022-10-11 02:24 | Day surgery (SDC) | payer BC, SELFPAY ==
[2022-09-24 11:46] VITALS: BMI 39.2
[2022-10-11 07:52] VITALS: BP 114/79; PULSE 84; RESP 19; TEMP 36.1; O2SAT 99
[2022-10-11] MEDS: LACTATED RINGERS 1,000 ML 150 ML IV CONT (08:04)
--- NOTE | 2022-10-11 08:24 | PM.HPGS ---
History of Present Illness History of Present Illness Consent: Risks, benefits, and alternatives have been discussed and questions answered. Patient agrees to proceed with procedure. Chief complaint: neoplasm screening Narrative: Saurabh Metcalf is a 56 year old male Referred for colon cancer screening. His last colonoscopy was 5 years ago. Review of Systems Review of Systems: All systems reviewed & are unremarkable except as noted in HPI and below PMFSH Past Medical History Medical History Hypertension LAVON (obstructive sleep apnea) Surgical History Surgical History H/O kyphoplasty S/P tendon repair right hand Family History Family History Father Heart disease Pulmonary disease Cancer Other Family history non-contributory Social History Social History Smoking status: Never smoker Alcohol intake: current Drinks per week: 12 Alcohol use details: JOSE Substance use: never Substance use type: does not use Living arrangements: with family Gender identity (if verbalized by the patient): Male Spiritual care concerns: No Meds Home Medications and Allergies Home Medications Medication Instructions Recorded Confirmed Type rivaroxaban 20 mg tablet (Xarelto) 20 mg PO DAILY@1700 #30 tabs 10/27/21 09/24/22 Rx aspirin 81 mg tablet,delayed 81 mg PO DAILY 09/24/22 09/24/22 History release (Adult Low Dose Aspirin) furosemide 80 mg tablet 80 mg PO BID 09/24/22 09/24/22 History metoprolol succinate 50 mg 50 mg PO DAILY 09/24/22 09/24/22 History tablet,extended release 24 hr rosuvastatin 5 mg tablet 5 mg PO DAILY 09/24/22 09/24/22 History sacubitril 97 mg-valsartan 103 mg 1 tablet PO BID 09/24/22 09/24/22 History tablet (Entresto) Allergies Allergy/AdvReac Type Severity Reaction Status Date / Time No Known Allergies Allergy Verified 10/11/22 07:51 Vital Signs Vital Signs - 24 hr 10/11/22 07:52 Temperature 36.1 C L Pulse Rate 84 Respiratory Rate 19 Blood Pressure 114/79 Pulse Oximetry 99 Oxygen Delivery Room Air Exam Const: General: alert Orientation/consciousness: patient oriented x3 Resp: Auscultation: clear to auscultation bilaterally Cardio: Rhythm: regular rhythm GI: GI Palp: Yes Soft to palpation and No Tenderness to palpation present (GI) Neuro: General: patient oriented x3 Assessment and Plan Assessment and plan (1) Colon cancer screening: Code(s): Z12.11 - Encounter for screening for malignant neoplasm of colon Status: Acute Assessment and Plan: Colonoscopy with possible biopsy or polypectomy or cautery or injection of substances.
--- NOTE | 2022-10-11 08:53 | P.PNAN_ITS ---
Anes - Initial Pre Proc Eval Procedure: Operation Date: 10/11/22 09:00 Proposed Procedures p Screening Colonoscopy - Fili Barahona MD Date/Time: 10/11/22 08:53 Surgeon: Fili Barahona MD Pre Op Diagnosis: neoplasm screening Patient Data Age: 56 Gender: M Height: 1.88 m Weight: 141 kg Last Vital Signs Temp 97 F L 10/11/22 07:52 Pulse 84 10/11/22 07:52 Resp 19 10/11/22 07:52 BP 114/79 10/11/22 07:52 Pulse Ox 99 10/11/22 07:52 O2 Del Method Room Air 10/11/22 07:52 Allergies Allergy/AdvReac Type Severity Reaction Status Date / Time No Known Allergies Allergy Verified 10/11/22 07:51 Home Medications Medication Instructions Recorded Confirmed Type rivaroxaban 20 mg tablet (Xarelto) 20 mg PO DAILY@1700 #30 tabs 10/27/21 09/24/22 Rx aspirin 81 mg tablet,delayed 81 mg PO DAILY 09/24/22 09/24/22 History release (Adult Low Dose Aspirin) furosemide 80 mg tablet 80 mg PO BID 09/24/22 09/24/22 History metoprolol succinate 50 mg 50 mg PO DAILY 09/24/22 09/24/22 History tablet,extended release 24 hr rosuvastatin 5 mg tablet 5 mg PO DAILY 09/24/22 09/24/22 History sacubitril 97 mg-valsartan 103 mg 1 tablet PO BID 09/24/22 09/24/22 History tablet (Entresto) Patient hx anesthesia problems: none Family hx anesthesia problems: none Results Review: All pre-operative results and documents have been reviewed as part of the pre- operative evaluation. [facility]LY [facility] Past Medical History Medical History Hypertension LAVON (obstructive sleep apnea) Surgical History Surgical History H/O kyphoplasty S/P tendon repair right hand Family History Family History Father Heart disease Pulmonary disease Cancer Other Family history non-contributory Social History Social History Smoking status: Never smoker Alcohol intake: current Drinks per week: 12 Alcohol use details: BEERS Substance use: never Substance use type: does not use Living arrangements: with family Gender identity (if verbalized by the patient): Male Spiritual care concerns: No Anes - Eval Final PreProcedure Day of Procedure 10/11/22 08:53 Patient weight: morbidly obese Heart: regular rate and rhythm Lungs: clear to auscultation Airway: Mallampati scale class III Neurological: alert and oriented Last oral intake: >/= 8 hours ASA classification: IV Emergent: no Anesthetic plan: proceed Anesthesia type and monitoring: general GIVS and standard monitoring Results Review: All pre-operative results and documents have been reviewed as part of the pre- operative evaluation. Informed Consent: The patient's anesthetic plan and its attendant risks and benefits were discussed with the patient/family/POA. Questions were solicited and answers provided to the satisfaction of the patient/family/POA.
[2022-10-11 09:13] VITALS: BP 103/61; PULSE 84; RESP 21; O2SAT 99
[2022-10-11 09:23] VITALS: BP 109/71; PULSE 75; RESP 24; O2SAT 99
[2022-10-11 09:33] VITALS: BP 112/74; PULSE 74; RESP 26; O2SAT 98
== END 2022-10-11 09:38 | disposition home or self-care (01) ==
PROVIDERS: PCP Physician Assistant; Visit Provider Internal Medicine Gastroenterology
PROC: 0DJD8ZZ Inspection of Lower Intestinal Tract, Via Natural or Artificial Opening Endoscopic (ICD-10-PCS; CPT 45378; principal; 2022-10-11 09:00)
DX: Z12.11 Encounter for screening for malignant neoplasm of colon (principal); D12.8 Benign neoplasm of rectum; I10 Essential (primary) hypertension; G47.33 Obstructive sleep apnea (adult) (pediatric)
CPT/HCPCS: 45385; 88305; J2001; J2704; J7120

== ENCOUNTER 2023-02-10 15:02 | Emergency (ER) | payer BC, SELFPAY ==
[2023-02-10 15:21] VITALS: BP 121/76; PULSE 94; RESP 20; TEMP 36.9; O2SAT 95
--- NOTE | 2023-02-10 15:21 | ED.URI ---
HPI - URI/Sore Throat General Chief Complaint: Upper Respiratory Infection Stated Complaint: sore throat,left side of face swollen Time Seen by Provider: 02/10/23 15:21 Source: patient Mode of arrival: ambulatory Limitations: no limitations History of Present Illness HPI Narrative: 57-year-old male presents with complaint of sore throat, swelling. Symptoms started this morning. Pain worse when swelling. States that he has not been able to eat all day due to pain. Pain is worse to left side, radiating to left ear and neck. Reports postnasal drainage for 1 week. Taking Claritin. Afebrile. All systems reviewed and negative except as noted above. Related Data Home Medications Medication Instructions Recorded Confirmed aspirin 81 mg tablet,delayed 81 mg PO DAILY 09/24/22 02/10/23 release (Adult Low Dose Aspirin) furosemide 80 mg tablet 80 mg PO BID 09/24/22 02/10/23 rosuvastatin 5 mg tablet 5 mg PO DAILY 09/24/22 02/10/23 sacubitril 97 mg-valsartan 103 mg 1 tablet PO BID 09/24/22 02/10/23 tablet (Entresto) carvedilol 6.25 mg tablet 6.25 mg PO DAILY 02/10/23 02/10/23 Allergies Allergy/AdvReac Type Severity Reaction Status Date / Time No Known Allergies Allergy Verified 02/10/23 15:09 Review of Systems Review of Systems: CONSTITUTIONAL: Denies fever, chills, or sweats. EYES: Denies visual changes, redness, or discharge. ENT: Denies rhinorrhea, congestion . Reports sore throat, postnasal drainage, left ear pain. CARDIOVASCULAR: Denies chest pain, palpitations, or edema. RESPIRATORY: Denies cough or dyspnea. GASTROINTESTINAL: Denies abdominal pain, nausea, vomiting, or diarrhea. GENITOURINARY: Denies dysuria or hematuria. SKIN: Denies rash or itching. MUSCULOSKELETAL: Denies back pain, joint pain, or myalgia. NEUROLOGIC: Denies headache, numbness, or weakness. PSYCHIATRIC: Denies anxiety or depression. All other systems reviewed are negative, except as documented in HPI. [facility]LY [facility], [facility] Past Medical History Medical History Hypertension LAVON (obstructive sleep apnea) Surgical History Surgical History H/O kyphoplasty S/P tendon repair right hand Family History Family History Father Heart disease Pulmonary disease Cancer Other Family history non-contributory Social History Social History Smoking status: Never smoker Alcohol intake: current Drinks per week: 12 Alcohol use details: BEERS Substance use: never Substance use type: does not use Living arrangements: with family Gender identity (if verbalized by the patient): Male Spiritual care concerns: No Comments At time of signature, agree with nursing past medical, surgical, social and family history. There is no relevant family history pertinent to the presenting complaint. Exam Narrative: GENERAL: This is a well-nourished, well-developed patient, in no apparent distress. HEAD: normocephalic, atraumatic. EYES: PERRL. Sclera clear/white. Vision is grossly intact. EARS: External ears normal, auditory canals clear and without drainage, TMs normal without perforation. Hearing grossly intact. NOSE: External nose normal with no obvious nasal discharge, nares without redness, no rhinorrhea. THROAT: Mucous membranes moist, Erythematous, tonsils 2+ bilaterally without exudates. NECK: Neck supple, non-tender without lymphadenopathy, masses or thyromegaly. CARDIOVASCULAR: Regular rate and rhythm without murmurs, gallops, or rubs. RESPIRATORY: Clear to auscultation. Breath sounds equal bilaterally. No wheezes, rales, or rhonchi. SKIN: warm, Dry, intact with no suspicious lesions or rash, good texture and turgor. NEURO: awake, alert, and oriented to person, place and time. There were no obvious focal neurologic abnor
== END 2023-02-10 15:40 | disposition home or self-care (01) ==
PROVIDERS: Emergency Provider Nurse Practitioner Family; PCP Physician Assistant
DX: J03.80 Acute tonsillitis due to other specified organisms (principal); B96.89 Other specified bacterial agents as the cause of diseases classified elsewhere; I10 Essential (primary) hypertension; Z79.82 Long term (current) use of aspirin; Z79.899 Other long term (current) drug therapy
CPT/HCPCS: 87081; 87880; 99213; G0463

== ENCOUNTER 2023-02-11 23:48 | Observation (INO) | payer BC, SELFPAY ==
--- NOTE | ~2023-02-11 | CT_ITS ---
EXAMINATION: CT soft tissue neck w con DATE: 02/12/2023 05:00 INDICATION: Left-sided throat swelling. TECHNIQUE: Computed tomography (CT) of the neck was performed with 75 mL Omnipaque-350 intravenous co ntrast. Automated exposure control and iterative reconstruction technique were employed. The dose-cece gth product was 749.48 mGy-cm. COMPARISON: None FINDINGS: There are likely changes of ocular lens replacement surgeries. There is a 13 x 12 mm left h igh internal jugular chain lymph node. There is enlargement of the left palatine tonsil with mucosal thickening in the left side of the pharynx and supraglottic larynx. There is relative hypodensity in the left palatine tonsil measuring 19 x 10 mm. There is mild mucosal thickening left maxillary sinus. The mastoid air cells are normal. There are bridging endplate osteophytes at multiple levels in the spine, consistent with diffuse idiopathic skeletal hyperostosis (DISH). There is mild chronic anterio r wedging of multiple thoracic vertebral bodies with changes of vertebroplasty at one level. IMPRESSION: 1. Enlargement of the left palatine tonsil with mucosal thickening in the left side of the pharynx an d supraglottic larynx, which may be inflammation/infection or squamous cell carcinoma. A 19 x 10 mm m ass of relative hypodensity in left palatine tonsil may be necrosis or an early abscess. If it is an abscess, it is not clear if it would be drainable. 2. Mildly enlarged left internal jugular chain lymph node. Reviewed, dictated and finalized at location E. IMPRESSION: 1. Enlargement of the left palatine tonsil with mucosal thickening in the left side of the pharynx and supraglottic larynx, which may be inflammation/infectio n or squamous cell carcinoma. A 19 x 10 mm mass of relative hypodensity in left palatine tonsil may be necrosis or an early abscess. If it is an abscess, it i s not clear if it would be drainable. 2. Mildly enlarged left internal jugular chain lymph node.
[2023-02-11 23:58] VITALS: BP 163/88; PULSE 95; RESP 16; TEMP 36.1; O2SAT 96
[2023-02-12] VITALS (14 sets, daily range): BP systolic 121–154; BP diastolic 74–100; PULSE 65–96; RESP 13–22; TEMP 36.7–37; O2SAT 93–98; BMI 37.3
--- NOTE | 2023-02-12 00:07 | PC.NURSE ---
Pt able to handle own secretions well.
[2023-02-12 01:00] LABS: Strep Group A RT-PCR NOT DETECTED (Negative)
[2023-02-12 04:25] LABS: Basophils Percent Auto 0.2 % (0.2-1.2); Eosinophils Percent Auto 0.1 % (0-4.4); Hemoglobin 16.1 g/dL (14.0-18.0); Immature Granulocyte Absolute 0.11 K/mm3 (0.00-0.031); Immature Granulocyte Percent A 0.6 % (0-0.5); Lymphocytes Absolute Auto 2.48 K/mm3 (0.9-3.2); Lymphocytes Percent Auto 12.9 % (18.3-44.2); Mean Corpuscular HGB Conc 34.3 g/dl (32-36); Mean Corpuscular Hemoglobin 32.5 pg (26-34); Mean Corpuscular Volume 94.9 fl (80-100); Mean Platelet Volume 10.9 fl (7.4-10.4); Monocytes Absolute Auto 1.7 K/mm3 (0.1-0.6); Neutrophils Absolute Auto 14.8 K/mm3 (1.3-6.7); Neutrophils Percent Auto 77.2 % (45.5-73.1); Platelet Count Result 209 k/mm3 (150-375); Red Blood Count 4.95 M/mm3 (4.6-6.20); Red Cell Distribution Width 12.7 % (11.5-14.5); White Blood Count 19.2 K/mm3 (4.5-10.0)
[2023-02-12] MEDS: SODIUM CHLORIDE 0.9% IV 1,000 ML 999 ML IV CONT (04:25)
[2023-02-12] MEDS: AMPICILLIN SULB 3 GM/NS 100 ML 3 GM/100 ML VIAL IVPB ×4 (04:25→20:12)
[2023-02-12 04:38] LABS: Alanine Aminotransferase 34 U/L (6-50); Albumin Level 4.9 g/dL (3.5-5.1); Alkaline Phosphatase 84 U/L (38-126); Anion Gap 13 mmol/L (8-16); Aspartate Amino Transferase 27 U/L (17-59); Bilirubin,Total 0.9 mg/dL (0.2-1.3); Blood Urea Nitrogen 11 mg/dL (9-20); Calcium 9.4 mg/dL (8.4-10.2); Carbon Dioxide 23 mmol/L (22-30); Chloride 101 mmol/L (98-107); Estimated CRCL calculation 152 ml/min; Estimated Glomerular Filt Rate > 60; Glucose 112 mg/dL (65-110); Potassium 3.7 mmol/L (3.4-5.0); Sodium 137 mmol/L (137-145)
[2023-02-12 04:39] LABS: Lactic Acid Reflex 1.7 mmol/L (0.7-2.0)
[2023-02-12 04:50] LABS: Monoscreen Negative (Negative); Negative Monotest Control Negative (Negative); Positive Monotest Control Positive (Positive)
[2023-02-12] MEDS: MORPHINE SULFATE (*CRX) 4 MG/ML INJ IV PUSH (05:00)
[2023-02-12 05:02] LABS: Influenza A QL RT-PCR Negative (Negative); Influenza B QL RT-PCR Negative (Negative); SARS-CoV-2 RNA PCR Negative (Negative)
[2023-02-12] MEDS: KETOROLAC 30 MG/ML VIAL (*BKC) IV PUSH (05:17)
--- NOTE | 2023-02-12 05:57 | ED.GENADULT ---
HPI - General Adult General Chief complaint: Unspecified Stated complaint: Sore thoat Time Seen by Provider: 02/12/23 03:12 History of Present Illness HPI narrative: Patient is a 57-year-old gentleman who presents the emergency department with chief complaint of sore throat. Patient reports he was recently seen in urgent care started on steroids and a penicillin-based antibiotic the patient states he is continue to have a sore throat reports it is painful whenever he swallows the patient states there is a fullness feeling in the left side of his neck patient reports no shortness of breath denies chest pain Related Data Home Medications Medication Instructions Recorded Confirmed aspirin 81 mg tablet,delayed 81 mg PO DAILY 09/24/22 02/10/23 release (Adult Low Dose Aspirin) furosemide 80 mg tablet 80 mg PO BID 09/24/22 02/10/23 rosuvastatin 5 mg tablet 5 mg PO DAILY 09/24/22 02/10/23 sacubitril 97 mg-valsartan 103 mg 1 tablet PO BID 09/24/22 02/10/23 tablet (Entresto) carvedilol 6.25 mg tablet 6.25 mg PO DAILY 02/10/23 02/10/23 Allergies Allergy/AdvReac Type Severity Reaction Status Date / Time No Known Allergies Allergy Verified 02/10/23 15:09 Review of Systems Review of Systems: A 10 system review of systems was completed on the patient and is negative except for what is stated in the HPI. Nursing and ancillary documentation was reviewed. [facility] Past Medical History Medical History Hypertension LAVON (obstructive sleep apnea) Surgical History Surgical History H/O kyphoplasty S/P tendon repair right hand Family History Family History Father Heart disease Pulmonary disease Cancer Other Family history non-contributory Social History Social History Smoking status: Never smoker Alcohol intake: current Drinks per week: 12 Alcohol use details: BEERS Substance use: never Substance use type: does not use Living arrangements: with family Gender identity (if verbalized by the patient): Male Spiritual care concerns: No Exam Narrative: GENERAL: Well-appearing, well-nourished, and in no acute distress. HEAD: Normocephalic, atraumatic. EYES: PERRLA and EOMI. ENT: Nares clear, no rhinorrhea or epistaxis. Mucous membranes moist. Significant swelling present in the oropharynx on the left tonsillar area NECK: Supple. Lymphadenopathy present CHEST: Clear to auscultation. No respiratory distress. HEART: Regular rate and rhythm. No murmur heard. Normal peripheral pulses. ABDOMEN: Soft, nontender, nondistended, normal active bowel sounds. EXTREMITIES: Normal range of motion. No edema. SKIN: Warm, dry, no rash. NEURO: No focal deficits. Alert and oriented x3. PSYCH: Normal mood and affect. Course Vital Signs Vital signs: Vital Signs Temperature 36.1 C L 02/11/23 23:58 Pulse Rate 95 02/11/23 23:58 Respiratory Rate 16 02/11/23 23:58 Blood Pressure 163/88 H 02/11/23 23:58 Pulse Oximetry 96 02/11/23 23:58 Temperature 36.8 C 02/12/23 02:43 Pulse Rate 85 02/12/23 05:17 Respiratory Rate 22 H 02/12/23 05:17 Blood Pressure 124/78 02/12/23 05:17 Pulse Oximetry 95 02/12/23 05:17 Medical Decision Making [facility] Narrative Medical decision making narrative: Differential diagnosis includes peritonsillar abscess, retropharyngeal abscess, mono Laboratory studies showed a white count of 19.2 electrolytes are within normal limits COVID was negative flu was negative strep was negative mono was negative CT soft tissue neck shows 1. Enlargement of the left palatine tonsil with mucosal thickening in the left side of the pharynx and supraglottic larynx, which may be inflammation/infection or squamous cell ca
--- NOTE | 2023-02-12 07:24 | WPDCN ---
Assessment and Plan Assessment and plan (1) Throat infection: Code(s): J02.9 - Acute pharyngitis, unspecified Status: Acute Assessment and Plan: would continue IV Unasyn or IV clindamycin while inpatient. Recommend 3 doses of Decadron 8 hours apart. Trend white count daily. If the patient feels well enough to discharge like to see him within 7 days to perform endoscopy and further evaluate the supraglottic region to rule out any more sinister process if the patient remains inpatient tomorrow would like to perform endoscopy at bedside. Would be tomorrow night. Please call me urgently for any concerns. Okay to eat from an ENT standpoint. If the patient worsens with a white count continues to trend up would recommend repeat CT scan with possible surgical intervention. If discharged recommended 10 day course of higher dose clindamycin or Augmentin. HPI Data of Consult Date/Time: 02/12/23 07:24 Requesting Physician: Kathi Parsons DO Primary Care Provider: Kayla Khan, PA Consult Narrative Narrative: Saurabh Metcalf is a 57 year old male Several days of sore throat patient placed on amoxicillin do not improve. CT shows possible Parapharyngeal infectious process / soft tissue region in the inferior tonsil supraglottic space. Could represent an abscess. patient reports feeling much better since getting a dose of Decadron and IV Unasyn in the ER. White count 19. Review of Systems Review of Systems: All systems reviewed & are unremarkable except as noted in HPI and below PMFSH Past Medical History Medical History Hypertension LAVON (obstructive sleep apnea) Surgical History Surgical History H/O kyphoplasty S/P tendon repair right hand Family History Family History Father Heart disease Pulmonary disease Cancer Other Family history non-contributory Social History Social History Smoking status: Never smoker Second hand tobacco smoke exposure: Yes (Parents were smokers, worked with smokers) Alcohol intake: current Drinks per week: 12 Alcohol use details: BEERS Substance use: never Substance use type: does not use Lack of Transportation: No Lack of Food: Never True Current Housing: I Have Housing Concerned About Future Housing: No Difficulty Paying Gas/Electric Bills: No Difficulty Paying for Meds: No Currently Unemployed: No Education: Associate Degree Difficulty w/ Childcare or Family Care: No Living arrangements: with family Gender identity (if verbalized by the patient): Male Spiritual care concerns: No Meds Home Medications and Allergies Home Medications Medication Instructions Recorded Confirmed Type aspirin 81 mg tablet,delayed 81 mg PO DAILY 09/24/22 02/12/23 History release (Adult Low Dose Aspirin) furosemide 80 mg tablet 80 mg PO BID 09/24/22 02/12/23 History rosuvastatin 5 mg tablet 5 mg PO HS 09/24/22 02/12/23 History sacubitril 97 mg-valsartan 103 mg 1 tablet PO BID 09/24/22 02/12/23 History tablet (Entresto) carvedilol 6.25 mg tablet 6.25 mg PO BID 02/10/23 02/12/23 History naltrexone 50 mg tablet 50 mg PO DAILY 02/12/23 02/12/23 History rivaroxaban 20 mg tablet (Xarelto) 20 mg PO HS 02/12/23 02/12/23 History Allergies Allergy/AdvReac Type Severity Reaction Status Date / Time No Known Allergies Allergy Verified 02/10/23 15:09 Vital Signs Vital Signs - 24 hr 02/11/23 23:58 02/12/23 02:43 02/12/23 05:17 Temperature 36.1 C L 36.8 C Pulse Rate 95 88 85 Respiratory Rate 16 15 22 H Blood Pressure 163/88 H 125/81 124/78 Pulse Oximetry 96 98 95 02/12/23 06:20 Temperature Pulse Rate 87 Respiratory Rate 15 Blood Pressure 121/82 Pulse Oximetry 98 Exam Narrative: EN
[2023-02-12] MEDS: SODIUM CHLORIDE 0.9% IV 1,000 ML 125 ML IV CONT ×2 (07:51→17:43)
--- NOTE | 2023-02-12 09:00 | ADMGEN ---
This patient, Saurabh Metcalf, was admitted to Intensive Care Unit-7. Patient/family oriented to hospital policies and general routines including ID bracelet, bed and alarms, visiting hours, pain management, procedures, bathroom and other care routines, personal items, smoking policy, room service/diet, and visiting hours. Information on how to activate the Rapid Response Team has been discussed. Patient/Family are encouraged to report perceived risks to care and to ask questions if they do not understand what they are told or what they should do.
[2023-02-12] MEDS: MAGNES & ALUM HYD/SIMETH/DIPHENHYD/LIDOCAINE 119 ML MOUTHWASH BY MOUTH ×4 (10:10→20:13)
--- NOTE | 2023-02-12 12:06 | PM.IMHP ---
H&P: HPI History of Present Illness Date/Time: 02/12/23 12:06 Chief Complaint: Sore throat Pain in left side of neck Narrative: 57-year-old male with past medical history of atrial fibrillation on Xarelto and heart failure presented to the ER with chief complaints of sore throat. He was seen in urgent care for the same reason, was given antibiotic and steroids. His symptoms continued to worsen. He started feeling pain in the left side of the neck as well as his ear. Denies any fever. No similar prior symptoms. Had a white count of 19.2. CT neck showed Enlargement of the left palatine tonsil with mucosal thickening in the left side of the pharynx and supraglottic larynx, which may be inflammation/infection or squamous cell carcinoma. A 19 x 10 mm mass of relative hypodensity in left palatine tonsil may be necrosis or an early abscess. If it is an abscess, it is not clear if it would be drainable. ENT was consulted. Started on IV ampicillin and dexamethasone. Review of Systems Review of Systems: All systems reviewed & are unremarkable except as noted in HPI and below PMFSH Past Medical History Medical History Hypertension LAVON (obstructive sleep apnea) Surgical History Surgical History H/O kyphoplasty S/P tendon repair right hand Family History Family History Father Heart disease Pulmonary disease Cancer Other Family history non-contributory Social History Social History Smoking status: Never smoker Second hand tobacco smoke exposure: Yes (Parents were smokers, worked with smokers) Alcohol intake: current Drinks per week: 12 Alcohol use details: BEERS Substance use: never Substance use type: does not use Lack of Transportation: No Lack of Food: Never True Current Housing: I Have Housing Concerned About Future Housing: No Difficulty Paying Gas/Electric Bills: No Difficulty Paying for Meds: No Currently Unemployed: No Education: Associate Degree Difficulty w/ Childcare or Family Care: No Living arrangements: with family Gender identity (if verbalized by the patient): Male Spiritual care concerns: No Meds Home Medications and Allergies Home Medications Medication Instructions Recorded Confirmed Type aspirin 81 mg tablet,delayed 81 mg PO DAILY 09/24/22 02/12/23 History release (Adult Low Dose Aspirin) furosemide 80 mg tablet 80 mg PO BID 09/24/22 02/12/23 History rosuvastatin 5 mg tablet 5 mg PO HS 09/24/22 02/12/23 History sacubitril 97 mg-valsartan 103 mg 1 tablet PO BID 09/24/22 02/12/23 History tablet (Entresto) carvedilol 6.25 mg tablet 6.25 mg PO BID 02/10/23 02/12/23 History naltrexone 50 mg tablet 50 mg PO DAILY 02/12/23 02/12/23 History rivaroxaban 20 mg tablet (Xarelto) 20 mg PO HS 02/12/23 02/12/23 History Allergies Allergy/AdvReac Type Severity Reaction Status Date / Time No Known Allergies Allergy Verified 02/10/23 15:09 Vital Signs Vital Signs - 24 hr 02/11/23 23:58 02/12/23 02:43 02/12/23 05:17 Temperature 97.0 F L 98.3 F Pulse Rate 95 88 85 Respiratory Rate 16 15 22 H Blood Pressure 163/88 H 125/81 124/78 Pulse Oximetry 96 98 95 02/12/23 06:20 Temperature Pulse Rate 87 Respiratory Rate 15 Blood Pressure 121/82 Pulse Oximetry 98 Exam Const: General: comfortable and no acute distress HENMT: Face/Nose/Sinus: Normal nares present Mouth: Yes moist mucous membranes Eyes: Sclera: sclerae normal Neck: Neck: supple Other: noted neck fullness Resp: Effort & Inspection: normal respiratory effort Auscultation: clear to auscultation bilaterally Cardio: Rate: regular rate Rhythm: regular rhythm GI: GI Palp: Yes Soft to palpation Auscultation: normal bowel sounds Skin: General skin exam: nor
[2023-02-12] MEDS: SACUBITRIL/VALSARTAN 97-103 MG TABLET 1 TAB PO (17:42)
[2023-02-12] MEDS: carvediloL 6.25 MG TABLET PO (17:42)
[2023-02-12] MEDS: CALCIUM CARBONATE (TUMS) 500 MG (200 MG ELEMENTAL) PO (18:10)
[2023-02-12] MEDS: ROSUVASTATIN 5 MG TABLET PO (20:12)
[2023-02-12] MEDS: RIVAROXABAN 20 MG TABLET PO (20:12)
[2023-02-12] MEDS: SODIUM CHLORIDE 0.9% IV 1,000 ML 75 ML IV CONT (23:03)
[2023-02-13] VITALS (10 sets, daily range): BP systolic 132–154; BP diastolic 79–89; PULSE 56–97; RESP 16–22; TEMP 36.4–36.7; O2SAT 91–97
[2023-02-13] MEDS: AMPICILLIN SULB 3 GM/NS 100 ML 3 GM/100 ML VIAL IVPB ×2 (01:57→08:58)
[2023-02-13] MEDS: MAGNES & ALUM HYD/SIMETH/DIPHENHYD/LIDOCAINE 119 ML MOUTHWASH BY MOUTH ×4 (01:57→12:23)
[2023-02-13 04:49] LABS: Basophils Percent Auto 0.1 % (0.2-1.2); Hemoglobin 13.7 g/dL (14.0-18.0); Immature Granulocyte Absolute 0.14 K/mm3 (0.00-0.031); Lymphocytes Absolute Auto 1.15 K/mm3 (0.9-3.2); Mean Corpuscular HGB Conc 33.4 g/dl (32-36); Mean Corpuscular Hemoglobin 31.9 pg (26-34); Mean Corpuscular Volume 95.6 fl (80-100); Monocytes Absolute Auto 0.6 K/mm3 (0.1-0.6); Monocytes Percent Auto 4.4 % (2.6-8.5); Neutrophils Absolute Auto 12.5 K/mm3 (1.3-6.7); Neutrophils Percent Auto 86.5 % (45.5-73.1); Platelet Count Result 163 k/mm3 (150-375); Red Blood Count 4.29 M/mm3 (4.6-6.20); Red Cell Distribution Width 12.5 % (11.5-14.5); White Blood Count 14.4 K/mm3 (4.5-10.0)
[2023-02-13 05:03] LABS: Anion Gap 7 mmol/L (8-16); Blood Urea Nitrogen 13 mg/dL (9-20); Calcium 8.8 mg/dL (8.4-10.2); Carbon Dioxide 23 mmol/L (22-30); Chloride 105 mmol/L (98-107); Estimated CRCL calculation 148 ml/min; Estimated Glomerular Filt Rate > 60; Glucose 170 mg/dL (65-110); Magnesium 2.5 mg/dL (1.6-2.3); Potassium 4.1 mmol/L (3.4-5.0); Sodium 135 mmol/L (137-145)
[2023-02-13] MEDS: ASPIRIN 81 MG ENTERIC TABLET PO (08:58)
[2023-02-13] MEDS: carvediloL 6.25 MG TABLET PO (08:58)
[2023-02-13] MEDS: SACUBITRIL/VALSARTAN 97-103 MG TABLET 1 TAB PO (08:58)
[2023-02-13] MEDS: FUROSEMIDE 40 MG TABLET 80 MG PO (09:05)
--- NOTE | 2023-02-13 11:23 | PM.DS ---
DS: Admitting Diagnosis Discharge Date 02/13/23 Admitting Diagnosis Peritonsillar abscess DS: Discharge Diagnosis Discharge Diagnosis (1) Abscess, peritonsillar: Code(s): J36 - Peritonsillar abscess Status: Acute (2) Leukocytosis: Code(s): D72.829 - Elevated white blood cell count, unspecified Status: Acute (3) Nonischemic cardiomyopathy: Code(s): I42.8 - Other cardiomyopathies Status: Acute DS: Summary Hospital Course Reason for hospitalization: Peritonsillar abscess Hospital Course: 57-year-old male with past medical history of atrial fibrillation on Xarelto and heart failure presented to the ER with chief complaints of sore throat.? He was seen in urgent care for the same reason, was given antibiotic and steroids.? His symptoms continued to worsen.? He started feeling pain in the left side of the neck as well as his ear.? Denies any fever.? No similar prior symptoms. Had a white count of 19.2.? CT neck showed?Enlargement of the left palatine tonsil with mucosal thickening in the left side of the pharynx and supraglottic larynx, which may be inflammation/infection or squamous cell carcinoma. A 19 x 10 mm mass of relative hypodensity in left palatine tonsil may be necrosis or an early abscess. If it is an abscess, it is not clear if it would be drainable.? ENT was consulted.? Started on IV ampicillin and dexamethasone. His symptoms started to improve with IV antibiotic dexamethasone and Magic mouthwash. ENT advised for outpatient follow-up in the office for possible endoscopy. Patient was stable to be discharged home on oral Augmentin. Status at Discharge Functional status at discharge: independent ambulation Overall status at discharge: patient is back to baseline Time Spent with Patient Time attestation: Total time spent providing and/or coordinating discharge services: Time spent: Greater than 30 minutes Exam Const: General: comfortable and no acute distress HENMT: Face/Nose/Sinus: Normal nares present Mouth: Yes moist mucous membranes Eyes: Sclera: sclerae normal Neck: Neck: supple Other: noted neck fullness Resp: Effort & Inspection: normal respiratory effort Auscultation: clear to auscultation bilaterally Cardio: Rate: regular rate Rhythm: regular rhythm GI: GI Palp: Yes Soft to palpation Auscultation: normal bowel sounds Skin: General skin exam: normal color Neuro: Speech: normal speech Extrem: General: normal to inspection Psych: Mental Status: mental status grossly normal DS: Data Data Completed and Pending Labs on day of discharge: Labs from last 24 hours 02/13/23 04:05 WBC 14.4 H RBC 4.29 L Hgb 13.7 L Hct 41.0 L MCV 95.6 MCH 31.9 MCHC 33.4 RDW 12.5 Plt Count 163 MPV 11.0 H Immature Gran % (Auto) 1.0 H Neut % (Auto) 86.5 H Lymph % (Auto) 8.0 L [place] % (Auto) 4.4 Eos % (Auto) 0.0 Baso % (Auto) 0.1 L Lymph # (Auto) 1.15 [place] # (Auto) 0.6 Eos # (Auto) 0.0 Baso # (Auto) 0.0 Abs Immat Gran (auto) 0.14 H Absolute Neuts (auto) 12.5 H Absolute Nucleated RBC 0.0 Nucleated RBC % 0.0 Sodium 135 L Potassium 4.1 Chloride 105 Carbon Dioxide 23 Anion Gap 7 L BUN 13 Creatinine 0.70 Estim Creat Clear Calc 148 Estimated GFR > 60 Glucose 170 H Calcium 8.8 Magnesium 2.5 H Preliminary micro results at discharge 02/12/23 04:12 Blood Culture - Preliminary Blood 02/12/23 04:12 Blood Culture - Preliminary Blood Discharge Plan Discharge Attending physician on discharge: Ivone Sheets Consulting providers: Carrillo Madsen; Harinder Tovar V.; Ivone Sheets Discharging Clinician: Ivone Sheets Anticipated Discharge Date/Time: 02/13/23 12:20 Patient Disposition: Home, Self-Care Activity: as tolerated Diet: heart healthy Patient Instructions: Antibiotic Form, Influenza Virus Vaccine (By injection), Apixaban (By mouth), Heart Failure (GEN) Stand Alone Forms: General Discharg
== END 2023-02-13 12:20 | disposition home or self-care (01) ==
LOC: ANHED 02-12 06:08 → ANHIMU 02-12 07:24 → ANHICU 02-12 08:30
PROVIDERS: Internal Medicine; Admitting Provider Internal Medicine; Emergency Provider Emergency Medicine; PCP Physician Assistant; Visit Provider Internal Medicine
DX: J36 Peritonsillar abscess (principal); B95.7 Other staphylococcus as the cause of diseases classified elsewhere; R59.9 Enlarged lymph nodes, unspecified; D72.829 Elevated white blood cell count, unspecified; I42.8 Other cardiomyopathies; I11.0 Hypertensive heart disease with heart failure; I50.20 Unspecified systolic (congestive) heart failure; Z23 Encounter for immunization; Z20.822 Contact with and (suspected) exposure to COVID-19; G47.30 Sleep apnea, unspecified; I48.91 Unspecified atrial fibrillation; F10.90 Alcohol use, unspecified, uncomplicated; Z79.01 Long term (current) use of anticoagulants; Z79.82 Long term (current) use of aspirin; Z79.899 Other long term (current) drug therapy; Z82.49 Family history of ischemic heart disease and other diseases of the circulatory system
CPT/HCPCS: 36415; 70491; 80048; 80053; 83605; 83735; 85025; 86308; 87040; 87077; 87636; 87651; 90471; 90686; 96361; 96365; 96366; 96375; 96376; 99285; A9270; G0008; G0378; J0295; J1100; J1885; J2270; J7030; Q9967

== ENCOUNTER 2023-02-13 14:26 | Inpatient (IN) | payer BC, SELFPAY ==
[2023-02-13 14:28] VITALS: BP 138/81; PULSE 77; RESP 18; TEMP 37.1; O2SAT 95
--- NOTE | 2023-02-13 16:21 | ED.GENADULT ---
HPI - General Adult General Chief complaint: Recheck/Abnormal Lab/Rx Stated complaint: sent by Dr Garcia for + cultures Time Seen by Provider: 02/13/23 15:29 History of Present Illness HPI narrative: Saurabh Metcalf is a 57 y/o male who presents with reports of being evaluated here 2 days ago for a paratonsillar abscess and admitted for IV antibiotics and monitoring. He was d/c today and called back to return because he had positive blood culture results. Patient reports feeling better/ well/ no fevers/ shortness of breath. He states that his sore throat is improved Related Data Home Medications Medication Instructions Recorded Confirmed aspirin 81 mg tablet,delayed 81 mg PO DAILY 09/24/22 02/12/23 release (Adult Low Dose Aspirin) furosemide 80 mg tablet 80 mg PO BID 09/24/22 02/12/23 rosuvastatin 5 mg tablet 5 mg PO HS 09/24/22 02/12/23 sacubitril 97 mg-valsartan 103 mg 1 tablet PO BID 09/24/22 02/12/23 tablet (Entresto) carvedilol 6.25 mg tablet 6.25 mg PO BID 02/10/23 02/12/23 naltrexone 50 mg tablet 50 mg PO DAILY 02/12/23 02/12/23 rivaroxaban 20 mg tablet (Xarelto) 20 mg PO HS 02/12/23 02/12/23 Allergies Allergy/AdvReac Type Severity Reaction Status Date / Time No Known Allergies Allergy Verified 02/10/23 15:09 Review of Systems Review of Systems: CONSTITUTIONAL: Denies fever, chills, or sweats. EYES: Denies visual changes, redness, or discharge. ENT: Denies rhinorrhea, congestion, recent sore throat that is improving at this time CARDIOVASCULAR: Denies chest pain, palpitations, or edema. RESPIRATORY: Denies cough or dyspnea. GASTROINTESTINAL: Denies abdominal pain, nausea, vomiting, or diarrhea. GENITOURINARY: Denies dysuria or hematuria. SKIN: Denies rash or itching. MUSCULOSKELETAL: Denies back pain, joint pain, or myalgia. NEUROLOGIC: Denies headache, numbness, dizziness, or weakness. PSYCHIATRIC: Denies anxiety or depression. [facility] Past Medical History Medical History Hypertension LAVON (obstructive sleep apnea) Surgical History Surgical History H/O kyphoplasty S/P tendon repair right hand Family History Family History Father Heart disease Pulmonary disease Cancer Other Family history non-contributory Social History Social History Smoking status: Never smoker Second hand tobacco smoke exposure: Yes (Parents were smokers, worked with smokers) Alcohol intake: current Drinks per week: 12 Alcohol use details: BEERS Substance use: never Substance use type: does not use Lack of Transportation: No Lack of Food: Never True Current Housing: I Have Housing Concerned About Future Housing: No Difficulty Paying Gas/Electric Bills: No Difficulty Paying for Meds: No Currently Unemployed: No Education: Associate Degree Difficulty w/ Childcare or Family Care: No Living arrangements: with family Gender identity (if verbalized by the patient): Male Spiritual care concerns: No Exam Narrative: GENERAL: Well-appearing, well-nourished, and in no acute distress. HEAD: Normocephalic, atraumatic. EYES: PERRLA and EOMI. ENT: Nares clear, no rhinorrhea or epistaxis. Mucous membranes moist. Oropharynx without tonsillar hypertrophy exudate or other lesions. NECK: Supple. No adenopathy or masses. No carotid bruits or JVD CHEST: Clear to auscultation. No respiratory distress. No wheezes rales or rhonchi HEART: Regular rate and rhythm. No murmur heard. Normal peripheral pulses. ABDOMEN: Soft, nontender, nondistended, normal active bowel sounds. EXTREMITIES: Normal range of motion. No edema. SKIN: Warm, dry, no rash. NEURO: No focal deficits. Alert and oriented x3. PSYCH: Normal mood and affect. Course Vital Signs Vital signs: Vital Signs
[2023-02-13 16:52] LABS: Basophils Percent Auto 0.1 % (0.2-1.2); Hematocrit 45.8 % (42.0-52.0); Hemoglobin 15.3 g/dL (14.0-18.0); Immature Granulocyte Absolute 0.14 K/mm3 (0.00-0.031); Immature Granulocyte Percent A 0.7 % (0-0.5); Lymphocytes Absolute Auto 1.34 K/mm3 (0.9-3.2); Lymphocytes Percent Auto 6.9 % (18.3-44.2); Mean Corpuscular HGB Conc 33.4 g/dl (32-36); Mean Corpuscular Hemoglobin 32.2 pg (26-34); Mean Corpuscular Volume 96.4 fl (80-100); Mean Platelet Volume 10.8 fl (7.4-10.4); Monocytes Absolute Auto 1.5 K/mm3 (0.1-0.6); Monocytes Percent Auto 7.8 % (2.6-8.5); Neutrophils Absolute Auto 16.4 K/mm3 (1.3-6.7); Neutrophils Percent Auto 84.5 % (45.5-73.1); Platelet Count Result 207 k/mm3 (150-375); Red Blood Count 4.75 M/mm3 (4.6-6.20); Red Cell Distribution Width 12.6 % (11.5-14.5); White Blood Count 19.5 K/mm3 (4.5-10.0)
[2023-02-13 17:06] LABS: Alanine Aminotransferase 51 U/L (6-50); Albumin Level 4.5 g/dL (3.5-5.1); Alkaline Phosphatase 74 U/L (38-126); Anion Gap 12 mmol/L (8-16); Aspartate Amino Transferase 42 U/L (17-59); Bilirubin,Total 0.6 mg/dL (0.2-1.3); Blood Urea Nitrogen 17 mg/dL (9-20); Calcium 9.7 mg/dL (8.4-10.2); Carbon Dioxide 19 mmol/L (22-30); Chloride 106 mmol/L (98-107); Estimated CRCL calculation 149 ml/min; Estimated Glomerular Filt Rate > 60; Glucose 132 mg/dL (65-110); Potassium 4.1 mmol/L (3.4-5.0); Sodium 137 mmol/L (137-145)
[2023-02-13 17:11] LABS: Lactic Acid Reflex 1.9 mmol/L (0.7-2.0)
[2023-02-13] MEDS: VANCOMYCIN 1,250 MG/NS 250 ML 1,250 MG/250 ML BAG 166.67 MG IVPB ×2 (18:35→21:30)
[2023-02-13 20:31] VITALS: BP 136/88; PULSE 83; RESP 16; O2SAT 97
[2023-02-13 21:21] VITALS: BP 144/77; PULSE 84; RESP 18; TEMP 36.2; O2SAT 97; BMI 39.9
--- NOTE | 2023-02-13 21:22 | ADMGEN ---
This patient, Saurabh Metcalf, was admitted to Medical Room 348-01. Patient/family oriented to hospital policies and general routines including ID bracelet, bed and alarms, visiting hours, pain management, procedures, bathroom and other care routines, personal items, smoking policy, room service/diet, and visiting hours. Information on how to activate the Rapid Response Team has been discussed. Patient/Family are encouraged to report perceived risks to care and to ask questions if they do not understand what they are told or what they should do.
[2023-02-13 21:30] VITALS: PULSE 84; O2SAT 97
--- NOTE | 2023-02-13 22:34 | PM.IMHP ---
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 Patient recently admitted on 02/12 for sore throat, found to have peritonsillar abscess. Patient started having symptoms on Saturday 02/10: sore throat and pain with swallowing. sought care at a local urgent care and was started on steroids and penicillin-based antibiotic. Patient's symptoms did not improve, began experiencing fullness on the left side of his neck without shortness of breath. CT showed a 19 x 10 mm mass of the left palatine tonsil and mildly enlarged left internal jugular lymph node. 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 I&D not required. Today patient is feeling well. He denies sore throat, fever, fatigue, body aches, chills. Continuing to have some tenderness to left lymph node. Review of Systems Review of Systems: All systems reviewed & are unremarkable except as noted in HPI and below PMFSH Past Medical History Medical History Hypertension LAVON (obstructive sleep apnea) Surgical History Surgical History H/O kyphoplasty S/P tendon repair right hand Family History Family History Father Heart disease Pulmonary disease Cancer Other Family history non-contributory Social History Social History Smoking status: Never smoker Second hand tobacco smoke exposure: Yes (Parents were smokers, worked with smokers) Alcohol intake: current Drinks per week: 12 Alcohol use details: BEERS Substance use: never Substance use type: does not use Lack of Transportation: No Lack of Food: Never True Current Housing: I Have Housing Concerned About Future Housing: No Difficulty Paying Gas/Electric Bills: No Difficulty Paying for Meds: No Currently Unemployed: No Education: Associate Degree Difficulty w/ Childcare or Family Care: No Living arrangements: with family Gender identity (if verbalized by the patient): Male Spiritual care concerns: No Meds Home Medications and Allergies Home Medications Medication Instructions Recorded Confirmed Type aspirin 81 mg tablet,delayed 81 mg PO QAM 09/24/22 02/13/23 History release (Adult Low Dose Aspirin) furosemide 80 mg tablet 80 mg PO BID 09/24/22 02/13/23 History rosuvastatin 5 mg tablet 5 mg PO HS 09/24/22 02/13/23 History sacubitril 97 mg-valsartan 103 mg 1 tablet PO BID 09/24/22 02/13/23 History tablet (Entresto) carvedilol 6.25 mg tablet 6.25 mg PO BID 02/10/23 02/13/23 History naltrexone 50 mg tablet 50 mg PO DAILY 02/12/23 02/13/23 History rivaroxaban 20 mg tablet (Xarelto) 20 mg PO HS 02/12/23 02/13/23 History Magic Mouthwash 50 mL suspension 10 ml PO TID #50 mL 02/13/23 02/13/23 Rx Allergies Allergy/AdvReac Type Severity Reaction Status Date / Time No Known Allergies Allergy Verified 02/10/23 15:09 Vital Signs Vital Signs - 24 hr 02/13/23 14:28 02/13/23 20:31 02/13/23 21:21 Temperature 98.8 F 97.2 F L Pulse Rate 77 83 84 Respiratory Rate 18 16 18 Blood Pressure 138/81 136/88 144/77 H Pulse Oximetry 95 97 97 Oxygen Delivery Room Air Exam Const: General: comfortable and no acute distress HENMT: Face/Nose/Sinus: Normal nares present Mouth: Yes moist mucous membranes Other: tonsils grade 2, no erythema or exudate. no lymphadenopathy, mild tenderness to left tonsillar node. no abnormalities seen on oral mucosa. Eyes: General: appearance normal, both eyes and all related structures Sclera: sclerae normal Pupils: Equal, round and reactive pupils present Resp: Effort & Inspection: normal respiratory eff
[2023-02-14 01:35] LABS: Hemoglobin A1C 5.7 % (<5.7)
[2023-02-14 05:08] VITALS: BP 146/76; PULSE 57; RESP 16; TEMP 36.4; O2SAT 97
[2023-02-14] MEDS: MAGNES & ALUM HYD/SIMETH/DIPHENHYD/LIDOCAINE 119 ML MOUTHWASH BY MOUTH ×4 (05:10→21:14)
[2023-02-14 05:41] LABS: Basophils Percent Auto 0.1 % (0.2-1.2); Eosinophils Percent Auto 0.1 % (0-4.4); Hematocrit 43.7 % (42.0-52.0); Hemoglobin 14.4 g/dL (14.0-18.0); Immature Granulocyte Absolute 0.14 K/mm3 (0.00-0.031); Lymphocytes Absolute Auto 1.91 K/mm3 (0.9-3.2); Lymphocytes Percent Auto 13.9 % (18.3-44.2); Mean Corpuscular Hemoglobin 31.5 pg (26-34); Mean Corpuscular Volume 95.6 fl (80-100); Mean Platelet Volume 10.4 fl (7.4-10.4); Monocytes Percent Auto 7.6 % (2.6-8.5); Neutrophils Absolute Auto 10.6 K/mm3 (1.3-6.7); Neutrophils Percent Auto 77.3 % (45.5-73.1); Platelet Count Result 177 k/mm3 (150-375); Red Blood Count 4.57 M/mm3 (4.6-6.20); Red Cell Distribution Width 12.8 % (11.5-14.5); White Blood Count 13.7 K/mm3 (4.5-10.0)
[2023-02-14 05:53] LABS: Anion Gap 7 mmol/L (8-16); Blood Urea Nitrogen 19 mg/dL (9-20); Calcium 8.8 mg/dL (8.4-10.2); Carbon Dioxide 25 mmol/L (22-30); Chloride 106 mmol/L (98-107); Estimated CRCL calculation 136 ml/min; Estimated Glomerular Filt Rate > 60; Glucose 127 mg/dL (65-110); Potassium 3.9 mmol/L (3.4-5.0); Sodium 138 mmol/L (137-145)
[2023-02-14 09:16] VITALS: PULSE 68
[2023-02-14] MEDS: ASPIRIN 81 MG ENTERIC TABLET PO (09:16)
[2023-02-14] MEDS: SACUBITRIL/VALSARTAN 97-103 MG TABLET 1 TAB PO ×2 (09:16→21:14)
[2023-02-14] MEDS: carvediloL 6.25 MG TABLET PO ×2 (09:16→21:13)
[2023-02-14] MEDS: FUROSEMIDE 80 MG TABLET PO ×2 (09:16→18:03)
--- NOTE | 2023-02-14 09:54 | PM.IMPN ---
Progress Note: A&P Assessment and Plan (1) Blood bacterial culture positive: Code(s): R78.81 - Bacteremia Status: Acute (2) Abscess, peritonsillar: Code(s): J36 - Peritonsillar abscess Status: Acute (3) Leukocytosis: Code(s): D72.829 - Elevated white blood cell count, unspecified Status: Acute (4) Throat infection: Code(s): J02.9 - Acute pharyngitis, unspecified Status: Acute Plan 57-year-old male with past medical history of atrial fibrillation on Xarelto and heart failure presented to the ER with chief complaints of sore throat.? He was seen in urgent care for the same reason, was given antibiotic and steroids.? His symptoms continued to worsen.? He started feeling pain in the left side of the neck as well as his ear.??CT neck showed?Enlargement of the left palatine tonsil with mucosal thickening in the left side of the pharynx and supraglottic larynx, which may be inflammation/infection or squamous cell carcinoma. A 19 x 10 mm mass of relative hypodensity in left palatine tonsil may be necrosis or an early abscess. Was started on IV Unasyn, leukocytosis had started to improve. Was seen by ENT. Received few doses of dexamethasone. Symptoms had started to resolved. Was discharged yesterday with plan to follow up with ENT as an outpatient. Was called back because of positive blood culture(1 anaerobic bottle was growing Gram-positive cocci clusters) 1. Pain tonsillar abscess+ bacteremia: Await blood cultures from yesterday Blood cultures from previous admission are still cooking Continue on vancomycin Recheck CBC in a.m. ENT was reconsulted Continue with Magic mouthwash 2.. History of atrial fibrillation: Continue with Coreg, Xarelto 3. History of nonischemic cardiomyopathy: Continue with Lasix, Continue with Entresto 4. DVT prophylaxis:? Currently on Xarelto 5. Code status: Full 6. Disposition pending blood culture finalization Time Spent With Patient Time with patient: 15 - 25 minutes Subjective Date/time seen: 02/14/23 09:54 Interval history: Patient was discharged yesterday on oral antibiotic for peritonsillar abscess, was readmitted 2 hours later due to positive blood culture. Patient has no complaints at the moment Review of Systems Review of Systems: All systems reviewed & are unremarkable except as noted in HPI and below Exam Const: General: comfortable and no acute distress HENMT: Mouth: Yes moist mucous membranes Eyes: Sclera: sclerae normal Neck: Neck: supple Resp: Effort & Inspection: normal respiratory effort Auscultation: clear to auscultation bilaterally Cardio: Rate: regular rate Rhythm: regular rhythm GI: GI Palp: Yes Soft to palpation Auscultation: normal bowel sounds Skin: General skin exam: normal color Neuro: Speech: normal speech Extrem: General: normal to inspection Objective Data Vital Signs Vital Signs: Vital Signs - 24 hr 02/13/23 14:28 02/13/23 20:31 02/13/23 21:21 Temperature 98.8 F 97.2 F L Pulse Rate 77 83 84 Respiratory Rate 18 16 18 Blood Pressure 138/81 136/88 144/77 H Pulse Oximetry 95 97 97 Oxygen Delivery Room Air 02/13/23 21:30 02/14/23 01:30 02/14/23 05:08 Temperature 97.6 F Pulse Rate 84 57 L Respiratory Rate 16 Blood Pressure 146/76 H Pulse Oximetry 97 97 Oxygen Delivery CPAP CPAP 02/14/23 09:16 Temperature Pulse Rate 68 Respiratory Rate Blood Pressure Pulse Oximetry Oxygen Delivery Intake/Output Intake/Output: Intake & Output 02/11/23 02/12/23 02/13/23 02/14/23 23:59 23:59 23:59 23:59 Intake Total 500 550 Output Total 325 Balance 500 225 Meds/Results Medications: Active Medications Generic Name Dose Route Start Last Admin Trade Name Freq PRN Reason Stop Dose Admin Acetaminophen 650 mg 02/13/23 23:01 Acetaminophen 325 Mg Tablet PO Q4H PRN Mild Pain (1-3) or Fever Aspirin 81 mg 02/14/23 09:00
[2023-02-14 13:13] VITALS: O2SAT 96
[2023-02-14 14:00] VITALS: BP 127/70; PULSE 98; RESP 14; TEMP 37; O2SAT 97
--- NOTE | 2023-02-14 17:09 | WPDPROCEDUR ---
Procedures Laryngoscopy Laryngoscopy Comments: Bilateral nasal passages coated with Afrin 4% lidocaine. Flexible scope passed. Nose is boggy no polyps no purulence at all nasopharynx looks normal the pharynx looks normal the larynx looks normal. The only notable supple finding in the pharynx was left inferior tonsillar pole mild erythema. There is no purulence no edema no masses no lesions no ulcerations. All anatomic sub sites reviewed.
--- NOTE | 2023-02-14 17:10 | PM.PNGS ---
Progress Note: A&P Assessment and Plan (1) Throat infection: Code(s): J02.9 - Acute pharyngitis, unspecified Status: Acute Assessment and Plan: No evidence of peritonsillar abscess. The tonsil does have cheeselike debris within it. Flexible laryngoscopy does not demonstrate any abscess or any mass or abnormalities in the patient's airway other than a mildly erythematous left inferior tonsillar pole. The patient has much improved exam from several days ago and I last looked at him. I would definitely continue antibiotics while inpatient and discharged at least 7 day course. The patient can follow-up with me as needed for any all otolaryngologic symptoms. (2) Abscess, peritonsillar: Code(s): J36 - Peritonsillar abscess Status: Acute Subjective Subjective Date/Time Seen: 02/14/23 17:10 Interval history: Patient reports feeling well. White count jumped 19. Blood cultures positive. Review of Systems Review of Systems: All systems reviewed & are unremarkable except as noted in HPI and below Exam Narrative: Normal ENT exam of left tonsil slightly erythematous same size as the right now. When palpated cheeselike debris emanates from the tonsillar crypts. There is no fluctuance or palpable fluid in the peritonsillar space on the left. Objective Data Vital Signs Vital Signs: Vital Signs - 24 hr 02/13/23 20:31 02/13/23 21:21 02/13/23 21:30 Temperature 36.2 C L Pulse Rate 83 84 84 Respiratory Rate 16 18 Blood Pressure 136/88 144/77 H Pulse Oximetry 97 97 97 Oxygen Delivery CPAP 02/14/23 01:30 02/14/23 05:08 02/14/23 09:16 Temperature 36.4 C Pulse Rate 57 L 68 Respiratory Rate 16 Blood Pressure 146/76 H Pulse Oximetry 97 Oxygen Delivery CPAP 02/14/23 13:13 02/14/23 14:00 Temperature 37.0 C Pulse Rate 98 Respiratory Rate 14 Blood Pressure 127/70 Pulse Oximetry 96 97 Oxygen Delivery Room Air Intake/Output Intake/Output: Intake & Output 02/11/23 02/12/23 02/13/23 02/14/23 23:59 23:59 23:59 23:59 Intake Total 500 1270 Output Total 325 Balance 500 945 Meds/Results Medications: Active Medications Generic Name Dose Route Start Last Admin Trade Name Freq PRN Reason Stop Dose Admin Acetaminophen 650 mg 02/13/23 23:01 Acetaminophen 325 Mg Tablet PO Q4H PRN Mild Pain (1-3) or Fever Aspirin 81 mg 02/14/23 09:00 02/14/23 09:16 Aspirin 81 Mg Enteric Tablet PO 81 mg QAM ESTEE Administration Carvedilol 6.25 mg 02/14/23 09:00 02/14/23 09:16 Carvedilol 6.25 Mg Tablet PO 6.25 mg Q12HR ESTEE Administration Furosemide 80 mg 02/14/23 09:00 02/14/23 09:16 Furosemide 80 Mg Tablet PO 80 mg BID ESTEE Administration Vancomycin HCl 1,500 mg in 500 mls @ 250 mls/hr 02/14/23 09:00 02/14/23 09:17 Vancomycin 1,500 Mg/D5w 500 Ml IVPB 250 mls/hr Q12H ESTEE Administration Lidocaine/Diphenhydr/Alum/Mg/Simeth 5 ml 02/14/23 05:00 02/14/23 09:23 Magnes & Alum Hyd/Simeth/Diphenhyd/Lidocaine 119 Ml Mouthwash BY MOUTH 03/16/23 04:59 5 ml Q4HWA ESTEE Administration Rivaroxaban 20 mg 02/14/23 21:00 Rivaroxaban 20 Mg Tablet PO HS ESTEE Rosuvastatin Calcium 5 mg 02/14/23 21:00 Rosuvastatin 5 Mg Tablet PO HS ESTEE Sacubitril/Valsartan 1 tab 02/14/23 09:00 02/14/23 09:16 Sacubitril/Valsartan 97-103 Mg Tablet PO 1 tab Q12HR ESTEE Administration Labs Labs: Laboratory Results - last 24 hr 02/13/23 02/14/23 02/14/23 16:42 00:15 05:30 WBC 13.7 H RBC 4.57 L Hgb 14.4 Hct 43.7 MCV 95.6 MCH 31.5 MCHC 33.0 RDW 12.8 Plt Count 177 MPV 10.4 Immature Gran % (Auto) 1.0 H Neut % (Auto) 77.3 H Lymph % (Auto) 13.9 L [place] % (Auto) 7.6 Eos % (Auto) 0.1 Baso % (Auto) 0.1 L Lymph # (Auto) 1.91 [place] # (Auto) 1.0 H Eos # (Auto) 0.0 Baso # (Auto) 0.0 Abs Immat Gran (auto) 0.14 H Absolute Neuts (auto)
[2023-02-14 20:38] VITALS: BP 128/81; PULSE 60; RESP 18; TEMP 36.7; O2SAT 98
[2023-02-14 21:13] VITALS: PULSE 60
[2023-02-14] MEDS: ROSUVASTATIN 5 MG TABLET PO (21:13)
[2023-02-14] MEDS: RIVAROXABAN 20 MG TABLET PO (21:14)
[2023-02-15 06:19] VITALS: BP 130/74; PULSE 60; RESP 18; TEMP 36.5; O2SAT 99
[2023-02-15] MEDS: MAGNES & ALUM HYD/SIMETH/DIPHENHYD/LIDOCAINE 119 ML MOUTHWASH BY MOUTH ×2 (06:29→08:28)
[2023-02-15 08:05] LABS: Basophils Percent Auto 0.1 % (0.2-1.2); Eosinophils Absolute Auto 0.2 K/mm3 (0-0.3); Eosinophils Percent Auto 1.7 % (0-4.4); Hematocrit 41.8 % (42.0-52.0); Hemoglobin 13.8 g/dL (14.0-18.0); Immature Granulocyte Absolute 0.06 K/mm3 (0.00-0.031); Immature Granulocyte Percent A 0.7 % (0-0.5); Lymphocytes Percent Auto 32.6 % (18.3-44.2); Mean Corpuscular Hemoglobin 31.3 pg (26-34); Mean Corpuscular Volume 94.8 fl (80-100); Mean Platelet Volume 10.2 fl (7.4-10.4); Monocytes Absolute Auto 0.9 K/mm3 (0.1-0.6); Monocytes Percent Auto 10.9 % (2.6-8.5); Neutrophils Absolute Auto 4.6 K/mm3 (1.3-6.7); Platelet Count Result 170 k/mm3 (150-375); Red Blood Count 4.41 M/mm3 (4.6-6.20); Red Cell Distribution Width 12.8 % (11.5-14.5); White Blood Count 8.6 K/mm3 (4.5-10.0)
[2023-02-15 08:25] LABS: Anion Gap 3 mmol/L (8-16); Blood Urea Nitrogen 17 mg/dL (9-20); Calcium 8.2 mg/dL (8.4-10.2); Carbon Dioxide 28 mmol/L (22-30); Chloride 104 mmol/L (98-107); Estimated CRCL calculation 122 ml/min; Estimated Glomerular Filt Rate > 60; Glucose 94 mg/dL (65-110); Potassium 3.9 mmol/L (3.4-5.0); Sodium 135 mmol/L (137-145)
[2023-02-15 08:26] LABS: Vancomycin Trough 9.3 ug/mL (10.0-20.0)
[2023-02-15 08:28] VITALS: PULSE 68
[2023-02-15] MEDS: FUROSEMIDE 80 MG TABLET PO (08:28)
[2023-02-15] MEDS: carvediloL 6.25 MG TABLET PO (08:28)
[2023-02-15] MEDS: ASPIRIN 81 MG ENTERIC TABLET PO (08:28)
[2023-02-15] MEDS: SACUBITRIL/VALSARTAN 97-103 MG TABLET 1 TAB PO (08:28)
[2023-02-15] MEDS: AMOXICILLIN/CLAVULANATE K 875-125 MG TAB 1 TABLET PO (08:28)
--- NOTE | 2023-02-15 09:35 | PM.DS ---
DS: Admitting Diagnosis Discharge Date 02/15/2023 Admitting Diagnosis bacteremia, blood culture positive DS: Discharge Diagnosis Discharge Diagnosis (1) Blood bacterial culture positive: Code(s): R78.81 - Bacteremia Status: Acute (2) Throat infection: Code(s): J02.9 - Acute pharyngitis, unspecified Status: Acute (3) Leukocytosis: Code(s): D72.829 - Elevated white blood cell count, unspecified Status: Acute (4) Obstructive sleep apnea: Code(s): G47.33 - Obstructive sleep apnea (adult) (pediatric) Status: Acute DS: Summary Hospital Course Reason for hospitalization: patient was readmitted to the hospital couple hours after discharge when blood culture was positive for Gram-positive cocci in clusters Hospital Course: Patient had been in in the hospital due to tonsillitis/ concern for peritonsillar abscess and was followed by ENT Dr. Madsen. He was being discharged with prescription for Magic mouthwash and Augmentin when shortly after discharge blood cultures returned positive in 1 bottle for Gram-positive cocci in clusters. Patient was called back to the hospital and readmitted. During this 2nd admission Dr. Madsen again saw patient completed a scope and was expressing cheese like material from tonsil. Patient reports that he is feeling much better. He was admitted on vancomycin. Blood cultures subsequently identified as Staph epidermis and was only positive in 1 bottle. This was suspected to be contaminant. Vancomycin was discontinued patient was placed back on Augmentin 3 times daily. Patient reported that he felt great and was going to leave whether he was discharged or goes against medical advice. Patient discharged with prescription for Augmentin 3 times daily for another 8 days. He also has prescription for Magic mouthwash to pick out hand at his preferred pharmacy. Status at Discharge Cognitive/behavioral status at discharge: Awake alert oriented and very pleasant Functional status at discharge: independent ambulation Overall status at discharge: patient is back to baseline Time Spent with Patient Time attestation: Total time spent providing and/or coordinating discharge services: 33 minutes Time spent: Greater than 30 minutes Specific discharge activities: chart review from current and previous visit as well as specialist documentation Exam Const: General: comfortable and no acute distress HENMT: Face/Nose/Sinus: Normal nares present Mouth: Yes moist mucous membranes Other: tonsils grade 2, no erythema or exudate. no lymphadenopathy, mild tenderness to left tonsillar node. no abnormalities seen on oral mucosa. Eyes: General: appearance normal, both eyes and all related structures Sclera: sclerae normal Pupils: Equal, round and reactive pupils present Neck: Neck: supple Resp: Effort & Inspection: normal respiratory effort Auscultation: clear to auscultation bilaterally Cardio: Rate: regular rate Rhythm: regular rhythm Other: S1 and S2 present without murmur, rub, ectopy GI: Auscultation: normal bowel sounds Skin: General skin exam: normal color and no rashes or lesions noted Wounds: no wounds Neuro: Cranial nerves: Yes Equal, round and reactive pupils present Speech: normal speech Sensory Exam: normal sensation Other: a/Ox4 Extrem: General: normal to inspection Psych: Mental Status: mental status grossly normal Affect: normal affect Other: pleasant, interactive. DS: Data Data Completed and Pending Pending studies at discharge: Repeat blood cultures, negative to date Labs on day of discharge: Labs from last 24 hours 02/15/23 08:00 WBC 8.6 RBC 4.41 L Hgb 13.8 L Hct 41.8 L MCV 94.8 MCH 31.3 MCHC 33.0 RDW 12.8 Plt Count 170 MPV 10.2 Immature Gran % (Auto) 0.7 H Neut % (Auto) 54.0 Lymph % (Auto) 32.6 Mcculloch % (Auto) 10.9 H Eos % (Auto) 1.7 Baso % (Auto) 0.1 L Lymph # (Auto) 2.80 Mon
== END 2023-02-15 11:16 | disposition home or self-care (01) | DRG 872 ==
LOC: ANHED 17:11 → ANH3MED 20:02
PROVIDERS: Internal Medicine; Student in an Organized Health Care Education/Training Program; Admitting Provider Hospitalist; Emergency Provider Nurse Practitioner Family; PCP Physician Assistant; Visit Provider Nurse Practitioner
DX: R78.81 Bacteremia (principal); I42.8 Other cardiomyopathies; J02.9 Acute pharyngitis, unspecified; D72.829 Elevated white blood cell count, unspecified; G47.33 Obstructive sleep apnea (adult) (pediatric); I10 Essential (primary) hypertension; I48.91 Unspecified atrial fibrillation; E78.5 Hyperlipidemia, unspecified; Z79.01 Long term (current) use of anticoagulants; Z23 Encounter for immunization
CPT/HCPCS: 36415; 70491; 80048; 80053; 80202; 83036; 83605; 83735; 85025; 86308; 87040; 87077; 87081; 87636; 87651; 87880; 90471; 90686; 96361; 96365; 96366; 96375; 96376; 99213; 99285; A9270; G0008; G0378; G0463; J0295; J1100; J1885; J2270; J3370; J7030; Q9967

== ENCOUNTER 2023-07-11 06:56 | Outpatient (CLI) | payer BC, SELFPAY ==
[2023-07-11 08:04] LABS: Basophils Percent Auto 0.4 % (0.2-1.2); Eosinophils Absolute Auto 0.1 K/mm3 (0-0.3); Eosinophils Percent Auto 1.5 % (0-4.4); Hematocrit 48.6 % (42.0-52.0); Hemoglobin 15.5 g/dL (14.0-18.0); Immature Granulocyte Absolute 0.01 K/mm3 (0.00-0.031); Immature Granulocyte Percent A 0.1 % (0-0.5); Lymphocytes Absolute Auto 1.89 K/mm3 (0.9-3.2); Lymphocytes Percent Auto 27.8 % (18.3-44.2); Mean Corpuscular HGB Conc 31.9 g/dl (32-36); Mean Corpuscular Hemoglobin 30.7 pg (26-34); Mean Corpuscular Volume 96.2 fl (80-100); Mean Platelet Volume 10.6 fl (7.4-10.4); Monocytes Absolute Auto 0.6 K/mm3 (0.1-0.6); Monocytes Percent Auto 8.7 % (2.6-8.5); Neutrophils Absolute Auto 4.2 K/mm3 (1.3-6.7); Neutrophils Percent Auto 61.5 % (45.5-73.1); Platelet Count Result 180 k/mm3 (150-375); Red Blood Count 5.05 M/mm3 (4.6-6.20); Red Cell Distribution Width 13.2 % (11.5-14.5); White Blood Count 6.8 K/mm3 (4.5-10.0)
[2023-07-11 08:16] LABS: Alanine Aminotransferase 57 U/L (6-50); Albumin Level 4.6 g/dL (3.5-5.1); Alkaline Phosphatase 72 U/L (38-126); Anion Gap 9 mmol/L (8-16); Aspartate Amino Transferase 39 U/L (17-59); Blood Urea Nitrogen 16 mg/dL (9-20); Calcium 9.7 mg/dL (8.4-10.2); Carbon Dioxide 25 mmol/L (22-30); Chloride 106 mmol/L (98-107); Cholesterol 182 mg/dL (0-200); Estimated Glomerular Filt Rate > 60; Glucose 112 mg/dL (65-110); HDL Direct 49 mg/dL; Potassium 4.3 mmol/L (3.4-5.0); Sodium 140 mmol/L (137-145); Triglycerides 119 mg/dL (<150)
[2023-07-11 08:25] LABS: NT Pro B Type Natriuretic Pept 25 pg/mL (19.9-100)
[2023-07-11 08:27] LABS: LDL Cholesterol Direct 107 mg/dL
== END 2023-07-11 06:57 | disposition home or self-care (01) ==
LOC: ANHLAB 06:58
PROVIDERS: PCP Family Medicine; Visit Provider Family Medicine
DX: I42.8 Other cardiomyopathies (principal); G47.33 Obstructive sleep apnea (adult) (pediatric); I42.9 Cardiomyopathy, unspecified; I50.9 Heart failure, unspecified; I48.92 Unspecified atrial flutter; I50.20 Unspecified systolic (congestive) heart failure; E78.2 Mixed hyperlipidemia; I11.0 Hypertensive heart disease with heart failure
CPT/HCPCS: 36415; 80053; 80061; 83880; 84443; 85025

== ENCOUNTER 2023-08-01 11:07 | Emergency (ER) | payer BC, SELFPAY ==
[2023-08-01 11:29] VITALS: BP 127/77; PULSE 82; RESP 16; TEMP 36.6; O2SAT 96
== END 2023-08-01 11:45 | disposition home or self-care (01) ==
PROVIDERS: Emergency Provider Nurse Practitioner Family; PCP Family Medicine
DX: H60.91 Unspecified otitis externa, right ear (principal); H66.91 Otitis media, unspecified, right ear; H60.391 Other infective otitis externa, right ear; I48.91 Unspecified atrial fibrillation; I50.9 Heart failure, unspecified
CPT/HCPCS: 99213; G0463

== ENCOUNTER 2024-06-26 16:28 | Emergency (ER) | payer BC, SELFPAY ==
--- NOTE | ~2024-06-26 | XR_ITS ---
EXAMINATION: XR chest 2V Exam Date/Time: 06/26/2024 17:45 CERAMIC CAPACITOR PROCESSOR HISTORY: dry cough with fever non smoker Comparison: None. RESULT: Lines, tubes, and devices: Mid thoracic vertebroplasty cement. Lungs and pleura: Clear. Cardiomediastinal silhouette: Stable. Other: No acute osseous or upper abdominal finding. IMPRESSION: No acute cardiopulmonary process. Reviewed, dictated and finalized at location K. MIC CAPACITOR PROCESSOR
[2024-06-26 16:42] VITALS: BP 113/81; PULSE 129; RESP 16; TEMP 37.9; O2SAT 98
--- NOTE | 2024-06-26 16:48 | ED_ITS ---
HPI - URI/Sore Throat General Chief Complaint: Upper Respiratory Infection Stated Complaint: runny nose,fever,cough,achy,ANGELES Source: patient, RN notes reviewed and old records reviewed Mode of arrival: ambulatory Limitations: no limitations History of Present Illness HPI Narrative: Patient presents with complaints of flu-like symptoms that started a day ago. He reports that for the past month he has had a little bit of runny nose, he did not think much of this. Yesterday began to notice cough, body aches, fever. Patient has been taking Tylenol and Robitussin for his symptoms with moderate relief. Related Data Home Medications ?Medication ?Instructions ?Recorded ?Confirmed ?Last Taken ?Type aspirin 81 mg tablet,delayed 81 mg PO QAM 09/24/22 06/26/24 02/13/23 09:00 History release (Adult Low Dose Aspirin) furosemide 80 mg tablet 80 mg PO BID 09/24/22 06/26/24 02/13/23 09:00 History sacubitril 97 mg-valsartan 103 mg 1 tablet PO BID 09/24/22 06/26/24 02/13/23 09:00 History tablet (Entresto) carvedilol 6.25 mg tablet 6.25 mg PO BID 02/10/23 06/26/24 02/13/23 09:00 History rivaroxaban 20 mg tablet (Xarelto) 20 mg PO HS 02/12/23 06/26/24 02/13/23 17:00 History bupropion HCl 300 mg 24 hr tablet, 300 mg PO DAILY 06/26/24 06/26/24 Unknown History extended release rosuvastatin 5 mg tablet 5 mg PO DAILY 06/26/24 06/26/24 Unknown History Allergies Allergy/AdvReac Type Severity Reaction Status Date / Time No Known Allergies Allergy Verified 06/26/24 16:30 Review of Systems Review of Systems: All systems reviewed & are unremarkable except as noted in HPI and below Constitutional: Constitutional: Reports no additional constitutional complaints, Reports body ache(s), Reports chills, Reports headache(s) and Reports lethargy ENT: Reports system reviewed and no additional complaints, except as documented, Reports nasal congestion and Reports nasal discharge Cardiovascular: Cardiovascular: Reports no additional cardiovascular complaints Respiratory: Respiratory: Reports no additional respiratory complaints and Reports cough Gastrointestinal: Gastrointestinal: Reports no additional gastrointestinal complaints PMFSH Past Medical History Medical History Rectal polyp Hx of cataract Blood bacterial culture positive Throat infection Leukocytosis Abscess, peritonsillar Colon cancer screening Thrombocytopenia Nonischemic cardiomyopathy Heart failure with reduced ejection fraction Hypotension Elevated liver enzymes Elevated LFTs DVT prophylaxis Obstructive sleep apnea LAVON (obstructive sleep apnea) Hypertension Surgical History Surgical History Hx of cataract surgery S/P tendon repair right hand H/O kyphoplasty Family History Family History Father Heart disease Pulmonary disease Cancer Other Family history non-contributory Social History Social History Social History: Smoking status: Never smoker Second hand tobacco smoke exposure: No Alcohol intake: current Drinks per week: 12 Alcohol use details: BEERS Substance use: never Substance use type: does not use Do You Feel Safe in your Home?: Yes Lack of Transportation: No Lack of Food: Never True Current Housing: I Have Housing Concerned About Future Housing: No Difficulty Paying Gas/Electric Bills: No Difficulty Paying for Meds: No Currently Unemployed: No Education: Associate Degree Difficulty w/ Childcare or Family Care: No Living arrangements: with family 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 There is no relevant family history pertinent to the patient complaint. Exam Const: General: cooperative, no acute distress, alert and awake Orientation/consciousness: oriented to person, oriented to place and oriented to time HENMT: Head: normal to inspection Ears: TM's normal bilaterally Mouth: Yes moist mucous membranes Throat: posterior oropharynx normal Resp: Effort & Inspection: normal respiratory effort and able to speak in complete sentences Auscultation: clear to auscultation bilaterally, no crackles, no rales, no rhonchi and no wheezes Cardio: Palpation: normal PMI Rate: regular rate Rhythm: regular rhythm Heart sounds: S1 normal heart sound present and S2 normal heart sound present Neuro: General: oriented to person, oriented to place and oriented to time Cranial nerves: Yes CN's II-XII intact bilaterally Psych: Appearance: grossly normal Thought process: Normal thought process present Insight: Good insight present (Psych) Judgement: Good judgement present (Psych) Course Course Level of Care: Express Care Visit Vital Signs Vital signs: Vital Signs Temperature 100.2 F H 06/26/24 16:42 Pulse Rate 129 H 06/26/24 16:42 Respiratory Rate 16 06/26/24 16:42 Blood Pressure 113/81 06/26/24 16:42 Pulse Oximetry 98 06/26/24 16:42 Oxygen Delivery Room Air 06/26/24 16:42 Temperature 100.2 F H 06/26/24 16:42 Pulse Rate 129 H 06/26/24 16:42 Respiratory Rate 16 06/26/24 16:42 Blood Pressure 113/81 06/26/24 16:42 Pulse Oximetry 98 06/26/24 16:42 Oxygen Delivery Room Air 06/26/24 16:42 Reviewed MDM - URI/Sore Throat MDM Narrative Medical decision making narrative: Reassuring physical exam. Negative flu, negative COVID. Chest x-ray without acute finding. Supportive care measures discussed. Emergency department precautions discussed. Discharge instructions reviewed with patient, as well as provided in writing per nursing staff. The instructions also include specific and strict return/GO TO THE ER as well as f/u information. All questions have been answered, and the patient deny any further questions with discharge and discharge plan. Some parts of this dictation were generated by voice recognition software and may contain typographical and/or grammatical inaccuracies. Differential Diagnosis Differential diagnosis: Likely upper respiratory infection, otitis media, viral infection, bronchitis, influenza and pharyngitis Medical Records Attestation: I reviewed the patient's medical records. Lab Data Attestation: I reviewed the patient's lab results. Imaging Data Attestation: I personally reviewed and interpreted this imaging study as follows: My impression: No acute finding Radiologist's impression: [facility] [address] [place] [address] XRay Report Signed Patient: Saurabh Metcalf : 1965 MR#: [id number] Age: 58 Acct:[id number] Loc: [facility] ADM Date: 06/26/24Attending Dr: Ordering Physician: Love Ching FNP Date of Service: 06/26/24 Procedure(s): XR chest 2V Accession Number(s): [id number] cc: Love Ching FNP; DENTAL EQUIPMENT MECHANIC PHYSICIAN~ EXAMINATION: XR chest 2V Exam Date/Time: 06/26/2024 17:45 ELECTRICAL TECHNICIAN HISTORY: dry cough with fever non smoker Comparison: None. RESULT: Lines, tubes, and devices: Mid thoracic vertebroplasty cement. Lungs and pleura: Clear. Cardiomediastinal silhouette: Stable. Other: No acute osseous or upper abdominal finding. IMPRESSION: No acute cardiopulmonary process. Reviewed, dictated and finalized at location K. TRICAL TECHNICIAN Please be advised this is a medical document. It is intended for [id number] communication. It is written in medical language and may contain unfamiliar abbreviations or verbiage. Medical documents are intended to carry relevant information, facts as evident, and the clinical opinion of the practitioner at the time of the encounter. This report may have been done utilizing a voice recognition system. Attempts have been made to correct errors. However, there may be uncorrected grammatical, spelling, and recognition errors present. The file time of this note does not ne cessarily represent the time of service. Dictated By: Osmany Donald MD 06/26/24 1754 Signed By: <Electronically signed by Osmany Donald MD in OV> Discharge Plan Discharge Clinical Impression: Viral syndrome Patient Disposition: Home, Self-Care Condition: Stable Instructions: Antibiotic Form, Viral Syndrome (ED) Additional Instructions: Use ptqk-fml-bkybtmg medications to treat your symptoms. Emergency department immediately for new or worse symptoms. Follow up with primary care provider Patient Language: Venezuelan Prescriptions: No Action bupropion HCl 300 mg tablet extended release 24 hr 300 mg PO DAILY rosuvastatin 5 mg tablet 5 mg PO DAILY carvedilol 6.25 mg tablet 6.25 mg PO BID aspirin [Adult Low Dose Aspirin] 81 mg Tablet,Delayed Release (Dr/Ec) 81 mg PO QAM furosemide 80 mg tablet 80 mg PO BID sacubitril-valsartan [Entresto] 97-103 mg tablet 1 tablet PO BID Xarelto 20 mg tablet 20 mg PO HS Follow-up/Referrals: PHYSICIAN,DENTAL EQUIPMENT MECHANIC [Primary Care Provider] - Time of Disposition: 18:20
[2024-06-26 17:50] LABS: EDCOVIDSCREEN Negative (Negative); EDINFLUASCREEN Negative (Negative); EDINFLUBSCREEN Negative (Negative)
[2024-06-26 18:17] VITALS: PULSE 104; TEMP 37.7
== END 2024-06-26 18:25 | disposition home or self-care (01) ==
PROVIDERS: Emergency Provider Nurse Practitioner Family
DX: B34.9 Viral infection, unspecified (principal); Z20.822 Contact with and (suspected) exposure to COVID-19; I42.8 Other cardiomyopathies; I11.0 Hypertensive heart disease with heart failure; I50.9 Heart failure, unspecified; D69.6 Thrombocytopenia, unspecified; Z79.82 Long term (current) use of aspirin
CPT/HCPCS: 71046; 87426; 87804; 99213; G0463

== ENCOUNTER 2024-08-05 07:37 | Outpatient (CLI) | payer BC, SELFPAY ==
--- OUTSIDE RECORDS SUMMARY | 2024-08-05 07:41 | XMS_ITS | Clinical Summary ---
Author Organization [facility] [address] Address [address] [place] [address] Care Team Providers Care Crochet Beader Name Role Phone Kayla Khan Primary Care Provider Allergies No known active allergies Medications aspirin (Adult Low Dose Aspirin) 81 mg enteric coated tablet Take 1 tablet (81 mg total) by mouth daily 3 Active Xarelto 20 mg tablet TAKE 1 TABLET DAILY WITH DINNER 90 tablet 3 4 Active furosemide (LASIX) 80 mg tablet TAKE 1 TABLET TWICE A DAY 180 tablet 1 5 Active sacubitriL-gus sartan (Entresto) 97-103 mg tablet TAKE 1 TABLET BY MOUTH TWICE DAILY 180 tablet 5 Active rosuvastatin (CRESTOR) 5 mg tablet TAKE 1 TABLET DAILY 90 tablet 5 Active carvediloL (COREG) 6.25 mg tablet Take 1 tablet (6.25 mg total) by mouth 2 (two) times a day with meals 180 tablet 5 Active carvediloL (COREG) 6.25 mg tablet TAKE 1 TABLET TWICE A DAY WITH MEALS 180 tablet 3 4 025 Discontinued(Re order) rosuvastatin (CRESTOR) 5 mg tablet Take 1 tablet (5 mg total) by mouth daily 90 tablet 1 4 025 Discontinued sacubitriL-gus sartan (Entresto) 97-103 mg tablet Take 1 tablet by mouth 2 (two) times a day 180 tablet 1 4 025 Discontinued carvediloL (COREG) 6.25 mg tablet Take 1 tablet (6.25 mg total) by mouth 2 (two) times a day with meals 180 tablet 025 Discontinued(Re order) Active Problems Problem Noted Date Diagnosed Date H/O cardiomyopathy 04/08/2023 Medication side effects 12/03/2022 Class 2 severe obesity due t o excess calories with serious comorbidity and body mass index (BMI) of 39.0 to 39.9 in adult 02/13/2022 Chronic heart failure with preserved ejection fr action 02/13/2022 Coronary artery disease invo lving [place] coronary artery of [place] heart without angina pectoris 02/13/2022 Dilated cardiomyopathy 02/13/2022 Paroxysmal atrial fibrillation 02/13/2022 Chronic anticoagulation 02/13/2022 Encounters Date Type Department Care Team Description 08/04/2024 Telephone [facility] ([facility] - [facility] [address] [facility] [address] [place] [address] [place] [address] Gianna Garza, 08/03/2024 Telephone [facility] ([facility]) - [facility]NT [address] [facility] [address] [place] [address] [place] [address] Gianna Garza, MS from Last 3 Months Surgical History Surgery Date Site/Laterality Comments KYPHOPLASTY T7 CATARACT EXTRACTION 10/2019 FRACTURE SURGERY 2011 SPINE SURGERY 2011 VASECTOMY 1993 Medical History Medical History Date Comments Atrial fibrillation (HCC) CHF (congestive heart failure) (HCC) Hypertension Sleep apnea Cataract 06/2019 Family History Medical History Relation Name Comments Lung cancer Father Relation Name Status Comments Brother Alive Father (Age 63) Mother Alive Sister 1 Alive Sister 2 Alive Sister 3 Alive Sister 4 Alive Social History Tobacco Use Types Packs/Day Years Used Date Smoking Tobacco: Never Smokeless Tobacco: Never Sex and Gender Information Value Date Recorded Sex Assigned at Not on file Legal Sex Male 7:45 AM CDT Gender Identity Not on file Sexual Orientation Not on file Obstetrics History Last Filed Vital Signs Vital Sign Reading Time Taken Comments Blood Pressure 128/70 10/09/2023 2:19 PM CDT Pulse 72 10/09/2023 2:19 PM CDT Temperature - - Respiratory Rate - - Oxygen Saturation 96% 10/09/2023 2:19 PM CDT Inhaled Oxygen Concentration - - Weight 140.6 kg (310 lb) 10/09/2023 2:19 PM CDT Height 188 cm (6' 2 ) 10/09/2023 2:19 PM CDT Body Mass Index 39.8 10/09/2023 2:19 PM CDT Plan of Treatment Health Maintenance Due Date Last Done Comments Colon Cancer Screening-Colonoscopy 1965 Depression Screening 1965 Hepatitis C Screening 1965 Prostate Cancer Screening-PSA 1965 Hepatitis B Screening 10/21/1985 Regular Well Visit/Exam 18-64 10/21/1985 Pneumococcal vaccine <65 (1 of 2 - PCV) 10/21/1986 Zoster Vaccine (1 of 2) 10/21/2017 Covid-19 Vaccine (2023-2 5 season) 2024 03/30/2021, 07/27/2020 Influenza Vaccine (#1) 2024 , 06/03/2019, 06/03/2019, Additional history exists DTaP/Tdap/Td Vaccine (2 - Td or Tdap) 08/14/2030 08/14/2020 Insurance Triage CHOICE Member Subscriber Plan / Payer (Ef fective 2019-Present) Name:Saurabh Eldridge Relation to Subscriber:Spouse Name:JAZMYNJENNA Jose Date of :1969 (Home) Address: [address] [place] [address] Payer ID:[id number] (NAIC) Type:DAVIS MAHONEY Address: [facility] [id number] [place] [id number] ANTHEM ACCESS CHOICE ANTHEM ACCESS CHOICE Care Teams Crochet Beader Relationship Specialty Start Date End Date Kayla Khan PA [address] [place] [address] [place] [address] PCP - General 04/08/23
--- OUTSIDE RECORDS SUMMARY | 2024-08-05 07:41 | XMS_ITS | Encounter Summary ---
Author Organization [facility] Address [address] [place] [address] Phone Care Team Providers Care Marriage And Family Counselor Name Role Phone Kayla Khan Primary Care Provider [phone] Encounter Details Date Type Department Care Team (Late st Contact Info) Description 08/04/2024 [facility] ([facility] - [facility] [address] [facility] [address]th [place] [address] [place] [address] Gianna Garza MS Social History Tobacco Use Types Packs/Day Years Used Date Smoking Tobacco: Never Smokeless Tobacco: Never Sex and Gender Information Value Date Recorded Sex Assigned at Not on file Legal Sex Male 7:45 AM CDT Gender Identity Not on file Sexual Orientation Not on file documented as of this encounter Miscellaneous Notes * Telephone Encounter - Barrett Sanchez - 08/04/2024 10:36 AM CDT Called Pt x2 No Answer, LVM Chart message sent Letter to be Issued documented in this encounter Plan of Treatment Not on file documented as of this encounter Visit Diagnoses Not on filedocumented in this encounter Care Teams Marriage And Family Counselor Relationship Specialty Start Date End Date Kayla Khan PA [address] [place] [address] [place] [address] PCP - General 04/08/23 documented as of this encounter
--- OUTSIDE RECORDS SUMMARY | 2024-08-05 07:41 | XMS_ITS | Referral Summary ---
Author Organization [facility] [address] Address [address] [place] [address] Care Team Providers Care Cleaner Signs Name Role Phone Kayla Khan Primary Care Provider [phone] Encounters Date Type Department Care Team Description 08/04/2024 Telephone [facility] - [facility] [address] [facility] [address]th [place] [address] [place] [address] Gianna Garza MS 08/03/2024 Telephone [facility] ([facility]) - [facility] [address] [facility] [address] [place] [address] [place] [address] Gianna Garza, MS from Last 3 Months Allergies No known active allergies Medications aspirin [...] a day with meals 180 tablet 5 025 Discontinued(Re order) Active Problems Problem Noted Date Diagnosed Date H/O cardiomyopathy 04/08/2023 Medication side effects 12/03/2022 Class 2 severe obesity due t o excess calories with serious comorbidity and body mass index (BMI) of 39.0 to 39.9 in adult 02/13/2022 Chronic heart failure with preserved ejection fr action 02/13/2022 Coronary artery disease invo lving [place] coronary artery of [place] heart without angina pectoris 02/13/2022 Dilated cardiomyopathy 02/13/2022 Paroxysmal atrial fibrillation 02/13/2022 Chronic anticoagulation 02/13/2022 Social History Tobacco Use Types Packs/Day Years Used Date Smoking Tobacco: Never Smokeless Tobacco: Never Sex and Gender Information Value Date Recorded Sex Assigned at Not on file Legal Sex Male 7:45 AM CDT Gender Identity Not on file Sexual Orientation Not on file Last Filed Vital Signs Vital Sign Reading [...] 10/09/2023 2:19 PM CDT Plan of Treatment Not on file Insurance ANTHEM ACCESS CHOICE ANTHEM ACCESS CHOICE ANTHEM ACCESS CHOICE Member Subscriber Plan / Payer (Ef fective 2023-) Name:Saurabh Eldridge Relation to Subscriber:Spouse Name:PEDRITO ELDRIDGE (Home) Address: [address] [place] [id number] Payer ID:[id number] (NAIC) Type:BC ALLIANCE Address: [address] [place] [id number] Care Teams Cleaner Signs Relationship Specialty Start Date End Date Kayla Khan PA [address] [place] [address] PCP - General 04/08/23
--- OUTSIDE RECORDS SUMMARY | 2024-08-05 07:41 | XMS_ITS | Clinical Summary ---
Author Organization [facility] Address [address] [place] [address] Care Team Providers Care Eating Disorder Specialist Name Role Phone Unavailable Primary Care Provider Unavailabl e Social History Tobacco Use Types Packs/Day Years Used Date Smoking Tobacco: Never Assessed Sex and Gender Information Value Date Recorded Sex Assigned at Not on file Legal Sex Male 10:37 PM PET ADOPTION COUNSELOR Gender Identity Not on file Sexual Orientation Not on file Last Filed Vital Signs Vital Sign Reading Time Taken Comments Blood Pressure 145/81 09/17/2017 7:28 AM CDT Pulse 80 09/17/2017 7:28 AM CDT Temperature - - Respiratory Rate - - Oxygen Saturation - - Inhaled Oxygen Concentration - - Weight 125.2 kg (276 lb) 09/17/2017 7:28 AM CDT Height 188 cm (6' 2 ) 09/17/2017 7:28 AM CDT Body Mass Index 35.44 09/17/2017 7:28 AM CDT Plan of Treatment Health Maintenance Due Date Last Done Comments Colorectal Cancer Screening Colonoscopy (10 Years) 1965 Annual Physical 10/21/1970 Hepatitis C 10/21/1985 DTaP, Tdap and Td Vaccines ( 1 - Tdap) 10/21/1986 Hepatitis B Vaccines (1 of 3 - 19+ 3-dose series) 10/21/1986 Zoster Vaccines (1 of 2) 10/21/2017 COVID-19 Vaccine (2023-2 5 season) 2024 Influenza Adult (#1) 2024 Meningococcal B Vaccine Aged Out No l onger eligible based on patient's age to complete this topic Meningococcal Vaccine Aged Out No donavan anne eligible based on patient's age to complete this topic Pneumococcal Vaccine: Pediat rics (0 to 5 Years) and At-Risk Patients (6 to 64 Years) Aged Out No longer eligible b ased on patient's age to complete this topic RSV Immunizations Under 20 Months Aged Out No longer eligible based on patient's age to complete this topic
--- OUTSIDE RECORDS SUMMARY | 2024-08-05 07:42 | XMS_ITS | Data Portability ---
Author Organization [facility] [place], Main Office Address [address] [place] [address] Assessment No assessment recorded. Plan of Treatment Reminders Order Date Submit Date Provider Last Modified By Organization Details Last Modified Time Details Appointments None recorded. Lab None recorded. Referral None recorded. Procedures colonoscopy screening (PROC) - please call pt to schedule 2022 023 [email or web address] Fili Barahona MD, [address] [facility] [address], [place], [address], 3 09:06:14 Surgeries None recorded. Imaging None recorded. Medication Orders Saxenda 3 mg/0.5 mL (18 mg/3 mL) subcutaneou s pen injector 2022 023 [id number], [address] , [place], [place], [id number], 3 13:06:36 Patient TargetsNo targets recorded. Patient InstructionsNo instructions recorded. Reason for Referral None Reported. Results Created Date Observation Date Name Description Value Unit Range Abnormal Flag Note LastModifiedBy Organization Detail LastModifiedTime 11/07/19 22 11/06/2021 URIC ACID SERUM uric acid 7.2 mg/dL 3.5-8. 5 Not Available [facility] (Lab) [address] [place], [address], 11/06/2021 13:55:03 11/07/19 22 11/06/2021 BASIC METAB OLIC PANEL sodium 141 mmol/ L 137-14 5 Not Available [facility] (Lab) [address] [place], [address], 11/06/2021 13:55:01 11/07/19 22 11/06/2021 BASIC METAB OLIC PANEL potassium 4.9 mmol/ L 3.5-5. 1 Not Available [facility] (Lab) [address] [place], [address], 11/06/2021 13:55:01 11/07/19 22 11/06/2021 BASIC METAB OLIC PANEL chloride 107 mmol/ L 98-107 Not Available [facility] (Lab) [address] [place], [address], 11/06/2021 13:55:01 11/07/19 22 11/06/2021 BASIC METAB OLIC PANEL carbon dioxide 26 mmol/ L 22-30 Not Available [facility] (Lab) [address] [place], [address], 11/06/2021 13:55:01 11/07/19 22 11/06/2021 BASIC METAB OLIC PANEL anion gap 12.9 mmol/ L 14-22 low Not Available [facility] (Lab) [address] [place], [address], 11/06/2021 13:55:01 11/07/19 22 11/06/2021 BASIC METAB OLIC PANEL glucose 111 mg/dL 70-99 high Not Available [facility] (Lab) [address] [place], [address], 11/06/2021 13:55:01 11/07/19 22 11/06/2021 BASIC METAB OLIC PANEL BUN 17 mg/dL 8-19 Not Available [facility] (Lab) [address] [place], [address], 11/06/2021 13:55:01 11/07/19 22 11/06/2021 BASIC METAB OLIC PANEL creatinine 0.88 mg/dL 0.66-1 .25 Not Available [facility] (Lab) [address] [place], [address], 11/06/2021 13:55:01 11/07/19 22 11/06/2021 BASIC METAB OLIC PANEL GFR >60 Refer ence Range : [place] ge GFR Healt hy Adult : >60 mL/mi n/1.7 3 m2 Chron ic Kidne y Disea se: 15-60 mL/mi n/1.7 3 m2 Kidne y Failu re: <15/m L/min /1.73 m2 www.n iddk. [facility].g ov The MDRD study equat ion has not been valid ated in child katina <18 years of age; pregn ant women ; the elder ly >85 years of age; or in some racia l or ethni c subgr oups, such as Hispa nics. Outsi de the valid ated ro eters , estim ated GFR is less accur ate, requi ring clini aren judgm ent on a case- by-ca se basis . Clini aren inter preta tion for other races and ages must be made by the clini rubén. The MDRD study equat ion has not been valid ated for the evalu ation of serum creat inine relat ed to nutri corey l statu s or medic ation usage . For perso ns <18 years of age, a pedia tric GFR calcu lator is avail able on the [facility] websi te: https ://olegario berkowitz.julissa alexandra.o rg/pr ofess ional s/kdo qi/gf r_cal culat or Not Available [facility] (Lab) [address] [place], [address], 11/06/2021 13:55:01 11/07/19 22 11/06/2021 BASIC METAB OLIC PANEL calcium 9.6 mg/dL 8.4-10 .2 Not Available [facility] (Lab) [address] [place], [address], 11/06/2021 13:55:01 10/19/19 22 10/18/2021 XR, chest , 2 view No observ ation record ed. [id number], [place], [address], 07/17/2022 06:05:32 10/20/19 22 10/19/2021 XR, chest , 2 view No observ ation record ed. [id number] [place] [address] [address], [place], [address], 07/17/2022 06:05:32 10/21/19 22 10/20/2021 XR, chest , 2 view No observ ation record ed. [id number] [place] [address] [address], [place], [address], 07/17/2022 06:05:32 10/22/19 22 10/20/2021 US, abdom en No observ ation record ed. [id number] [place] [address], [place], [address], 07/17/2022 06:05:32 10/22/19 22 10/21/2021 XR, chest , 2 view No observ ation record ed. [id number] [place] [address] [address], [place], [address], 07/17/2022 06:05:32 10/25/19 22 10/24/2021 XR, chest , 2 view No observ ation record ed. [id number] [place] [address] [address], [place], [address], 07/17/2022 06:05:32 02/13/20 23 02/12/2023 CT, neck, soft tissu e, w/ contr ast No observ ation record ed. [email or web address] [address] [facility], [place], [address], 02/13/2023 07:56:38 Result Notes None recorded. Problems Name Problem SNOMED Code Status Onset Date Resolution Date Notes Provider Name and Address Organization Details Recorded Time Disorder of shoulder 562988166 Active Not Available [facility] 3 05:58:50 Benign essentia l hyperten fabrice 3712357 Active Not Available [facility] 3 05:58:50 Hernia of abdomina l wall Active Not Available [facility] 3 05:58:50 Gastroes ophageal reflux disease 661370209 Active Not Available [facility] 3 05:58:50 Lesion of nose 084554157 Completed Not Available [facility] 3 05:58:51 Skin irritati on 949151819 Completed Not Available [facility] 3 05:58:51 History of vertebra l fracture 817091809 Active traumati c T7 03/2012, s/p marybeth Quintero Not Available [facility] 3 05:58:51 Vertigo 154840625 Active Not Available [facility] 3 05:58:51 Obesity 402946271 Active Not Available [facility] 3 05:58:51 Furuncle 745457508 Completed Not Available [facility] 3 05:58:51 Congesti ve heart failure 12142496 Active 2021 Not Available [facility] 3 05:58:51 Primary erectile dysfunct ion 876206767 Active Not Available [facility] 3 05:58:51 Bilatera l tinnitus 94945426200 02 Active Not Available [facility] 3 05:58:51 Diarrhea 77376948 Completed Not Available [facility] 3 05:58:52 Obstruct monico sleep apnea syndrome 03980499 Active Not Available [facility] 3 05:58:52 Gout 89770139 Active 2021 Not Available [facility] 3 05:58:52 Problem Notes None recorded. Procedures Surgical History Date Name Laterality Status Provider Name and Address Organization Details Recorded Time 3 Colonoscopy completed Lisa Banuelos RN [place] [facility] 10/29/2022 09:21:34 Imaging Results Imaging Date Name Status LastModified by Organiz ation Details LastModified Time 10/20/2021 US, abdomen completed [id number] [facility], [place], [address], 07/17/2022 06:05:32 10/21/2021 XR, chest, 2 view completed [id number] [address] [place] [address] [address], [place], [address], 07/17/2022 06:05:32 10/19/2021 XR, chest, 2 view completed [id number] [address] [place], [place] [address]e [facility], [place], [address], 07/17/2022 06:05:32 10/24/2021 XR, chest, 2 view completed [id number] [address] [place] [address], [place], [address], 07/17/2022 06:05:32 10/20/2021 XR, chest, 2 view completed [id number] [address] [place], [place] [address]e [facility], [place], [address], 07/17/2022 06:05:32 10/18/2021 XR, chest, 2 view completed [id number] [address] [place], [place] [address]e [facility], [place], [address], 07/17/2022 06:05:32 02/12/2023 CT, neck, soft tissue, w/ contrast completed [email or web address] [address], [address], 02/13/2023 07:56:38 Procedure Notes None recorded. Medical Equipment None Reported. Allergies No known drug allergies Medications Name Sig Start Date Stop Date Status Note LastModified by Organization Details LastModified Time celecoxib 200 mg capsule TAKE 1 CAPSULE DAILY 04/15 completed Not Available Not Available Not Available furosemide 40 mg tablet TAKE 1 TABLET BY MOUTH TWICE DAILY 08/12 completed Not Available Not Available Not Available metolazone 2.5 mg tablet active Not Available Not Available Not Available triamcinolo ne acetonide 0.5 % topical cream active PRN Not Available Not Available Not Available azithromyci n 250 mg tablet TAKE 2 TABLETS BY MOUTH ON DAY 1, AND THEN TAKE 1 TABLET BY MOUTH ONCE A DAY ON DAY 2 THROUGH DAY 5 11/06 completed Not Available Not Available Not Available metoprolol succinate ER 50 mg tablet,exte nded release 24 hr active Not Available Not Available Not Available valacyclovi r 1 gram tablet 11/06 completed Not Available Not Available Not Available tolterodine ER 4 mg capsule,ext ended release 24 hr TAKE 1 CAPSULE DAILY 02/06 completed Not Available Not Available Not Available hydrocodone 5 mg-acetamin ophen 325 mg tablet Take 1 tablet every 6 hours prn pain active Not Available Not Available No t Available naltrexone 50 mg tablet TAKE 1 TABLET BY MOUTH EVERY DAY active Not Available Not Available No t Available metronidazo le 500 mg tablet TK 1 T PO BID FOR 5 DAYS active Not Available Not Available No t Available amlodipine 5 mg tablet TAKE 1 TABLET DAILY active Not Available Not Available No t Available allopurinol 100 mg tablet TAKE 1 TABLET BY MOUTH EVERY DAY active Not Available Not Available No t Available ciprofloxac in 500 mg tablet TK 1 T PO Q 12 HOURS FOR 5 DAYS active Not Available Not Available No t Available sulfamethox azole 800 mg-trimetho prim 160 mg tablet TAKE 1 TABLET BY MOUTH EVERY 12 HOURS 02/06 completed Not Available Not Available Not Available triamterene 37.5 mg-hydrochl orothiazide 25 mg capsule Take 1 capsule every day by oral route for 30 days. 07/29 completed Not Available Not Available Not Available triamcinolo ne acetonide 0.1 % topical cream APPLY A THIN LAYER TO THE AFFECTED AREA(S) BY TOPICAL ROUTE 2 TIMES PER DAY 07/29 completed prn Not Available Not Available Not Available alprazolam 0.5 mg tablet active Not Available Not Available Not Available potassium chloride ER 20 mEq tablet,exte nded release(par t/cryst) TAKE 1 TABLET BY MOUTH TWICE DAILY FOR 3 DAYS AND THEN 1 TABLET DAILY THEREAFTE R active Not Available Not Available No t Available furosemide 80 mg tablet Take 1 tablet twice a day by oral route for 90 days. active Not Available Not Available No t Available meclizine 25 mg tablet TAKE 1 TABLET BY MOUTH TWICE DAILY NEEDED active Not Available Not Available No t Available cephalexin 500 mg capsule TAKE 1 CAPSULE BY MOUTH EVERY 6 HOURS FOR 10 DAYS 02/06 completed Not Available Not Available Not Available omeprazole 20 mg capsule,del ayed release Take 1 capsule every day by oral route. 09/24 completed Not Available Not Available Not Available diclofenac sodium 75 mg tablet,lucille yed release TAKE 1 TABLET TWICE A DAY WITH FOOD active Not Available Not Available No t Available allopurinol 300 mg tablet TAKE 1 TABLET BY MOUTH EVERY DAY 04/15 completed Not Available Not Available Not Available Detrol LA 2 mg capsule,ext ended release Take 1 capsule every day by oral route. 2012 active Not Available Not Available Not Avai lable zolpidem 5 mg tablet TAKE 1 TABLET BY MOUTH EVERY DAY 11/06 completed Not Available Not Available Not Available methylpredn isolone 4 mg tablets in a dose pack FOLLOW PACKAGE DIRECTION S 04/15 completed Not Available Not Available Not Available colchicine 0.6 mg tablet TAKE 2 TABLETS BY MOUTH FOR 1 DOSE THEN 1 TABLET BY MOUTH 1 HOUR LATER 11/26 completed Not Available Not Available Not Available dicloxacill in 250 mg capsule active Not Available Not Available Not Available rosuvastati n 5 mg tablet Take 1 tablet every day by oral route for 90 days. active Not Available Not Available No t Available tadalafil 5 mg tablet Take 1 po daily 11/06 completed Not Available Not Available Not Available metoprolol tartrate 25 mg tablet TAKE 1/2 TABLET BY MOUTH TWICE DAILY 04/15 completed Not Available Not Available Not Available amlodipine daily 2012 active Not Available Not Available Not Avai lable peg 3350 240 gram-electr olytes 22.72 gram-6.72 g-5.84 g powdr for soln 11/25 completed Not Available Not Available Not Available Xarelto 20 mg tablet TAKE 1 TABLET BY MOUTH DAILY AT 5 PM active Not Available Not Available No t Available Flulaval 2616-7532 45 mcg (15 mcg x 3)/0.5 mL intramuscul ar suspension INJECT 0.5 ML INTRAMUSC ULARLY DIRECTED active Not Available Not Available No t Available Contrave 8 mg-90 mg tablet,exte nded release Take 2 tablets twice a day by oral route. 07/22 completed Not Available Not Available Not Available Saxenda 3 mg/0.5 mL (18 mg/3 mL) subcutaneou s pen injector INJECT 0.6 MG UNDER THE SKIN DAILY FOR 1 WEEK, THEN INCRESAE DOSE BY 0.6 MG DAILY EVERY WEEK TO TARGET 3 MG DAILY; MAX 3 MG DAILY active Not Available Not Available No t Available Entresto 97 mg-103 mg tablet TAKE 1 TABLET BY MOUTH TWICE DAILY active Not Available Not Available No t Available Entresto 49 mg-51 mg tablet TAKE 1 TABLET BY MOUTH TWICE DAILY 04/15 completed Not Available Not Available Not Available Entresto 24 mg-26 mg tablet TAKE 1 TABLET BY MOUTH TWICE DAILY 04/15 completed Not Available Not Available Not Available Wegovy 0.25 mg/0.5 mL subcutaneou s pen injector Inject by subcutane ous route for 28 days. active Not Available Not Available No t Available Flowflex COVID-19 Antigen Home Test kit 10/23 completed Not Available Not Available Not Available Vitals Date Recorded Body mass index (BMI) Body height Oxygen saturation Oxygen saturation in Arterial blood by Pulse oximetry Heart rate Body temperature Body weight Systolic blood pressure Diastolic blood pressure Provider Name and Address Organization Details Last Updated DateTime 2 36.1 kg/m2 187.96 cm 98 % 98 % 81 /min 96.8 [degF] 193432. 46 g 134 mm[Hg] 82 mm[Hg] Not Available [facility] 3 05:56:48 Date Recorded Body mass index (BMI) Body height Oxygen saturation Oxygen saturation in Arterial blood by Pulse oximetry Heart rate Body temperature Body weight Systolic blood pressure Diastolic blood pressure Provider Name and Address Organization Details Last Updated DateTime 2 39.2 kg/m2 187.96 cm 95 % 95 % 83 /min 97.5 [degF] 436781. 67 g 116 mm[Hg] 62 mm[Hg] Not Available [facility] 3 05:56:48 Date Recorded Body height Body mass index (BMI) Body weight Body temperature Heart rate Oxygen saturation Oxygen saturation in Arterial blood by Pulse oximetry Systolic blood pressure Diastolic blood pressure Provider Name and Address Organization Details Last Updated DateTime 3 187.96 cm 39.9 kg/m2 684903. 23 g 97.3 [degF] 71 /min 97 % 97 % 100 mm[Hg] 74 mm[Hg] Valeri Olson MA [facility] 3 11:34:58 Date Recorded Body height Body mass index (BMI) Body weight Body temperature Heart rate Oxygen saturation Oxygen saturation in Arterial blood by Pulse oximetry Systolic blood pressure Diastolic blood pressure Provider Name and Address Organization Details Last Updated DateTime 3 187.96 cm 40.6 kg/m2 963485. 19 g 98.8 [degF] 76 /min 98 % 98 % 132 mm[Hg] 80 mm[Hg] Lisa Banuelos RN [place] [facility] 3 09:20:18 Social History Question Answer Notes LastModified by Adeyoh Details LastModified Time Tobacco Smoking Status Never Smoker Yoanna avitia [employer] [place] 10/29/2022 09:10:32 What Is Your Level Of Alcohol Consumption? Occasional [id number] Information not available 07/17/2022 What Is Your Level Of Caffeine Consumption? Occasional [id number] Information not available 07/17/2022 How Much Tobacco Do You Chew? None [id number] Information not available 07/17/2022 What Type Of Diet Are You Following? REGULAR Low Sodium Diet [email or web address] Information not available 08/12/2022 Which Illicit Or Recreational Drugs Have You Used? None [email or web address] Information not available 10/29/2022 Do You Or Have You Ever Used E-cigarettes Or Vape? 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 Yes [email or web address] Information not available 10/29/2022 Do You Or Have You Ever Used Smokeless Tobacco? Never Used Smokeless Tobacco [id number] Information not available 07/17/2022 Do You Use Any Illicit Or Recreational Drugs? No [email or web address] Information not available 10/29/2022 Do You Have Any Dietary Restrictions? Yes Low Sodium [email or web address] Information not available 10/29/2022 Do You Or Have You Ever Used Any Other Forms Of Tobacco Or Nicotine? No Information not available 10/29/2022 Sex: Unknown Functional Status Question Answer Note LastModified by Adeyoh Details LastModified Time What is your exercise level? Moderate [id number] Information not available 07/17/2022 Mental Status None recorded. Family History Relationship Description Onset Age of this Age Resolved Age Notes LastModified by Organization Details LastModified Time Father No current problems or disability [id number] Not available 07/17/2022 05:53:43 Mother No current problems or disability [id number] Not available 07/17/2022 05:53:43 Medical History No medical history recorded. Immunizations Vaccine Type Date Status Note Provider Nam e and Address Organization Details Recorded Time SARS-COV-2 (COVID-19) vaccine, UNSPECIFIED 1 completed Not Available [facility] 07/17/2022 06:05:12 Influenza, split virus, quadrivalent, PF 3 completed Not Available [facility] 07/17/2022 06:05:12 Influenza, split virus, quadrivalent, preservative 0 completed Not Available [facility] 07/17/2022 06:05:12 Influenza, split virus, trivalent, preservative 4 completed Not Available [facility] 07/17/2022 06:05:13 Influenza, split virus, quadrivalent, PF 1 completed Not Available [facility] 07/17/2022 06:05:13 Influenza, split virus, quadrivalent, PF 0 completed Not Available [facility] 07/17/2022 06:05:13 Influenza, split virus, quadrivalent, PF 9 completed Not Available [facility] 07/17/2022 06:05:13 Past Encounters Encounter ID Performer Location Encounter Start Date Encounter Closed Date Diagnosis/Indication Diagnosis SNOMED-CT Code Diagnosis ICD10 Code Diagnosis Note [id number] [facility] Latanya mota [address] [place] [address] 08/10/2020 00:00:00 08/10/2020 08:53:15 [id number] [facility] Latanya [address] [place] [address] 02/06/2021 00:00:00 02/06/2021 21:33:35 [id number] [facility] Celiovi lle [address] [facility] [address] [place] [address] 06/18/2021 00:00:00 06/18/2021 08:40:12 [id number] [facility] C[place] [address] [place] [address] 11/06/2021 00:00:00 11/06/2021 10:37:58 [id number] [facility] [address] [facility] [address] [place] [address] 04/15/2022 00:00:00 04/15/2022 16:23:48 [id number] ALBER Watts [facility] [address] [facility] [address] [place] [address] 08/12/2022 11:25:41 08/12/2022 12:01:51 Congestive heart failure 58090397 I50.9 Continue follow-up with cardiology (Dr. Adler). He states he is not on metolazone anymore, did not seem to be helping. He will review his labs with Dr. Adler today. Will also review those when we receive a copy. Screening for malignant neoplasm of colon 978303212 Z12.11 [id number] ALBER Watts [address] [place] [address] 10/29/2022 09:09:37 10/29/2022 13:37:22 Body mass index 40+ - severely obese 463753593 Z68.41 He was previously on contrave but stopped due to recommenda tion of cardiologi st as they did not want him on the bupropion component. We tried to send in script for wegovy but states it was denied due to not trying any other medication s, however is on same insurance plan and was able to get it approved. Sample of ozempic given in office to start initial dose. Will try to send in saxenda and if denied will try wegovy again and see if reporting he has been on contrave will help push it through. Discussed healthy eating/exe rcise. Health Concerns Section Related Observation LastModified by Organization Detai ls LastModified Time None Recorded Concern Status LastModified by Organization Details LastModified Time None Recorded Advance Directives Directive None Recorded Payers Encounter Date Sequence Insurance Name Policy Number Policy Alexander Covered Member ID Alexander Member ID Guarantor Name 08/12/2022 1 [place] [id number] Jackeline Garcia Dixon [id number] Saurabh Jones Dixon 10/29/2022 1 [place] [id number] Jackeline Garcia Dixon [id number] Saurabh Metcalf Notes Date Note Type Note Provider Name and Address Organization Details Recorded Time 08/12/2022 text/html Pt. is here to follow-up after seeing financial recording clerk (Dr. adler) on Friday last week and then he labs done on Friday. He states his office just called to review his labs and he will address that with them today. He did mention his states his kidney function was abnormal and his iron levels are elevated. ALBER Watts [address], [email or web address], [place], [address], [facility] 08/12/2022 12:25:12 10/29/2022 text/html Pt. here to talk about weight loss. He would like to get back on medication. ALBER Watts [address], [email or web address], [place], [address], [facility] 10/29/2022 13:07:13
[2024-08-05 08:03] LABS: Hematocrit 44.9 % (42.0-52.0); Hemoglobin 14.6 g/dL (14.0-18.0); Mean Corpuscular HGB Conc 32.5 g/dl (32-36); Mean Corpuscular Hemoglobin 31.5 pg (26-34); Mean Platelet Volume 10.1 fl (7.4-10.4); Platelet Count Result 172 k/mm3 (150-375); Red Blood Count 4.63 M/mm3 (4.6-6.20); Red Cell Distribution Width 13.6 % (11.5-14.5); White Blood Count 6.3 K/mm3 (4.5-10.0)
[2024-08-05 08:16] LABS: Alanine Aminotransferase 52 U/L (6-50); Albumin Level 4.5 g/dL (3.5-5.1); Alkaline Phosphatase 88 U/L (38-126); Anion Gap 10 mmol/L (4-12); Aspartate Amino Transferase 37 U/L (17-59); Bilirubin,Total 0.9 mg/dL (0.2-1.3); Blood Urea Nitrogen 17 mg/dL (9-20); Calcium 9.4 mg/dL (8.4-10.2); Carbon Dioxide 28 mmol/L (22-30); Chloride 103 mmol/L (98-107); Cholesterol 140 mg/dL (0-200); Estimated Glomerular Filt Rate > 60; Glucose 117 mg/dL (65-110); HDL Direct 60 mg/dL; Potassium 3.9 mmol/L (3.4-5.0); Sodium 141 mmol/L (137-145); Triglycerides 113 mg/dL (<150)
[2024-08-05 08:19] LABS: Add Urine Microscopic? YES; Appearance Urine Clear (Clear); Bacteria Urine None Seen /hpf; Bilirubin Urine Negative (Negative); Blood Urine Negative (Negative); Color Urine Dark Yellow (Yellow); Glucose Urine UA Negative (Negative); Ketones Urine Trace mg/dL (Negative); Leukocyte Esterase Ur Negative LEU/UL (Negative); Nitrate Urine Negative (Negative); Non Pathogenic Casts 0-2; Protein Urine Trace mg/dL (Negative); Specific Grav Ur 1.028 (1.001-1.035); Squamous Epithelial Cell Urine None Seen /hpf (Few); WBC Urine 0-5 /hpf (0-3)
[2024-08-05 08:26] LABS: Rheumatoid Factor < 12.0 IU/ML (<12)
[2024-08-05 08:27] LABS: LDL Cholesterol Direct 55 mg/dL
[2024-08-05 08:44] LABS: Prostate Specific Antigen 0.3 ng/mL (< OR = 4.0)
[2024-08-06 08:08] LABS: ANA Cascade Screen NEGATIVE (NEGATIVE)
== END 2024-08-05 07:38 | disposition home or self-care (01) ==
LOC: ANHLAB 07:38
PROVIDERS: PCP Family Medicine; Visit Provider Family Medicine
DX: M25.50 Pain in unspecified joint (principal); I10 Essential (primary) hypertension; I42.9 Cardiomyopathy, unspecified; I50.20 Unspecified systolic (congestive) heart failure; E78.5 Hyperlipidemia, unspecified; Z00.00 Encounter for general adult medical examination without abnormal findings; R35.1 Nocturia
CPT/HCPCS: 36415; 80053; 80061; 81001; 83516; 84153; 84443; 85027; 86038; 86225; 86235; 86430

== ENCOUNTER 2024-09-04 20:58 | Emergency (ER) | payer BC, SELFPAY ==
--- NOTE | ~2024-09-04 | XR_ITS ---
3 VIEWS LUMBAR SPINE Ordering provider: Kyle Riggs MD History: . fall . Comparison: None. FINDINGS: VERTEBRAL BODIES: No visible fracture or subluxation. Degenerative changes of the spine. DISK SPACES: Narrowing of the disc L1-L2 and L5-S1. Multilevel facet joint disease. SOFT TISSUES: Normal. IMPRESSION: No acute osseous abnormality lumbar spine. Reviewed, dictated and finalized at location A.
--- NOTE | ~2024-09-04 | XR_ITS ---
XR chest 1V Ordering provider: Kyle Riggs MD History: 58 years Male with . fall . Comparison: June 2024 FINDINGS: MEDIASTINUM: The cardiac silhouette is slightly enlarged. LUNGS: No infiltrates, effusions or pneumothorax. OTHER: No free air under the diaphragm. IMPRESSION: No acute cardiopulmonary pathology. Reviewed, dictated and finalized at location A.
--- NOTE | ~2024-09-04 | CT_ITS ---
EXAMINATION: CT pelvis wo con DATE: 09/04/2024 22:46 INDICATION: Possible pelvic fracture TECHNIQUE: Computed tomography (CT) of the pelvis was performed without intravenous contrast. The dos e-length product was 936.09 mGy-cm. Automated exposure control and iterative reconstruction technique were employed. COMPARISON: Right hip series dated 09/04/2024 FINDINGS: No acute fracture. There is partial ankylosis of the sacroiliac joints. Mild osteoarthritis of the hips. There is lower lumbar spondylosis partially visualized. There is advanced facet hypertr ophy at L4-5 and L5-S1. No focal lytic or blastic lesions. Possible ventral hernia incompletely visua lized. Nonobstructive bowel gas pattern. IMPRESSION: 1. No acute fracture. Reviewed, dictated and finalized at location A. IMPRESSION: 1. No acute fracture.
--- NOTE | ~2024-09-04 | XR_ITS ---
XR hip RT 2V w AP pelvis Ordering provider: Kyle Riggs History: . fall . Comparison: None. FINDINGS: BONES: Possible fracture in the right superior pubic ramus is not excluded. Evaluation for tenderness in the area is advised. Similar appearance on the left side cannot be excluded although both can be summation shadows.. HIP JOINT SPACES: Normal. SACROILIAC JOINT SPACES/LUMBAR SPINE: The sacroiliac joint spaces are normal. Mild degenerative sotelo es of the visualized lower lumbar spine. PUBIC SYMPHYSIS: Normal. SOFT TISSUES: Normal. IMPRESSION: Possibility of fractures in the superior pubic rami cannot be excluded. Clinical correlation and if w arranted CT is advised. Reviewed, dictated and finalized at location A. IMPRESSION: Possibility of fractures in the superior pubic rami cannot be excluded. Clinica l correlation and if warranted CT is advised.
--- OUTSIDE RECORDS SUMMARY | 2024-09-04 21:00 | XMS_ITS | Clinical Summary ---
Author Organization [facility] [address] Address [address] [place] [address] Care Team Providers Care Partner Manager Name Role Phone Kayla Khan Primary Care Provider [phone] Allergies No known active allergies Medications aspirin (Adult Low Dose Aspirin) 81 mg enteric coated tablet Take 1 tablet (81 mg total) by mouth daily 3 Active Xarelto 20 mg tablet TAKE 1 TABLET DAILY WITH DINNER 90 tablet 3 4 Active furosemide (LASIX) 80 mg tablet TAKE 1 TABLET TWICE A DAY 180 tablet 1 5 Active Additional Information Patient taking differently:80 mg oralDaily, Reported on 08/19/2024 sacubitriL-gus sartan (Entresto) 97-103 mg tablet TAKE 1 TABLET BY MOUTH TWICE DAILY 180 tablet 5 Active carvediloL (COREG) 6.25 mg tablet Take 1 tablet (6.25 mg total) by mouth 2 (two) times a day with meals 180 tablet 5 Active buPROPion XL (WELLBUTRIN XL) 300 mg 24 hr tablet Take 1 tablet (300 mg total) by mouth every morning 5 Active allopurinoL (ZYLOPRIM) 100 mg tablet Take 1 tablet (100 mg total) by mouth daily Active rosuvastatin (CRESTOR) 5 mg tablet TAKE 1 TABLET DAILY 90 tablet 5 08/20/19 25 Discontin ued(Thera py completed ) Active Problems Problem Noted Date Diagnosed Date H/O cardiomyopathy 04/08/2023 Medication side effects 12/03/2022 Class 2 severe obesity due t o excess calories with serious comorbidity and body mass index (BMI) of 39.0 to 39.9 in adult 02/13/2022 Chronic heart failure with preserved ejection fr action 02/13/2022 Coronary artery disease invo lving [place] coronary artery of [place] heart without angina pectoris 02/13/2022 Dilated cardiomyopathy 02/13/2022 Paroxysmal atrial fibrillation 02/13/2022 Chronic anticoagulation 02/13/2022 Encounters Date Type Department Care Team Description 08/30/2024 Telephone [facility] Advanced Medicine ([facility]) - [facility] [address] 11th [place] [address] [place] [address] Gianna Garza, MS 08/19/2024 8:30 AM CDT Office Visit [facility] Cardiology [address] [place] [address] Mercy Toussaint NP Paroxysmal atrial fibrillation (HCC); Chronic anticoagulation; H/O cardiomyopathy; Lipid screening; Class 2 severe obesity due to excess calories with serious comorbidity and body mass index (BMI) of 37.0 to 37.9 in adult (HCC) 08/04/2024 Telephone [facility] Advanced [facility] ([facility]) - [facility] [address]th [place] [address] [place] [address] Gianna Garza, 08/03/2024 Telephone [facility] ([facility]) - [facility] [address]th [place] [address] [place] [address] Gianna Garza, MS from Last 3 Months Surgical History Surgery Date Site/Laterality Comments KYPHOPLASTY T7 CATARACT EXTRACTION 10/2019 FRACTURE SURGERY 2011 SPINE SURGERY 2010 VASECTOMY 1993 Medical History Medical History Date [...] Date Smoking Tobacco: Never Smokeless Tobacco: Never Tobacco Cessation:Counseling Given: Not Answered Sex and Gender Information Value Date Recorded Sex Assigned at Not on file Legal Sex Male 7:45 AM CDT Gender Identity Not on file Sexual Orientation Not on file Obstetrics History Last Filed Vital Signs Vital Sign Reading Time Taken Comments Blood Pressure 104/70 08/19/2024 8:31 AM CDT Pulse 93 08/19/2024 8:31 AM CDT Temperature - - Respiratory Rate - - Oxygen Saturation 96% 08/19/2024 8:31 AM CDT Inhaled Oxygen Concentration - - Weight 132.5 kg (292 lb) 08/19/2024 8:31 AM CDT Height 188 cm (6' 2 ) 08/19/2024 8:31 AM CDT Body Mass Index 37.49 08/19/2024 8:31 AM CDT Plan of Treatment Health Maintenance Due Date Last Done Comments Colon Cancer Screening-Colonoscopy 1967 Depression Screening 1967 Hepatitis C Screening 1967 Prostate Cancer Screening-PSA 1967 Hepatitis B Screening 10/21/1985 Regular Well Visit/Exam 18-64 10/21/1985 Pneumococcal vaccine <65 (1 of 2 - PCV) 10/21/1986 Zoster Vaccine (1 of 2) 10/21/2017 Covid-19 Vaccine (3 - 2023-2 5 season) 2024 03/30/2021, 07/27/2020 Influenza Vaccine (Season Ended) 2025 05/25/2020, 06/03/2019, 06/03/2019, Additional history exists DTaP/Tdap/Td Vaccine (2 - Td or Tdap) 08/14/2030 08/14/2020 Procedures Procedure Name Priority Date/Time Associated Diagnosis Comments POCT LIPID PANEL Routine 08/19/2024 8:39 AM CDT Lipid screening from Last 3 Months Results * POCT lipid panel (08/19/2024 8:39 AM CDT) Cholesterol, POC 175 mg/dL HDL, POC 52 mg/dL Triglycerides, POC 175 mg/dL LDL Cholesterol POC 89 mg/dL Chol/HDL Ratio, POC 1.7 Non-HDL Cholesterol, POC 124 mg/dL Cholesterol Total, POC 175 mg/dL Capillary blood 08/19/2024 8 :39 AM CDT Mercy Toussaint NP POINT OF CARE TEST ORDERA BLES Final Result from Last 3 Months Insurance ANTHEM ACCESS CHOICE ANTHEM ACCESS CHOICE ANTHEM ACCESS CHOICE Care Teams Partner Manager Relationship Specialty Start Date End Date Kayla Khan PA [address] [place] [address] PCP - General 04/08/23
--- OUTSIDE RECORDS SUMMARY | 2024-09-04 21:00 | XMS_ITS | Referral Summary ---
Author Organization [facility] [address] [facility] [address] Address [address] [place] [address] Care Team Providers Care Print Controller Name Role Phone Kayla Khan Primary Care Provider [phone] Encounters Date Type Department Care Team Description 08/30/[address] [facility] Advanced Medicine ([facility]) - [facility] ENT [address]th [place] [address] [place] [address] Gianna Garza MS 08/19/2024 8:30 AM CDT Office Visit [facility] Cardiology [address] [place] [address] Mercy Toussaint NP Paroxysmal atrial fibrillation (HCC); Chronic anticoagulation; H/O cardiomyopathy; Lipid screening; Class 2 severe obesity due to excess calories with serious comorbidity and body mass index (BMI) of 37.0 to 37.9 in adult (HCC) 08/04/2024 [facility] E[facility] [address]th [place] [address] [place] [address] Gianna Garza MS 08/03/[address] [facility] Advanced [facility] ([facility]) - [facility] ENT [address] 11th [place] [address] [place] [address] Gianna Garza, from Last 3 Months Allergies No known [...] action 02/13/2022 Coronary artery disease invo lving [place] coronary artery of [place] heart without angina pectoris 02/13/2022 Dilated cardiomyopathy [...] 08/19/2024 8:31 AM CDT Plan of Treatment Not on file Procedures Procedure Name Priority Date/Time Associated Diagnosis [...] Final Result from Last 3 Months Insurance [facility] ACCESS CHOICE ANTHEM ACCESS CHOICE ANTHEM ACCESS CHOICE Care Teams Print Controller Relationship Specialty Start Date End Date Kayla Khan PA [address] [place] [address] [place] [address] PCP - General 04/08/23
--- OUTSIDE RECORDS SUMMARY | 2024-09-04 21:00 | XMS_ITS | Data Portability ---
Author Organization [facility], Main Office Address [address] [place] [address] Assessment No assessment recorded. Plan of Treatment Reminders Order Date Submit Date Provider Last Modified By Organization Details Last Modified Time Details Appointments None recorded. Lab None recorded. Referral None recorded. Procedures colonoscopy screening (PROC) - please call pt to schedule 2022 023 [email or web address] Fili Barahona MD, [address], [place], [address], 3 09:06:14 Surgeries None recorded. Imaging None recorded. Medication Orders Saxenda 3 mg/0.5 mL (18 mg/3 mL) subcutaneou s pen injector 2022 023 [id number], [address] , [place], [place], [id number], 3 13:06:36 Patient TargetsNo targets recorded. Patient InstructionsNo instructions recorded. Reason for Referral None Reported. Results Created Date Observation Date Name Description Value Unit Range Abnormal Flag Note LastModifiedBy Organization Detail LastModifiedTime 11/07/19 22 11/06/2021 URIC ACID SERUM uric acid 7.2 mg/dL 3.5-8. 5 Not Available [facility] (Lab) [address] [place], [address], 11/06/2021 13:55:03 11/07/19 22 11/06/2021 BASIC METAB OLIC PANEL sodium 141 mmol/ L 137-14 5 Not Available [facility] (Lab) [address] [place], [address], 11/06/2021 13:55:01 11/07/19 22 11/06/2021 BASIC METAB OLIC PANEL potassium 4.9 mmol/ L 3.5-5. 1 Not Available [facility] (Lab) [address] [place], [address], 11/06/2021 13:55:01 11/07/19 22 11/06/2021 BASIC METAB OLIC PANEL chloride 107 mmol/ L 98-107 Not Available [facility] (Lab) [address] [place], [address], 11/06/2021 13:55:01 11/07/19 22 11/06/2021 BASIC METAB OLIC PANEL carbon dioxide 26 mmol/ L 22-30 Not Available [facility] (Lab) [address] [place], [address], 11/06/2021 13:55:01 11/07/19 22 11/06/2021 BASIC METAB OLIC PANEL anion gap 12.9 mmol/ L 14-22 low Not Available [facility] (Lab) [address] [place], [address], 11/06/2021 13:55:01 11/07/19 22 11/06/2021 BASIC METAB OLIC PANEL glucose 111 mg/dL 70-99 high Not Available [facility] (Lab) [address] [place], [address], 11/06/2021 13:55:01 11/07/19 22 11/06/2021 BASIC METAB OLIC PANEL BUN 17 mg/dL 8-19 Not Available [facility] (Lab) [address] [place], [address], 11/06/2021 13:55:01 11/07/19 22 11/06/2021 BASIC METAB OLIC PANEL creatinine 0.88 mg/dL 0.66-1 .25 Not Available [facility] (Lab) [address] [place], [address], 11/06/2021 13:55:01 11/07/19 22 11/06/2021 BASIC METAB OLIC PANEL GFR >60 Refer ence Range : [place] ge GFR Healt hy Adult : >60 mL/mi n/1.7 3 m2 Chron ic Kidne y Disea se: 15-60 mL/mi n/1.7 3 m2 Kidne y Failu re: <15/m L/min /1.73 m2 www.[facility].g ov The MDRD study equat ion [...] calcu lator is avail able on the [facility] websi te: https ://olegario berkowitz.julissa alexandra.o rg/pr ofess ional s/kdo qi/gf r_cal culat or Not Available [facility] (Lab) [address] [place], [address], 11/06/2021 13:55:01 11/07/19 22 11/06/2021 BASIC METAB OLIC PANEL calcium 9.6 mg/dL 8.4-10 .2 Not Available [facility] (Lab) [address] [place], [address], 11/06/2021 13:55:01 10/19/19 22 10/18/2021 XR, chest , 2 view No observ ation record ed. [id number], [place], [address], 07/17/2022 06:05:32 10/20/19 22 10/19/2021 XR, chest , 2 view No observ ation record ed. [id number] [place] [address] [address], [place], [address], 07/17/2022 06:05:32 10/21/19 22 10/20/2021 XR, chest , 2 view No observ ation record ed. [id number] [place] [address] [address], [place], [address], 07/17/2022 06:05:32 10/22/19 22 10/20/2021 US, abdom en No observ ation record ed. [id number] [place] [address], [place], [address], 07/17/2022 06:05:32 10/22/19 22 10/21/2021 XR, chest , 2 view No observ ation record ed. [id number] [place] [address] [address], [place], [address], 07/17/2022 06:05:32 10/25/19 22 10/24/2021 XR, chest , 2 view No observ ation record ed. [id number] [place] [address] [address], [place], [address], 07/17/2022 06:05:32 02/13/20 23 02/12/2023 CT, neck, soft tissu e, w/ contr ast No observ ation record ed. [email or web address] [address] [facility], [place], [address], 02/13/2023 07:56:38 Result Notes None recorded. Problems Name Problem SNOMED Code Status Onset Date Resolution Date Notes Provider Name and Address Organization Details Recorded Time Disorder of shoulder 797164192 Active Not Available [facility] 3 05:58:50 Benign essentia l hyperten fabrice 9697438 Active Not Available [facility] 3 05:58:50 Hernia of abdomina l wall Active Not Available [facility] 3 05:58:50 Gastroes ophageal reflux disease 854244418 Active Not Available [facility] 3 05:58:50 Lesion of nose 247519558 Completed Not Available [facility] 3 05:58:51 Skin irritati on 754236127 Completed Not Available [facility] 3 05:58:51 History of vertebra l fracture 074955125 Active traumati c T7 03/2012, s/p marybeth Quintero Not Available [facility] 3 05:58:51 Vertigo 499234139 Active Not Available [facility] 3 05:58:51 Obesity 794569398 Active Not Available [facility] 3 05:58:51 Furuncle 193832620 Completed Not Available [facility] 3 05:58:51 Congesti ve heart failure 92448254 Active 2021 Not Available [facility] 3 05:58:51 Primary erectile dysfunct ion 905768569 Active Not Available [facility] 3 05:58:51 Bilatera l tinnitus 49937962800 02 Active Not Available [facility] 3 05:58:51 Diarrhea 92354388 Completed Not Available [facility] 3 05:58:52 Obstruct monico sleep apnea syndrome 64265744 Active Not Available [facility] 3 05:58:52 Gout 90462610 Active 2021 Not Available [facility] 3 05:58:52 Problem Notes None recorded. Procedures Surgical History Date Name Laterality Status Provider Name and Address Organization Details Recorded Time 3 Colonoscopy completed Lisa Banuelos RN [place] [facility] 10/29/2022 09:21:34 Imaging Results Imaging Date Name Status LastModified by Organiz ation Details LastModified Time 10/20/2021 US, abdomen completed [id number] [facility], [place], [address], 07/17/2022 06:05:32 10/21/2021 XR, chest, 2 view completed [id number] [address] [place] [address] [address], [place], [address], 07/17/2022 06:05:32 10/19/2021 XR, chest, 2 view completed [id number] [address] [place], [place] [address]e [facility], [place], [address], 07/17/2022 06:05:32 10/24/2021 XR, chest, 2 view completed [id number] [address] [place] [address], [place], [address], 07/17/2022 06:05:32 10/20/2021 XR, chest, 2 view completed [id number] [address] [place], [place] [address] [facility], [place], [address], 07/17/2022 06:05:32 10/18/2021 XR, chest, 2 view completed [id number] [address] [place], [place] [address] [facility], [place], [address], 07/17/2022 06:05:32 02/12/2023 CT, neck, soft tissue, w/ contrast completed [email or web address] [address], [address], 02/13/2023 07:56:38 Procedure Notes None recorded. Medical [...] Available Not Available No t Available [facility] 2496-6290 45 mcg (15 mcg x 3)/0.5 mL [...] % 98 % 81 /min 96.8 [degF] 955886. 46 g 134 mm[Hg] 82 mm[Hg] Not Available [facility] 3 05:56:48 Date Recorded Body mass index (BMI) Body height Oxygen saturation Oxygen saturation in Arterial blood by Pulse oximetry Heart rate Body temperature Body weight Systolic blood pressure Diastolic blood pressure Provider Name and Address Organization Details Last Updated DateTime 2 39.2 kg/m2 187.96 cm 95 % 95 % 83 /min 97.5 [degF] 579840. 67 g 116 mm[Hg] 62 mm[Hg] Not Available [facility] 3 05:56:48 Date Recorded Body height Body mass index (BMI) Body weight Body temperature Heart rate Oxygen saturation Oxygen saturation in Arterial blood by Pulse oximetry Systolic blood pressure Diastolic blood pressure Provider Name and Address Organization Details Last Updated DateTime 3 187.96 cm 39.9 kg/m2 033725. 23 g 97.3 [degF] 71 /min 97 % 97 % 100 mm[Hg] 74 mm[Hg] Valeri Olson MA [employer] 3 11:34:58 Date Recorded Body height Body mass index (BMI) Body weight Body temperature Heart rate Oxygen saturation Oxygen saturation in Arterial blood by Pulse oximetry Systolic blood pressure Diastolic blood pressure Provider Name and Address Organization Details Last Updated DateTime 3 187.96 cm 40.6 kg/m2 970719. 19 g 98.8 [degF] 76 /min 98 % 98 % 132 mm[Hg] 80 mm[Hg] Lisa Banuelos RN [place] [employer] 3 09:20:18 Social History Question Answer Notes LastModified by [email or web address] Details LastModified Time Tobacco Smoking Status Never Smoker Yoanna aivtia [employer] [facility] 10/29/2022 09:10:32 What Is Your Level Of Alcohol Consumption? Occasional [id number] Information not available 07/17/2022 What Is Your Level Of Caffeine Consumption? Occasional [id number] Information not available 07/17/2022 How Much Tobacco Do You Chew? None [id number] Information not available 07/17/2022 What Type Of Diet Are You Following? REGULAR Low Sodium Diet Information not available 08/12/2022 Which Illicit Or Recreational Drugs Have You Used? None [email or web address] Information not available 10/29/2022 Do You Or Have You Ever Used E-cigarettes Or Vape? 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 Yes Information not available 10/29/2022 Do You Or Have You Ever Used Smokeless Tobacco? Never Used Smokeless Tobacco [id number] Information not available 07/17/2022 Do You Use Any Illicit Or Recreational Drugs? No [email or web address] Information not available 10/29/2022 Do You Have Any Dietary Restrictions? Yes Low Sodium [email or web address] Information not available 10/29/2022 Do You Or Have You Ever Used Any Other Forms Of Tobacco Or Nicotine? No [email or web address] Information not available 10/29/2022 Sex: Unknown Functional Status Question Answer Note LastModified by [email or web address] Details LastModified Time What is your exercise level? Moderate [id number] Information not available 07/17/2022 Mental Status None recorded. Family History Relationship Description Onset Age of this Age Resolved Age Notes LastModified by Organization Details LastModified Time Father No current problems or disability [id number] Not available 07/17/2022 05:53:43 Mother No current problems or disability [id number] Not available 07/17/2022 05:53:43 Medical History No medical history recorded. Immunizations Vaccine Type Date Status Note Provider Nam e and Address Organization Details Recorded Time SARS-COV-2 (COVID-19) vaccine, UNSPECIFIED 1 completed Not Available [facility] 07/17/2022 06:05:12 Influenza, split virus, quadrivalent, PF 3 completed Not Available [facility] 07/17/2022 06:05:12 Influenza, split virus, quadrivalent, preservative 0 completed Not Available [facility] 07/17/2022 06:05:12 Influenza, split virus, trivalent, preservative 4 completed Not Available [facility] 07/17/2022 06:05:13 Influenza, split virus, quadrivalent, PF 1 completed Not Available [facility] 07/17/2022 06:05:13 Influenza, split virus, quadrivalent, PF 0 completed Not Available [facility] 07/17/2022 06:05:13 Influenza, split virus, quadrivalent, PF 9 completed Not Available [facility] 07/17/2022 06:05:13 Past Encounters Encounter ID Performer Location Encounter Start Date Encounter Closed Date Diagnosis/Indication Diagnosis SNOMED-CT Code Diagnosis ICD10 Code Diagnosis Note [id number] [facility] Latanya mota [address] [place] [address] 08/10/2020 00:00:00 08/10/2020 08:53:15 [id number] [facility] Latanya [address] [place] [address] 02/06/2021 00:00:00 02/06/2021 21:33:35 [id number] [facility]eliovi lle [address] [facility] [address] [place] [place] [address] 06/18/2021 00:00:00 06/18/2021 08:40:12 [id number] [facility] Celiovi lle [address] [place] [address] 11/06/2021 00:00:00 11/06/2021 10:37:58 [id number] [facility] [address] [facility] [address] [place] [address] 04/15/2022 00:00:00 04/15/2022 16:23:48 [id number] ALBER Watts [facility] [address] [facility] [address] [place] [address] 08/12/2022 11:25:41 08/12/2022 12:01:51 Congestive heart failure 37495700 I50.9 Continue follow-up with cardiology (Dr. Adler). He states he is not on metolazone anymore, did not seem to be helping. He will review his labs with Dr. Adler today. Will also review those when we receive a copy. Screening for malignant neoplasm of colon 587509355 Z12.11 [id number] ALBER Watts [address] [place] [address] 10/29/2022 09:09:37 10/29/2022 13:37:22 Body mass index 40+ - severely obese 552518175 Z68.41 He was previously on contrave but [...] ID Guarantor Name 08/12/2022 1 [place] [id number] Jackeline Garcia [place] [id number] 71 Saurabh Jones [place] 10/29/2022 1 [place] [id number] Jackeline Garcia [place] [id number] 71 Saurabh Metcalf Notes Date Note Type Note Provider Name and Address Organization Details Recorded Time 08/12/2022 text/html Pt. is here to follow-up after seeing professor of sociology (Dr. adler) on Friday last week and then he labs done on Friday. He states his office just called to review his labs and he will address that with them today. He did mention his states his kidney function was abnormal and his iron levels are elevated. ALBER Watts [address] [employer], [place], [address], [employer] 08/12/2022 12:25:12 10/29/2022 text/html Pt. here to talk about weight loss. He would like to get back on medication. ALBER Watts [address] [employer], [place], [address], [employer] 10/29/2022 13:07:13
--- OUTSIDE RECORDS SUMMARY | 2024-09-04 21:00 | XMS_ITS | Clinical Summary ---
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
[2024-09-04 21:01] VITALS: BP 102/70; PULSE 70; RESP 16; TEMP 36.8; O2SAT 98
[2024-09-04 21:59] VITALS: BP 101/71; PULSE 70; RESP 16; O2SAT 95
--- OUTSIDE RECORDS SUMMARY | 2024-09-04 22:12 | XMS_ITS | Referral Summary ---
Author Organization [facility] [place] [address] [facility] [address] Address [address] [place] [address] Care Team Providers Care Plastic Parts Fabricator Trimmer Name Role Phone Kayla Khan Primary Care Provider [phone] Encounters Date Type Department Care Team Description 08/30/2024 Telephone [facility] ([facility]) - [facility] ENT [address] [facility] [address] [place] [address] [place] [address] Gianna Garza MS 08/19/2024 8:30 AM CDT Office Visit [facility] Cardiology [address] [place] [address] Mercy Toussaint NP Paroxysmal atrial fibrillation (HCC); Chronic anticoagulation; H/O cardiomyopathy; Lipid screening; Class 2 severe obesity due to excess calories with serious comorbidity and body mass index (BMI) of 37.0 to 37.9 in adult (HCC) 08/04/2024 Telephone [facility] ([facility] - [facility] ENT [address] [facility] [address] [place] [address] [place] [address] Gianna Garza MS 08/03/2024 Telephone [facility] ([facility]) - [facility] ENT [address] [facility] [address] [place] [address] [place] [address] Gianna Garza, from Last 3 Months Allergies [...] action 02/13/2022 Coronary artery disease invo lving [place] coronary artery of [place] heart without angina pectoris 02/13/2022 Dilated cardiomyopathy [...] Final Result from Last 3 Months Insurance [facility] ACCESS CHOICE ANTHEM ACCESS CHOICE ANTHEM ACCESS CHOICE Care Teams Plastic Parts Fabricator Trimmer Relationship Specialty Start Date End Date Kayla Khan PA [address] [place] [address] [place] [address] PCP - General 04/08/23
--- OUTSIDE RECORDS SUMMARY | 2024-09-04 22:12 | XMS_ITS | Clinical Summary ---
Author Organization [facility] [place] [address] Address [address] [place] [address] Care Team Providers Care Celebrity Manager Name Role Phone Kayla Khan Primary Care Provider [phone] Allergies No known active allergies Medications aspirin [...] action 02/13/2022 Coronary artery disease invo lving [place] coronary artery of [place] heart without angina pectoris 02/13/2022 Dilated cardiomyopathy 02/13/2022 Paroxysmal atrial fibrillation 02/13/2022 Chronic anticoagulation 02/13/2022 Encounters Date Type Department Care Team Description 08/30/[address] [facility] Advanced Medicine ([facility]) - [facility] ENT [address] [facility] [address] [place] [address] [place] [address] Gianna Garza, MS 08/19/2024 8:30 AM CDT Office Visit [facility] Cardiology [address] [place] [address] Mercy Toussaint NP Paroxysmal atrial fibrillation (HCC); Chronic anticoagulation; H/O cardiomyopathy; Lipid screening; Class 2 severe obesity due to excess calories with serious comorbidity and body mass index (BMI) of 37.0 to 37.9 in adult (HCC) 08/04/[address] [facility] Advanced [facility] ([facility]) - [facility] ENT [address] [facility] [address] [place] [address] [place] [address] Gianna Garza, 08/03/2024 Telephone [facility] ([facility]) - [facility] ENT [address] [facility] [address] [place] [address] [place] [address] Gianna Garza, MS from Last 3 Months [...] ACCESS CHOICE ANTHEM ACCESS CHOICE Care Teams Celebrity Manager Relationship Specialty Start Date End Date Kayla Khan PA [address] [place] [address] PCP - General 04/08/23
--- OUTSIDE RECORDS SUMMARY | 2024-09-04 22:12 | XMS_ITS | Clinical Summary ---
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
--- NOTE | 2024-09-04 22:50 | ED_ITS ---
HPI - Extremity Injury (Lower) General Chief Complaint: Extremity Injury, Lower Stated Complaint: Back/hip (R), slipped in shower Time Seen by Provider: 09/04/24 22:04 Source: patient Mode of arrival: ambulatory Limitations: no limitations History of Present Illness HPI Narrative: Patient is a 58-year-old male, with PMH of CHF, AFIB on xarelto, who presents the ED with report of a fall. Patient reports he stepped out of his stand up shower today and slipped, landing onto his right side. He complains of pain to his right lower back, right hip. States he was initially able to stand upright, but began having worsening pain causing difficulty ambulating. He did not hit his head or lose consciousness. Denies chest or rib pain, neck pain. Related Data Home Medications ?Medication ?Instructions ?Recorded ?Confirmed ?Last Taken ?Type aspirin 81 mg tablet,delayed 81 mg PO QAM 09/24/22 07/27/24 02/13/23 09:00 History release (Adult Low Dose Aspirin) furosemide 80 mg tablet 80 mg PO BID 09/24/22 07/27/24 02/13/23 09:00 History sacubitril 97 mg-valsartan 103 mg 1 tablet PO BID 09/24/22 07/27/24 02/13/23 09:00 History tablet (Entresto) carvedilol 6.25 mg tablet 6.25 mg PO BID 02/10/23 07/27/24 02/13/23 09:00 History rivaroxaban 20 mg tablet (Xarelto) 20 mg PO HS 02/12/23 07/27/24 02/13/23 17:00 History bupropion HCl 300 mg 24 hr tablet, 300 mg PO DAILY 06/26/24 07/27/24 Unknown History extended release rosuvastatin 5 mg tablet 5 mg PO DAILY 06/26/24 07/27/24 Unknown History Allergies Allergy/AdvReac Type Severity Reaction Status Date / Time No Known Allergies Allergy Verified 09/04/24 20:59 Review of Systems Review of Systems: All systems reviewed & are unremarkable except as noted in HPI. All systems reviewed & are unremarkable except as noted in HPI and below PMFSH Past Medical History Medical History Rectal polyp Hx of cataract Blood bacterial culture positive Throat infection Leukocytosis Abscess, peritonsillar Colon cancer screening Thrombocytopenia Nonischemic cardiomyopathy Heart failure with reduced ejection fraction Hypotension Elevated liver enzymes Elevated LFTs DVT prophylaxis Obstructive sleep apnea LAVON (obstructive sleep apnea) Hypertension Surgical History Surgical History Hx of cataract surgery S/P tendon repair right hand H/O kyphoplasty Family History Family History Father Heart disease Pulmonary disease Cancer Other Family history non-contributory Social History Social History Social History: Smoking status: Never smoker Second hand tobacco smoke exposure: No Alcohol intake: current Drinks per week: 12 Alcohol use details: BEERS Substance use: never Substance use type: does not use Do You Feel Safe in your Home?: Yes Lack of Transportation: No Lack of Food: Never True Current Housing: I Have Housing Concerned About Future Housing: No Difficulty Paying Gas/Electric Bills: No Difficulty Paying for Meds: No Currently Unemployed: No Education: Associate Degree Difficulty w/ Childcare or Family Care: No Living arrangements: with family 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 HEAD: Normocephalic, atraumatic. RESPIRATORY: Airway patent, respirations nonlabored. Clear to auscultation bilaterally, no rales, rhonchi, wheezing. CARDIOVASCULAR: Regular rate and rhythm without murmurs, rubs, or gallops. Pedal pulses intact. MUSCULOSKELETAL: No gross deformities. Discomfort reported with straight leg raise on right. Tenderness to palpation throughout right lumbosacral region, right lateral hip joint. Pelvis appears stable. Sensation intact throughout extremity. No appreciable midline lumbar spinal tenderness. SKIN: Warm, dry, normal color. NEURO: A&O X3. Speech clear. Cranial nerves II-XII grossly intact. Steady gait. No ataxic movements. PSYCHIATRIC: Appropriate mood and affect. Normal interaction. Course Vital Signs Vital signs: Vital Signs Temperature 98.2 F 09/04/24 21:01 Pulse Rate 70 09/04/24 21:01 Respiratory Rate 16 09/04/24 21:01 Blood Pressure 102/70 09/04/24 21:01 Pulse Oximetry 98 09/04/24 21:01 Oxygen Delivery Room Air 09/04/24 21:01 Temperature 98.2 F 09/04/24 21:01 Pulse Rate 70 09/04/24 21:59 Respiratory Rate 16 09/04/24 21:59 Blood Pressure 101/71 09/04/24 21:59 Pulse Oximetry 95 09/04/24 21:59 Oxygen Delivery Room Air 09/04/24 21:01 MDM - Extremity Injury (Lower) MDM Narrative Medical decision making narrative: Patient presented to ED status post fall out of the shower, complaining of right lower back, right hip pain. Vital signs are stable upon arrival. Patient mildly uncomfortable appearing, but not in distress. Appears neurologically intact. No red flag symptoms. No evidence of cord compression or cauda equina. Chest x-ray clear. Lumbar spine x-ray showing degenerative changes but no acute osseous abnormality. X-ray of right hip/pelvis showing possible pubic rami fracture. Recommended CT. CT of the pelvis was obtained and without acute pelvic or hip fracture. Showing lumbar spondylosis, no acute abnormality throughout lumbar region either. Patient given pain medication in the ED. On re-evaluation, patient feeling improved but having trouble ambulating or even getting out of bed. Given additional pain control. Patient now able to ambulate. Still with pain, but feels comfortable going home at this point. Will send home with pain medication, muscle relaxers, lidocaine patches. Discussed close follow-up, strict return precautions. Patient in agreement with plan. Discharged in stable condition. Medical Records Attestation: I reviewed the patient's medical records. Imaging Data Attestation: I personally reviewed and interpreted this imaging study as follows: Radiologist's impression: ITS Impressions Chest X-Ray 09/04/24 21:39 IMPRESSION: No acute cardiopulmonary pathology. Lumbar Spine X-Ray 09/04/24 21:40 IMPRESSION: No acute osseous abnormality lumbar spine. Hip/Pelvis X-Ray 09/04/24 21:44 IMPRESSION: Possibility of fractures in the superior pubic rami cannot be excluded. Clinical correlation and if warranted CT is advised. STAT RAD CT pelvis: No femoral neck or intertrochanteric hip fracture. No pelvic fracture. Intact bilateral see. Inferior pubic rami. Degenerative changes of the bilateral hip joints, pubic symphysis, and sacroiliac joints. Diffuse osseous demineralization. Lumbar spondylosis and disc space narrowing. Intact sacrum. Intrapelvic contents are within normal range for the patient's age. Discharge Plan Discharge Clinical Impression: Fall from ground level Strain of lumbar region Qualifiers: Encounter type: initial encounter Qualified Code(s): S39.012A - Strain of muscle, fascia and tendon of lower back, initial encounter Patient Disposition: Home Condition: Stable Instructions: Antibiotic Form, Low Back Strain (ED), Acute Low Back Pain (ED) Additional Instructions: Continue Tylenol as needed for pain. [place] as needed for more severe pain. You may use ice/heat, lidocaine patches to area of pain. Take muscle relaxers as needed and prescribed. Recommend taking these at night as they may cause sedation. Do not drive, operate heavy machinery, drink alcohol while on muscle relaxers as this may cause further sedation. Follow-up with your primary care doctor for further evaluation. Return to the ED if you experience worsening or severe pain, recurrent injury, numbness in groin or legs, going to the bathroom without meaning to, unable to keep down food or drink, or any other symptoms of concern. Patient Language: Gibraltarian Prescriptions: New hydrocodone-acetaminophen 5-325 mg tablet 1 tablet PO Q6H PRN (Reason: pain) Qty: 15 0RF methocarbamol 750 mg tablet 1,500 mg PO TID PRN (Reason: muscle spasm) Qty: 15 0RF lidocaine 5 % adhesive patch,medicated 1 patch topical DAILY PRN (Reason: pain) Qty: 15 0RF Rx Instructions: leave on most painful area for up to 12 hrs No Action bupropion HCl 300 mg tablet extended release 24 hr 300 mg PO DAILY rosuvastatin 5 mg tablet 5 mg PO DAILY carvedilol 6.25 mg tablet 6.25 mg PO BID aspirin [Adult Low Dose Aspirin] 81 mg Tablet,Delayed Release (Dr/Ec) 81 mg PO QAM furosemide 80 mg tablet 80 mg PO BID sacubitril-valsartan [Entresto] 97-103 mg tablet 1 tablet PO BID Xarelto 20 mg tablet 20 mg PO HS Zepbound 2.5 mg/0.5 mL pen injector 2.5 mg subcut WEEKLY Qty: 2 0RF Rx Instructions: for 4 weeks Follow-up/Referrals: Darrin Hendrickson MD [Primary Care Provider] - Time of Disposition: 02:18
[2024-09-04] MEDS: HYDROcodone/acetaminophen (*CRX) 5-325 MG TABLET 1 TAB PO (23:27)
[2024-09-04] MEDS: CYCLOBENZAPRINE HCL 5 MG TABLET PO (23:28)
[2024-09-05 00:15] VITALS: BP 121/84; PULSE 89; RESP 18; O2SAT 99
[2024-09-05] MEDS: MORPHINE SULFATE (*CRX) 4 MG/ML INJ IV PUSH (01:10)
[2024-09-05] MEDS: ONDANSETRON INJ 4 MG/2 ML VIAL IV PUSH (01:11)
[2024-09-05] MEDS: ACETAMINOPHEN 325 MG TABLET 650 MG PO (01:59)
[2024-09-05] MEDS: diazePAM INJ (*CRX) 10 MG/2 ML SYRINGE 5 MG IV PUSH (02:00)
[2024-09-05 02:28] VITALS: BP 119/74; PULSE 79; RESP 16; O2SAT 99
[2024-09-05 02:30] VITALS: BP 119/74; PULSE 79; RESP 16; O2SAT 99
== END 2024-09-05 02:34 | disposition home or self-care (01) ==
PROVIDERS: Emergency Provider Physician Assistant; PCP Family Medicine
DX: S39.012A Strain of muscle, fascia and tendon of lower back, initial encounter (principal); W18.2XXA Fall in (into) shower or empty bathtub, initial encounter; I48.91 Unspecified atrial fibrillation; Z79.01 Long term (current) use of anticoagulants; I50.9 Heart failure, unspecified; Z79.82 Long term (current) use of aspirin; G47.33 Obstructive sleep apnea (adult) (pediatric); I11.0 Hypertensive heart disease with heart failure
CPT/HCPCS: 71045; 72100; 72192; 73502; 96374; 96375; 99285; A9270; J2270; J2405; J3360

== ENCOUNTER 2024-12-03 07:47 | Outpatient (CLI) | payer BC, SELFPAY ==
--- OUTSIDE RECORDS SUMMARY | 2024-12-03 07:50 | XMS_ITS | Clinical Summary ---
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 Role Phone Kayla Khan Primary Care Provider [phone] Allergies No known active allergies Medications aspirin (Adult Low Dose Aspirin) 81 mg enteric coated tablet Take 1 tablet (81 mg total) by mouth daily 3 Active carvediloL (COREG) 6.25 mg tablet Take 1 tablet (6.25 mg total) by mouth 2 (two) times a day with meals 180 tablet 5 Active buPROPion XL (WELLBUTRIN XL) 300 mg 24 hr tablet Take 1 tablet (300 mg total) by mouth every morning 5 Active allopurinoL (ZYLOPRIM) 100 mg tablet Take 1 tablet (100 mg total) by mouth daily Active Entresto 97-103 mg tablet TAKE 1 TABLET BY MOUTH TWICE DAILY 180 tablet 5 Active Xarelto 20 mg tablet TAKE 1 TABLET DAILY WITH DINNER 90 tablet 3 5 Active furosemide (LASIX) 80 mg tablet TAKE 1 TABLET TWICE A DAY 180 tablet 3 5 Active Xarelto 20 mg tablet TAKE 1 TABLET DAILY WITH DINNER 90 tablet 3 4 11/05/19 25 Discontinued furosemide (LASIX) 80 mg tablet TAKE 1 TABLET TWICE A DAY 180 tablet 1 5 11/23/19 25 Discontinued Active Problems Problem Noted Date Diagnosed Date H/O cardiomyopathy 04/08/2023 Medication side effects 12/03/2022 Class 2 severe obesity due t o excess calories with serious comorbidity and body mass index (BMI) of 39.0 to 39.9 in adult 02/13/2022 Chronic heart failure with preserved ejection fr action 02/13/2022 Coronary artery disease invo lving [place] coronary artery of [place] heart without angina pectoris 02/13/2022 Dilated cardiomyopathy 02/13/2022 Paroxysmal atrial fibrillation 02/13/2022 Chronic anticoagulation 02/13/2022 Encounters Date Type Department Care Team Description 11/04/2024 Telephone [facility] Cardiology [address] [place] [address] Saravanan Mckeon MD from Last 3 Months Surgical History Surgery Date Site/Laterality Comments KYPHOPLASTY T7 CATARACT EXTRACTION 10/2019 FRACTURE SURGERY 2010 SPINE SURGERY 2010 VASECTOMY 1992 Medical History Medical History Date Comments Atrial [...] 8:31 AM CDT Height 188 cm (6' 2) 08/19/2024 8:31 AM CDT Body Mass Index [...] (1 of 2) 10/21/2017 Covid-19 Vaccine (3 2023-2 5 season) 2024 03/30/2021, 07/27/2020 Influenza Vaccine (#1) 2025 , 06/03/2019, 06/03/2019, Additional history exists DTaP/Tdap/Td Vaccine (2 - Td or Tdap) 08/14/2030 08/14/2020 Insurance [employer] CHO[employer] ANTHEM ACCESS CHOICE Care Teams 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
--- OUTSIDE RECORDS SUMMARY | 2024-12-03 07:50 | XMS_ITS | Data Portability ---
Author Organization [place] [facility], Main Office Address [address] [place] [address] Assessment No assessment recorded. Plan of Treatment Reminders Order Date Submit Date Provider Last Modified By Organization Details Last Modified Time Details Appointments None recorded. Lab None recorded. Referral None recorded. Procedures colonoscopy screening (PROC) - please call pt to schedule 2022 023 Fili Barahona MD, [address], [place], [address], 3 09:06:14 Surgeries None recorded. Imaging None recorded. Medication Orders Saxenda 3 mg/0.5 mL (18 mg/3 mL) subcutaneou s pen injector 2022 023 [id number], [address], [place], [place], [id number], 3 13:06:36 Patient TargetsNo targets recorded. Patient InstructionsNo instructions recorded. Reason for Referral None Reported. Results Created Date Observation Date Name Description Value Unit Range Abnormal Flag Note LastModifiedBy Organization Detail LastModifiedTime 11/07/19 22 11/06/2021 URIC ACID SERUM uric acid 7.2 mg/dL 3.5-8. 5 Not Available [facility] (Lab) [address] [place], [address], 11/06/2021 13:55:03 11/07/19 22 11/06/2021 BASIC METAB OLIC PANEL sodium 141 mmol/ L 137-14 5 Not Available [facility] (Lab) [address] [place], [address], 11/06/2021 13:55:01 11/07/19 22 11/06/2021 BASIC METAB OLIC PANEL potassium 4.9 mmol/ L 3.5-5. 1 Not Available [facility] (Lab) [address] [place], [address], 11/06/2021 13:55:01 11/07/19 22 11/06/2021 BASIC METAB OLIC PANEL chloride 107 mmol/ L 98-107 Not Available [facility] (Lab) [address] [place], [address], 11/06/2021 13:55:01 11/07/19 22 11/06/2021 BASIC METAB OLIC PANEL carbon dioxide 26 mmol/ L 22-30 Not Available [facility] (Lab) [address] [place], [address], 11/06/2021 13:55:01 11/07/19 22 11/06/2021 BASIC METAB OLIC PANEL anion gap 12.9 mmol/ L 14-22 low Not Available [facility] (Lab) [address] [place], [address], 11/06/2021 13:55:01 11/07/19 22 11/06/2021 BASIC METAB OLIC PANEL glucose 111 mg/dL 70-99 high Not Available [facility] (Lab) [address] [place], [address], 11/06/2021 13:55:01 11/07/19 22 11/06/2021 BASIC METAB OLIC PANEL BUN 17 mg/dL 8-19 Not Available [facility] (Lab) [address] [place], [address], 11/06/2021 13:55:01 11/07/19 22 11/06/2021 BASIC METAB OLIC PANEL creatinine 0.88 mg/dL 0.66-1 .25 Not Available [facility] (Lab) [address] [place], [address], 11/06/2021 13:55:01 11/07/19 22 11/06/2021 BASIC METAB OLIC PANEL GFR >60 Refer ence Range : Baird ge GFR Healt hy Adult : >60 mL/mi n/1.7 3 m2 Chron ic Kidne y Disea se: 15-60 mL/mi n/1.7 3 m2 Kidne y Failu re: <15/m L/min /1.73 m2 www.n iddk. nih.g ov The MDRD study equat ion has not been valid ated in child katina <18 years of age; pregn ant women ; the elder ly >85 years of age; or in some racia l or ethni c subgr oups, such as Raza nics. Outsi de the valid ated ro [...] calcu lator is avail able on the [facility] websi te: https ://olegario berkowitz.julissa alexandra.o rg/pr ofess ional s/kdo qi/gf r_cal culat or Not Available [facility] (Lab) [address] [place], [address], 11/06/2021 13:55:01 11/07/19 22 11/06/2021 BASIC METAB OLIC PANEL calcium 9.6 mg/dL 8.4-10 .2 Not Available [facility] (Lab) [address] [place], [address], 11/06/2021 13:55:01 10/19/19 22 10/18/2021 XR, chest , 2 view No observ ation record ed. [id number], [place], [address], 07/17/2022 06:05:32 10/20/19 22 10/19/2021 XR, chest , 2 view No observ ation record ed. [id number] [place] [address] [address], [place], [address], 07/17/2022 06:05:32 10/21/19 22 10/20/2021 XR, chest , 2 view No observ ation record ed. [id number] [place] [address] [address], [place], [address], 07/17/2022 06:05:32 10/22/19 22 10/20/2021 US, abdom en No observ ation record ed. [id number] [place] [address] [address], [place], [address], 07/17/2022 06:05:32 10/22/19 22 10/21/2021 XR, chest , 2 view No observ ation record ed. [id number] [place] [address] [address], [place], [address], 07/17/2022 06:05:32 10/25/19 22 10/24/2021 XR, chest , 2 view No observ ation record ed. [id number] [place] [address] [address], [place], [address], 07/17/2022 06:05:32 02/13/20 23 02/12/2023 CT, neck, soft tissu e, w/ contr ast No observ ation record ed. [email or web address] [address], [place], [address], 02/13/2023 07:56:38 Result Notes None recorded. Problems Name Problem SNOMED Code Status Onset Date Resolution Date Notes Provider Name and Address Organization Details Recorded Time Disorder of shoulder 431115882 Active Not Available [employer] 03/01/202 3 05:58:50 Benign essentia l hyperten fabrice 7109169 Active Not Available [facility] 3 05:58:50 Hernia of abdomina l wall Active Not Available [facility] 3 05:58:50 Gastroes ophageal reflux disease 823478532 Active Not Available [facility] 3 05:58:50 Lesion of nose 709889427 Completed Not Available [facility] 3 05:58:51 Skin irritati on 899113569 Completed Not Available [facility] 3 05:58:51 History of vertebra l fracture 476681571 Active traumati c T7 03/2012, s/p marybeth Quintero Not Available [facility] 3 05:58:51 Vertigo 076900101 Active Not Available [facility] 3 05:58:51 Obesity 851722714 Active Not Available [facility] 3 05:58:51 Furuncle 146886327 Completed Not Available [facility] 3 05:58:51 Primary erectile dysfunct ion 741704753 Active Not Available [facility] 3 05:58:51 Bilatera l tinnitus 41655881773 02 Active Not Available [facility] 3 05:58:51 Diarrhea 65357386 Completed Not Available [facility] 3 05:58:52 Obstruct monico sleep apnea syndrome 53866882 Active Not Available [facility] 3 05:58:52 Congesti ve heart failure 92650053 Active 2021 Not Available [facility] 3 05:58:51 Gout 95465461 Active 2021 Not Available [facility] 3 05:58:52 Problem Notes None recorded. Procedures Surgical History Date Name Laterality Status Provider Name and Address Organization Details Recorded Time 3 Colonoscopy completed Lisa Banuelos RN [place] [employer] 10/29/2022 09:21:34 Imaging Results None recorded. Procedure Notes None recorded. Medical Equipment None [...] Available Not Available No t Available Flulaval 1159-0601 45 mcg (15 mcg x 3)/0.5 mL [...] Available Not Available Vitals Date Recorded Body height Body mass index (BMI) Body weight Body temperature Heart rate Oxygen saturation Oxygen saturation in Arterial blood by Pulse oximetry Systolic And Diastolic Provider Name and Address Organization Details Last Updated DateTime 3 187.96 cm 39.9 kg/m2 111149. 23 g 97.3 [degF] 71 /min 97 % 97 % 100/74 mm[Hg] Valeri Olson MA [employer] 3 11:34:58 Date Recorded Body height Body mass index (BMI) Body weight Body temperature Heart rate Oxygen saturation Oxygen saturation in Arterial blood by Pulse oximetry Systolic And Diastolic Provider Name and Address Organization Details Last Updated DateTime 3 187.96 cm 40.6 kg/m2 004757. 19 g 98.8 [degF] 76 /min 98 % 98 % 132/80 mm[Hg] Lisa Banuelos RN [facility] [employer] 3 09:20:18 Date Recorded Body mass index (BMI) Body height Oxygen saturation Oxygen saturation in Arterial blood by Pulse oximetry Heart rate Body temperature Body weight Systolic And Diastolic Provider Name and Address Organization Details Last Updated DateTime 2 36.1 kg/m2 187.96 cm 98 % 98 % 81 /min 96.8 [degF] 721494. 46 g 134/82 mm[Hg] Not Available [facility] 3 05:56:48 Date Recorded Body mass index (BMI) Body height Oxygen saturation Oxygen saturation in Arterial blood by Pulse oximetry Heart rate Body temperature Body weight Systolic And Diastolic Provider Name and Address Organization Details Last Updated DateTime 2 39.2 kg/m2 187.96 cm 95 % 95 % 83 /min 97.5 [degF] 929124. 67 g 116/62 mm[Hg] Not Available [facility] 3 05:56:48 Social History Question Answer Notes LastModified by Pan[employer] Details LastModified Time Tobacco Smoking Status Never Smoker Yoanna avitia [facility] 10/29/2022 09:10:32 What Is Your Level Of Caffeine Consumption? Occasional [id number] Information not available 07/17/2022 How Much Tobacco Do You Chew? None [id number] Information not available 07/17/2022 What Type Of Diet Are You Following? REGULAR Low Sodium Diet [email or web address] Information not available 08/12/2022 Which Illicit Or Recreational Drugs Have You Used? None Information not available 10/29/2022 Are You Following A Low Salt Diet? Yes Information not available 10/29/2022 Do You Have Any Dietary Restrictions? Yes Low Sodium [email or web address] Information not available 10/29/2022 Sex: Unknown Functional Status Question Answer Note LastModified by [employer] Details LastModified Time Do you use any illicit or recreational drugs? No [email or web address] Information not available 10/29/2022 Do you or have you ever used any other forms of tobacco or nicotine? No [email or web address] Information not available 10/29/2022 What is your level of alcohol consumption? Occasional [id number] Information not available 07/17/2022 Do you or have you ever used smokeless tobacco? 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 Never used electronic cigarettes [email or web address] Information not available 10/29/2022 What is your exercise level? Moderate [id number] Information not available 07/17/2022 Mental Status None recorded. Family History Relationship Description Onset Age of this Age Resolved Age Notes LastModified by Organization Details LastModified Time Father No current problems or disability [id number] Not available 07/17/2022 05:53:43 Mother No current problems or disability [id number] Not available 07/17/2022 05:53:43 Medical History No medical history recorded. Immunizations Vaccine Type Date Status Note Provider Nam e and Address Organization Details Recorded Time SARS-COV-2 (COVID-19) vaccine, UNSPECIFIED 1 completed Not Available [facility] 07/17/2022 06:05:12 Influenza, split virus, quadrivalent, PF 3 completed Not Available [facility] 07/17/2022 06:05:12 Influenza, split virus, quadrivalent, preservative 0 completed Not Available [facility] 07/17/2022 06:05:12 Influenza, split virus, trivalent, preservative 4 completed Not Available [facility] 07/17/2022 06:05:13 Influenza, split virus, quadrivalent, PF 1 completed Not Available [facility] 07/17/2022 06:05:13 Influenza, split virus, quadrivalent, PF 0 completed Not Available [facility] 07/17/2022 06:05:13 Influenza, split virus, quadrivalent, PF 9 completed Not Available [facility] 07/17/2022 06:05:13 Past Encounters Encounter ID Performer Location Encounter Start Date Encounter Closed Date Diagnosis/Indication Diagnosis SNOMED-CT Code Diagnosis ICD10 Code Diagnosis Note [id number] [facility] Family [facility] Gwen breg [address] [facility] [place] [address] 08/10/2020 00:00:00 08/10/2020 08:53:15 [id number] Gris Gee MD [facility] [place] [address] [place] [address] [place] [address] 02/06/2021 00:00:00 02/06/2021 21:33:35 [id number] [facility] [place] [address] [place] [address] [place] [address] 06/18/2021 00:00:00 06/18/2021 08:40:12 [id number] Gris Gee MD [facility] [place] [address] [place] [address] [place] [address] 11/06/2021 00:00:00 11/06/2021 10:37:58 [id number] ALBER Watts [facility] [place] [address] [place] [address] [address] [place] [address] 04/15/2022 00:00:00 04/15/2022 16:23:48 [id number] ALBER Watts [facility] [place] [address] [place] [address] [address] [facility] [place] [address] 08/12/2022 11:25:41 08/12/2022 12:01:51 Congestive heart failure 28481270 I50.9 Continue follow-up with cardiology (Dr. Adler). He states he is not on metolazone anymore, did not seem to be helping. He will review his labs with Dr. Adler today. Will also review those when we receive a copy. Screening for malignant neoplasm of colon 324392520 Z12.11 [id number] Ellen Jean Baptiste MD [facility] [place] [address] [facility] [address] [address] [place] [address] 10/29/2022 09:09:37 10/29/2022 13:37:22 Body mass index 40+ - severely obese 883581198 Z68.41 He was previously on contrave but [...] Recorded Advance Directives Directive None Recorded Payers Insurance Date Sequence Insurance Name Policy Number Policy Alexander Covered Member ID Alexander Member ID Guarantor Name 11/04/2022 1 [place] [id number] Jackeline Metcalf [id number] Saurabh Metcalf Notes Date Note Type Note Provider Name and Address Organization Details Recorded Time 08/12/2022 text/html Pt. is here to follow-up after seeing scientific diver (Dr. adler) on Friday last week and then he labs done on Friday. He states his office just called to review his labs and he will address that with them today. He did mention his states his kidney function was abnormal and his iron levels are elevated. ALBER Watts [email or web address], [place], [address], [employer] 08/12/2022 12:25:12 10/29/2022 text/html Pt. here to talk about weight loss. He would like to get back on medication. ALBER Watts [address], [address], [place], [address], [employer] 10/29/2022 13:07:13
--- OUTSIDE RECORDS SUMMARY | 2024-12-03 07:50 | XMS_ITS | Clinical Summary ---
Author Organization [facility] Address [address] [place] [address] Care Team Providers Care Associate Accountant Name Role Phone Unavailable Primary Care Provider Unavailabl e Social History Tobacco Use Types Packs/Day Years Used Date Smoking Tobacco: Never Assessed Sex and Gender Information Value Date Recorded Sex Assigned at Not on file Legal Sex Male 10:37 PM [employer] Gender Identity Not on file Sexual Orientation Not on file Last Filed Vital Signs Vital Sign Reading Time Taken Comments Blood Pressure 145/81 09/17/2017 7:28 AM CDT Pulse 80 09/17/2017 7:28 AM CDT Temperature - - Respiratory Rate - - Oxygen Saturation - - Inhaled Oxygen Concentration - - Weight 125.2 kg (276 lb) 09/17/2017 7:28 AM CDT Height 188 cm (6' 2) 09/17/2017 7:28 AM CDT Body Mass Index [...]
--- OUTSIDE RECORDS SUMMARY | 2024-12-03 07:50 | XMS_ITS | Referral Summary ---
Author Organization [facility] [address] [facility] [address] Address [address] [place] [address] Care Team Providers Care Offset Lithographic Press Operator Name Role Phone Kayla Khan Primary Care Provider [phone] Encounters Date Type Department Care Team Description 11/04/2024 Telephone [facility] Cardiology [address] [place] [address] Saravanan Mckeon MD from Last 3 Months Allergies No known [...] action 02/13/2022 Coronary artery disease invo lving quechan coronary artery of quechan heart without angina pectoris 02/13/2022 Dilated cardiomyopathy [...] Plan of Treatment Not on file Insurance [employer] ACCESS CHOICE ANTHEM ACCESS CHOICE ANTHEM ACCESS CHOICE Care Teams Offset Lithographic Press Operator Relationship Specialty Start Date End Date Kayla Khan PA [address] [place] [address] [place] [address] PCP - General 04/08/23
== END 2024-12-03 07:48 | disposition home or self-care (01) ==
LOC: ANHAUDIO 07:47
PROVIDERS: PCP Family Medicine; Visit Provider Physician Assistant
DX: H93.13 Tinnitus, bilateral (principal); H93.8X9 Other specified disorders of ear, unspecified ear; H74.8X2 Other specified disorders of left middle ear and mastoid; H91.90 Unspecified hearing loss, unspecified ear
CPT/HCPCS: 92557; 92567